=== PATIENT | male | born 1975 | race Caucasian/White ===

== ENCOUNTER 2017-06-26 11:18 | Emergency (ER) | payer OTHER, SELFPAY ==
[2017-06-26 11:19] VITALS: BP 153/108; PULSE 84; RESP 18; TEMP 37; O2SAT 95; BMI 41.5
--- NOTE | 2017-06-26 11:52 | RAD_ITS ---
STUDY: X-RAY CHEST REASON FOR EXAM: Male, 41 years old. Shortness of breath. Chest tightness. TECHNIQUE: Single AP portable view of the chest. COMPARISON: Comparison is made with prior study dated October 10, 2015. FINDINGS: EKG electrodes are seen. Stable elevation of the right hemidiaphragm. No acute abnormality is seen. There is no demonstrated pleural abnormality. There is borderline cardiomegaly. Normal mediastinum and justin. Normal visualized pulmonary arteries. Normal visualized aortic arch and descending thoracic aorta. Normal visualized thoracic spine. Normal visualized ribs, clavicles, and shoulders. There is no demonstrated abnormality of the visualized soft tissue structures of the upper abdomen. RAD/Chest 1 View (Portable) IMPRESSION: No acute abnormality is seen. Electronically Signed: Ambrose Pena MD at 12:52 EDT Tel [phone], Service support ,
--- NOTE | 2017-06-26 11:52 | EKG12_ITS ---
Test Reason : CHEST HEAVINESS Blood Pressure : / mmHG Vent. Rate : 072 BPM Atrial Rate : 072 BPM P-R Int : 154 ms QRS Dur : 160 ms QT Int : 424 ms P-R-T Axes : 021 013 -11 degrees QTc Int : 464 ms Normal sinus rhythm Right bundle branch block T wave abnormality, consider inferior ischemia Abnormal ECG Confirmed by MYRA COTTO, AILEEN ([id number]), editor publications HAYLEE BAKER ([id number]) on 07/02/2017 2:50:04 PM Referred By: ATIF Confirmed By:AILEEN RENTERIA MD
[2017-06-26 11:59] VITALS: BP 144/99; PULSE 76; RESP 16; O2SAT 95
[2017-06-26 12:06] VITALS: BP 144/99; BP 145/109; BP 150/107; PULSE 76; PULSE 78; PULSE 82
[2017-06-26] MEDS: 0.9% Normal Saline 1,000 ML 1000 ML IV (12:15)
[2017-06-26 12:21] LABS: Absolute Lymphocyte Count 0.72 X10^3/ul (0.83-4.51); Absolute Neutrophil Count 6.1 X10^3/uL (2.0-7.7); Basophil# 0.01 X10^3/uL; Basophil% 0.1 % (0-1); Hematocrit 42.1 % (40-54); Hemoglobin 14.7 g/dl (13.0-16.5); Lymphocyte # 0.72 X10^3/ul (4.0); Lymphocyte % 10.3 % (19-41); Mean Corp Hgb Conc 34.9 g/gl (32-36); Mean Corpuscular Hgb 31.1 pg (27.0-32.0); Mean Corpuscular Volume 89.2 fL (80-94); Mean Platelet Vol. 9.9 fl (6.2-12.0); Monocyte# 0.18 X10^3/uL; Monocyte% 2.6 % (0-10); Neutrophil # 6.06 X10^3/uL (2.7-7.7); Neutrophil % 86.6 % (47-70); Platelet Count 242 K/mm3 (150-450); RBC Distribution Width CV 13.4 % (11.6-14.6); RBC Distribution Width SD 43.2 fl (35.1-43.9); Red Blood Count 4.72 M/mm3 (4.6-6.2)
[2017-06-26 12:23] LABS: POSITIVE COUNT NO; POSITIVE DIFFERENTIAL NO; POSITIVE MORPHOLOGY NO
[2017-06-26 12:33] LABS: Prothrombin Time (Protime)PT. 12.7 SECONDS (11.7-14.9)
[2017-06-26 12:34] LABS: Partial Thromboplast Time 24.1 Seconds (24.1-36.2)
--- NOTE | 2017-06-26 12:43 | ED.DCSUM_ITS ---
- ER Visit Summary Date of Service: 06/26/17 Chief Complaint: Blood in stool History of Present Illness: The patient is a [address] Lindsay. He reports that he has had 2 episodes of bright red blood from the rectum today. He denies having had a hard stool prior to this. No diarrhea. Reports that he is a dull, aching left lower quadrant abdominal pain that began today as well. Is 4 out of 10 at worst and 2 out of 10 currently. Is worsened by nothing and relieved by nothing. He has had nausea without vomiting. Patient also reports that he has had a chest heaviness intermittently for the past 3 days since having an allergic reaction. He reports that it lasts 10-15 minutes at a time. Is not related to exertion periods happening multiple times per day. He does report that he is more short of breath with exertion and usual. He denies any diaphoresis with this pain. Physical Examination: Vitals: Stable. Afebrile. General: Well-nourished and well-developed. Head: Normocephalic atraumatic. Neck: Supple, no lymphadenopathy. No JVD. Nontender. Cardiovascular: Regular rate and rhythm. No murmurs. Respiratory: No respiratory distress. Clear to auscultation bilaterally. Abdominal: Soft, nontender, nondistended, normal bowel sounds. No guarding, rebound, or peritoneal signs. Rectal: No external source of bleeding. No fissures or external hemorrhoids. Stool is brown, with bright red blood. Back: Nontender. Extremities: Nontender, no edema. Skin: Normal color, no rash. Neurologic: Alert and oriented ?3. Cranial nerves II through XII are intact. Normal strength and sensation. Psych: Normal affect. Test Results: EKG is sinus at 72 with right bundle branch block. This is unchanged from March 2015. CBC is remarkable for segment neutrophils of 87 lymphocytes of 10. Of note his hemoglobin is 14.7. INR is 1.0. PTT is 24.1. Chest x-ray shows cardiomegaly and no acute disease. Emergency Department Course and Treatment: Orthostatic vital signs were negative. Patient is resting comfortably. He has had no further bleeding while here. I had a prolonged discussion with the patient and his about treatment options. He was admitted and had a stress test 2 years ago. He does not want to stay for a cardiac workup. Did discuss with him regarding the blood in his stool that likely he would be admitted the hospital overnight and have a repeat hemoglobin. If this is remained stable he will be discharged home. The patient does not want to be admitted to the hospital. I feel that is a reasonable course of action. Treatment Plan: Patient will be discharged instructions to follow-up with Dr. Lindsay as soon as possible. He is also instructed to follow-up with Dr. Roy for further evaluation of the bleeding. Return to the emergency department for worsening bleeding, chest pain, shortness of breath, or for any other concerns. Disposition: To home in improved and stable condition. Impression: 1. Stable lower GI bleed. 2. Atypical chest pain. This note was generated with [employer] dictation software. It may contain incorrect words, spelling, and punctuation that were not noted in review of the chart prior to signing ED Disposition - Plan for ED Patient: Chief Complaint: GI Bleed Instructions: ED Hematochezia Stable, ED Chest Pain Atypical Unkn Cause Referrals: Ellen Lindsay DO [Primary Care Provider] - As soon as possible Rik Roy MD [STAFF PHYSICIAN] - As soon as possible
[2017-06-26 12:46] LABS: Anion Gap 9 (5-15); BUN 18 mg/dL (7-18); Calcium,Total 8.3 mg/dL (8.5-10.1); Chloride 106 mmol/L (98-107); Creatinine, Serum 1.06 mg/dL (0.70-1.30); EST Glomerular Filtration Rate 81 mL/min (>60); Est Glom Filt Rate - Afr Amer 98 mL/min (>60); Estimated Creatinine Clearance 93.74 ml/min; Glucose 117 mg/dL (74-106); Potassium 3.8 mmol/L (3.5-5.1); Sodium Level 140 mmol/L (136-145)
[2017-06-26 13:19] VITALS: BP 136/95; PULSE 57; RESP 19; O2SAT 93
[2017-06-26 13:44] VITALS: PULSE 67; RESP 21; O2SAT 96
== END 2017-06-26 14:06 | disposition home or self-care (01) ==
PROVIDERS: Emergency Provider Emergency Medicine; Family Provider Family Medicine; PCP Family Medicine
DX: K92.1 Melena (principal); R07.89 Other chest pain; I10 Essential (primary) hypertension; I45.10 Unspecified right bundle-branch block; R10.32 Left lower quadrant pain; Z79.899 Other long term (current) drug therapy
CPT/HCPCS: 71045; 80048; 82274; 84484; 85025; 85610; 85730; 93005; 96360; 99285; J7030; A4216

== ENCOUNTER → 2017-09-22 10:05 | Outpatient (CLI) | payer OTHER, SELFPAY ==
[2017-09-22 11:25] LABS: ALB/GLOB Ratio 1.2 RATIO (0.9-2.4); AST(SGOT) 23 U/L (15-37); Alanine Aminotransfer ALT/SGPT 43 U/L (16-61); Albumin, Serum 3.8 g/dL (3.2-5.0); Alkaline Phosphatase 54 U/L (45-117); Anion Gap 9 (5-15); BUN 18 mg/dL (7-18); Calcium,Total 8.2 mg/dL (8.5-10.1); Chloride 107 mmol/L (98-107); Cholesterol 245 mg/dL (200); EST Glomerular Filtration Rate 87 mL/min (>60); Est Glom Filt Rate - Afr Amer 105 mL/min (>60); Globulin 3.2 g/dL (2.2-4.2); Glucose 95 mg/dL (74-106); High Density Lipoprotein 60 mg/dL; Potassium 4.1 mmol/L (3.5-5.1); Sodium Level 142 mmol/L (136-145); Thyroid Stim Hormone (TSH) 1.76 uIU/mL (0.358-3.74); Triglycerides 150 mg/dL; Very Low Density Lipoprotein 30 mg/dL (5-40)
[2017-09-24 10:43] LABS: Vitamin D,25 Hydroxy 34.9 ng/mL (29.95-100.01)
[2017-09-26 12:06] LABS: Testosterone, Free 12.21 ng/dL (5.00-21.00)
[2017-09-27 16:40] LABS: Testosterone, % Free 4.36 % (1.50-4.20); Testosterone, Total 280 ng/dL (264-916)
== END ==
PROVIDERS: Family Provider Family Medicine; PCP Family Medicine; Visit Provider Family Medicine
DX: E03.9 Hypothyroidism, unspecified (principal); E78.5 Hyperlipidemia, unspecified; E83.51 Hypocalcemia; I10 Essential (primary) hypertension; E29.1 Testicular hypofunction; R53.83 Other fatigue
CPT/HCPCS: 36415; 80053; 80061; 82306; 84402; 84403; 84443

== ENCOUNTER 2017-11-07 05:10 | Emergency (ER) | payer OTHER, SELFPAY ==
[2017-11-07 05:12] VITALS: BP 163/91; PULSE 86; RESP 16; TEMP 36.6; O2SAT 96; BMI 40.1
--- NOTE | 2017-11-07 05:26 | ED.VISSUMM ---
- ER Visit Summary Date of Service: 11/07/17 Chief Complaint: Facial and body rash, swelling and itching History of Present Illness: The patient is a 42 M history of prior allergic reaction in May. States he got up this morning and sputum and jelly and shortly thereafter developed mild facial swelling and rash with itching. He had a EpiPen at home and use that Benadryl is almost completely resolved. He denies any trouble swallowing or breathing currently said he had a hoarse voice at home that resolved with the treatment. Physical Examination: Well-appearing middle-age male. Vital signs are stable afebrile. Pulse ox 96% room air no signs of hypoxia. No distress. H EENT exam he is very minimal swelling of his cheeks. Tongue and posterior pharynx are unremarkable. No trouble swallowing or breathing. No drooling. No stridor. Neck nontender. Lungs clear to auscultation bilaterally. Heart regular rhythm no murmur. Abdomen soft nontender. He is moving all 4 extremities. The neurovascular intact. Back nontender. Skin red rash consistent with allergic reaction on her extremities chest and abdomen. It does edson. Currently he has no highs. Neurologic exam normal. Test Results: None Emergency Department Course and Treatment: P.o. prednisone 40 mg. Treatment Plan: Discharged to home. Prescription for prednisone 40 mg per day for 5 days only if needed. Disposition: Discharge Impression: Acute rash secondary to acute allergic reaction of uncertain etiology This note was generated with [employer] dictation software. It may contain incorrect words, spelling, and punctuation that were not noted in review of the chart prior to signing ED Disposition - Plan for ED Patient: Chief Complaint: Allergic Reaction Referrals: Ellen Lindsay DO [Primary Care Provider] -
--- NOTE | 2017-11-07 05:28 | ED.DEP ---
ED Disposition - Plan for ED Patient: Disposition: Home or Assisted Living Chief Complaint: Allergic Reaction Instructions: ED Allergic Reaction General Other Prescriptions: Prednisone [Deltasone] 40 mg PO DAILY #5 tab Referrals: Ellen Lindsay DO [Primary Care Provider] - As Needed Additional Instructions: Used prednisone if the rash and itching does not resolve. You may keep at home as needed in case she develop another allergic reaction. Return to ER if you are feeling a lot worse or develop severe swelling to your face or tongue.
[2017-11-07] MEDS: predniSONE 20 MG Tablet 40 MG PO (05:34)
[2017-11-07 05:45] VITALS: BP 150/88; PULSE 80; O2SAT 95
== END 2017-11-07 06:26 | disposition home or self-care (01) ==
PROVIDERS: Emergency Provider Emergency Medicine; Family Provider Family Medicine; PCP Family Medicine
DX: T78.40XA Allergy, unspecified, initial encounter (principal); X58.XXXA Exposure to other specified factors, initial encounter; R19.7 Diarrhea, unspecified; I10 Essential (primary) hypertension; F32.9 Major depressive disorder, single episode, unspecified; Z79.899 Other long term (current) drug therapy
CPT/HCPCS: 99282; A4216

== ENCOUNTER → 2018-02-06 14:55 | Outpatient (CLI) | payer OTHER, SELFPAY ==
--- NOTE | 2018-02-06 14:59 | RAD_ITS ---
STUDY: X-RAY - RIGHT KNEE REASON FOR EXAM: Male, 42 years old. Right knee pain and lump. Anterior below the patella. History of reconstructive surgery 16 years ago. TECHNIQUE: 5 view(s) of the knee. COMPARISON: None. FINDINGS: Surgical fixation screw of the medial femoral condyle. Surgical fixation screw proximal tibial diaphysis. Evidence of ACL reconstruction. There are moderately prominent degenerative features of the medial and lateral compartments with joint margin osteophytic lipping most prominent laterally and joint space narrowing most prominent laterally. There are moderate degenerative features of the patellofemoral articulation with joint margin osteophytic lipping. There is no definitive evidence of knee joint effusion. Periarticular soft tissues are unremarkable. The technologist has marked the area of lump. No underlying abnormality is evident radiographically. RAD/Knee 4 or More Views IMPRESSION: Tricompartmental DJD of the knee. Post surgical changes as described. No acute soft tissue process is evident. Electronically Signed: Javier Serrano, at 17:53 EST Tel , Service support ,
== END ==
PROVIDERS: Family Provider Family Medicine; PCP Family Medicine; Referring Provider Family Medicine; Visit Provider Family Medicine
DX: M25.561 Pain in right knee (principal)
CPT/HCPCS: 73564

== ENCOUNTER → 2018-09-10 | Outpatient (CLI) | payer OTHER, SELFPAY ==
[2018-09-10 15:20] LABS: BUN 22 mg/dL (7-18); Creatinine, Serum 1.22 mg/dL (0.70-1.30); EST Glomerular Filtration Rate 69 mL/min (>60); Est Glom Filt Rate - Afr Amer 83 mL/min (>60)
== END | disposition home or self-care (01) ==
LOC: MTLAB 13:24
PROVIDERS: Family Provider Family Medicine; PCP Family Medicine; Referring Provider Nurse Practitioner Family; Visit Provider Nurse Practitioner Family
DX: Z01.818 Encounter for other preprocedural examination (principal)
CPT/HCPCS: 36415; 82565; 84520

== ENCOUNTER → 2019-04-30 13:34 | Outpatient (CLI) | payer OTHER, SELFPAY ==
[2019-04-30 15:49] LABS: Absolute Lymphocyte Count 1.56 X10^3/uL (0.83-4.51); Absolute Neutrophil Count 4.9 X10^3/uL (2.0-7.7); Basophil# 0.02 X10^3/uL; Basophil% 0.3 % (0-1); Eosinophil# 0.14 X10^3/uL; Hematocrit 40.1 % (40-54); Hemoglobin 13.3 g/dL (13.0-16.5); Lymphocyte # 1.56 X10^3/ul (4.0); Lymphocyte % 22.3 % (19-41); Mean Corp Hgb Conc 33.2 g/dL (32-36); Mean Corpuscular Hgb 29.6 pg (27.0-32.0); Mean Corpuscular Volume 89.3 fL (80-94); Mean Platelet Vol. 9.7 fl (6.2-12.0); Monocyte# 0.36 X10^3/uL; Monocyte% 5.2 % (0-10); NRBC Flagged by Analyzer 0 % (0-5); Neutrophil # 4.87 X10^3/uL (2.7-7.7); Neutrophil % 69.8 % (47-70); Platelet Count 255 K/mm3 (150-450); RBC Distribution Width CV 12.9 % (11.6-14.6); RBC Distribution Width SD 41.7 fl (35.1-43.9); Red Blood Count 4.49 M/mm3 (4.6-6.2)
[2019-04-30 16:01] LABS: ALB/GLOB Ratio 1.4 RATIO (0.9-2.4); AST(SGOT) 12 U/L (15-37); Alanine Aminotransfer ALT/SGPT 35 U/L (16-61); Alkaline Phosphatase 72 U/L (45-117); Anion Gap 4 (5-15); BUN 30 mg/dL (7-18); BUN/Creat Ratio 27.3 RATIO (10-20); Calcium,Total 8.5 mg/dL (8.5-10.1); Chloride 110 mmol/L (98-107); EST Glomerular Filtration Rate 77 mL/min (>60); Est Glom Filt Rate - Afr Amer 93 mL/min (>60); Globulin 2.9 g/dL (2.2-4.2); Glucose 102 mg/dL (74-106); Potassium 3.9 mmol/L (3.5-5.1); Protein, Total 6.9 g/dL (6.4-8.2); Sodium Level 140 mmol/L (136-145)
== END ==
PROVIDERS: PCP Family Medicine; Visit Provider Family Medicine
DX: K92.1 Melena (principal); Z51.81 Encounter for therapeutic drug level monitoring
CPT/HCPCS: 36415; 80053; 85025

== ENCOUNTER 2019-05-23 09:54 | Day surgery (SDC) | payer OTHER, SELFPAY ==
--- NOTE | 2019-05-07 03:12 | HP_ITS ---
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: No Is patient in pain?: No Allergies acetaminophen [From Darvocet-N 100] Allergy (Verified 05/07/19 14:44) Other propoxyphene napsylate [From Darvocet-N 100] Allergy (Verified 05/07/19 14:44) Other PEANUT BUTTER Allergy (Uncoded 11/07/17 05:12) Swelling Medications Diclofenac [Voltaren] 100 mg PO DAILY 04/11/15 [History Confirmed 05/07/19] Levothyroxine [Synthroid] 75 mcg PO DAILY 04/11/15 [History Confirmed 05/07/19] Testosterone 200 mg IM QMONTH 06/26/17 [History Confirmed 05/07/19] Ergocalciferol [Vitamin D] 50,000 unit PO Q7D 11/07/17 [History Confirmed 05/07/19] Hydroxyzine HCl 1 tab PO DAILY 11/07/17 [History Confirmed 05/07/19] Lorazepam [Ativan] 1 tab PO QHS 11/07/17 [History Confirmed 05/07/19] amlodipine 5 mg tablet 20 mg PO DAILY tab 05/07/19 [History Confirmed 05/07/19] hydrocodone 5 mg-acetaminophen 325 mg tablet 1 tab PO Q6H PRN 05/07/19 [History Confirmed 05/07/19] omeprazole 10 mg capsule,delayed release 10 mg PO DAILY 05/07/19 [History Confirmed 05/07/19] sucralfate 1 gram tablet 1 g PO .qid tab 05/07/19 [History Confirmed 05/07/19] PFSH Medical History Atypical chest pain (Acute) Obesity (Chronic) Bipolar disorder (Chronic) HLD (hyperlipidemia) (Chronic) Benign essential HTN (Chronic) Black stools (Acute) Surgical History (Updated 05/07/19 @ 14:41 by Chasity Marquez) History of back surgery (Acute) History of knee surgery (Acute) Family History (Updated 05/07/19 @ 14:42 by Chasity Marquez) Father Heart disease Hypertension Hyperlipidemia Seizures Mother Heart disease Hyperlipidemia Hypertension Social History (Updated 05/07/19 @ 15:12 by Albina Dobbins MD) Smoking Status: Never smoker alcohol intake: current substance use type: does not use HPI HPI HPI: FABIÁN MOFFETT, is a 43 M who presents to the office today for HPI HPI Surgical H&P: Yes HPI: FABIÁN MOFFETT, is a 43 M who presents to the office today for melena. Patient states that April 26- he was having dark black stools daily denies any abdominal pain with this except for some occasional lower abdominal dull pain which only last for couple of days. Patient has had a colonoscopy in 2018 which was normal by Dr. Roy patient states that since the patient's had normal bowel movements normal in color no signs of any blood. Patient denies taking any iron or Pepto-Bismol during the time of the darker stools. Patient did see his PCP fecal occult test was done in the office which came back as negative. Patient is on diclofenac due to arthritis but he is also on omeprazole 20 mg p.o. daily as he was having some intermittent regurgitation and intermittent lower chest discomfort and has been on it for about a year. Patient also is now taking Carafate per PCP. ROS General General: Yes fatigue; no weight change, colon cancer, breast cancer or weakness HEENT HEENT: No difficulty swallowing, eye injury, eye surgery, swollen glands or hoarseness Endo Endocrine: No thyroid disease, diabetes mellitus, thyroid cancer, Hair loss, heat intolerance or cold intolerance Skin Skin: No rash or changing moles Breast Breast: No left breast lump, right breast lump, nipple discharge, breast pain, abnormal mammogram, abnormal US or breast enlargement Musc Musculoskeletal: Yes back problems and arthritis; no rheumatoid arthritis, gout or joint pain Cardio Cardiovascular: Yes high blood pressure; no murmur, pacemaker, heart disease, atrial fibrillation, heart attack, heart stent, palpitations, shortness of breat with exertion or chest pain Psych Psychiatric: Yes depression and anxiety; no hearing voices Resp Respiratory: No shortness of breath, Yes sleep apnea, No cough, No COPD, No asthma, No emphysema, No wheezing Gastro Gastrointestinal: Yes abdominal pain, No nausea or vomiting, Yes diarrhea, No constipation, Yes blood in stool, No acid reflux, No hemorrhoids, No ulcers, No gallbladder problem, Yes black,tarry stools Ken Hematologic: No blood thinners, No blood disorders, No bleeding, No anemia, No blood clots Neuro Neurologic: No system reviewed and no additional complaints, except as docu, No as per HPI, No abnormal walking, No abnormal hearing, No abnormal movements, No abnormal speech, No behavioral changes, No burning sensations, No confusion, No seizure-like activity, No unsteadiness, No dizziness, No localized weakness, No frequent falls, No headache(s), No lack of coordination, No loss of vision, No memory loss, Yes numbness, No other visual disturbances, No radiating pain, No restless legs, No sensory deficit, No fainting, Yes tingling, No tremor(s), No weakness, No other Exam Const General: cooperative, comfortable, no acute distress Nutritional Appearance: obese Chest Breast Palpation: No nipple discharge Resp Effort & Inspection: normal respiratory effort Cardio Rate: regular rate Heart Sounds: no murmurs GI Inspection: non-distended Palpation: soft, no guarding, no hernias, nontender Assessment & Plan Problems 1. Melena K92.1 Plan I have discussed the above with the patient. I have offered the patient EGD for evaluation. Patient did have a normal colonoscopy in [address] Roy-- only had the dark stools for 1 week patient also had a fecal occult test done by his PCP during that time which was negative. Discussed with patient we could do a colonoscopy as well however is not guaranteed that we would find anything with the EGD and/or the colonoscopy. Patient decided to just do the EGD for now. However he did state that his may make him do both scopes discussed that he can call and just let us know we can schedule both. I have explained the risks/benefits of the procedure and described the procedure. I have discussed the risks with the patient, including but not limited to: infection, bleeding, perforation of the GI tract requiring emergency surgery, inability to complete the procedure, injury to any internal organs, complications of anesthesia, etc. - the patient understands and agrees to proceed. I have answered all the patient's questions to the patient's satisfaction and the patient has no further questions. The patient has been given instructions for the colon cleansing preparation-1 day of clears, MiraLAX Dulcolax split prep will be given to the patient in case he does end up doing the colonoscopy as well as the EGD. Albina Dobbins M.D. Pager: [phone] [facility] [address] [place] [address], [address] [place] [address] Office: [phone] Plan Detail Follow Up We will schedule EGD Coding Level of Care Code Off vis,new,level 3 Diagnoses Melena K92.1 05/07/19 1512 <Electronically signed by Albina Ruelas am, MD> Date _ Albina Dobbins MD I have examined the patient the following changes are noted: Patient has still been taking his omeprazole unsure between milligrams or 40 mg daily has been able to take Carafate about twice daily at these forgot the other times. Patient denies any reflux or any blood in his stool bright red or black since the initial episode.
[2019-05-07 14:52] VITALS: BMI 40.1
[2019-05-23 10:15] VITALS: BP 140/98; PULSE 75; RESP 16; TEMP 36.8; O2SAT 98; BMI 40.8
[2019-05-23] MEDS: Lactated Ringers 1,000 ML 100 ML IV (10:24)
--- NOTE | 2019-05-23 11:00 | EGD_PTH ---
PATIENT: FABIÁN MOFFETT LOC: EN U#:[id number] AGE/SX: 43/M ROOM: RE05/23/[address]: Dr. Albina Dobbins MD : 1975 BED: DIS: 05/23/2019 SPEC #: [id number] RECD: 05/23/19 11:50 STATUS: LI HUI #: [id number] YARITZA: 05/23/19 11:[address]: Albina Dobbins DEPT: SURGICAL PATHOLOGY RECD BY: Aime Marvin ENTERED: 05/23/19 12:17 SP TYPE: EGD BIOPSY OT DR: DO Ellen Hirsch Tissues: A - Gastric mucous membrane B - Gastric mucous membrane Procedures: Special Stain Group II Surgery Specimen Level IV Alcian Blue/PAS (control) HEADER OPERATION: EGD ([facility] [place]) PRE-OP DIAGNOSIS: Melena TISSUE SUBMITTED: A - Antrum biopsy for histo and H. pylori, B - GE junction biopsy at 43 cm MICROSCOPIC DIAGNOSIS A. Antrum, biopsy: Mild gastritis. See microscopic description and comment. B. GE junction at 43 cm, biopsy: A fragment of gastric mucosa with mild chronic inflammation. Intestinal metaplasia (goblet cell metaplasia) is not identified. See comment. SJ:rg 05/26/19 COMMENT A. The results of immunohistochemistry for Helicobacter pylori will be reported separately ([id number]). B. Alcian blue/PAS stain with matched control is used in the evaluation of the specimen. MICROSCOPIC DESCRIPTION Slides are reviewed. A. The specimen shows fragments of gastric mucosa with chronic inflammatory cell infiltrates in the lamina propria consisting of lymphocytes and plasma cells, consistent with mild chronic gastritis. GROSS DESCRIPTION A - Received in fixative is one container labeled with the patient's name and designated antrum biopsy. The specimen consists of two irregular fragments of light kimble soft tissue that in aggregate measure 0.4 x 0.3 x 0.1 cm. The specimen is totally submitted in one cassette. B - Received in fixative is one container labeled with the patient's name and designated GE junction 43 cm. The specimen consists of one irregular fragment of light kimble soft tissue that measures 0.4 x 0.2 x 0.1 cm. The specimen is totally submitted in one cassette. / BRII:nikki 05/23/19 TC:3 CPT: 32367 x2, 03290
--- NOTE | 2019-05-23 11:00 | IMM_PTH ---
PATIENT: FABIÁN MOFFETT LOC: EN U#:[id number] AGE/SX: 43/M ROOM: RE05/23/[address]: Dr. Albina Dobbins MD : 1975 BED: DIS: 05/23/2019 SPEC #: [id number] RECD: 05/23/19 12:52 STATUS: LI REQ #: [id number] YARITZA: 05/23/19 11:[address]: Albina Dobbins DEPT: IMMUNOHISTOCHEMISTRY RECD BY: Linda Marroquin ENTERED: 05/23/19 12:53 SP TYPE: IMMUNO OTHR DR: DO Ellen Hirsch Tissues: A - Stomach, NOS Procedures: H Pylori (initial) PHYSICIAN & INSTITUTION [place] [id number] SPECIMEN INFORMATION: Tissue Source: A - Antrum biopsy Clinical Info: Shirleyena Specimen Number: [id number] CPT code: 02208 METHODOLOGY: Deparaffinized sections of prefer/formalin-fixed tissue or PAP/DQ stained slides are incubated with monoclonal/polyclonal antibodies/oligonucleotide probes. Localization is made via biotin free immunoperoxidase method. Appropriate controls are performed and reacted as expected. Results on target cell population are indicated in the following table: RESULTS: ANTIBODY / CLONE RESULT Block A H Pylori (polyclonal) negative These tests were developed and their performance characteristics determined by [facility]. They may not have been cleared or approved by the U.S. Food and Drug Administration. The FDA has determined that such clearance or approval is not necessary. INTERPRETATION: A. Antrum biopsy: Negative for Helicobacter pylori organisms. SJ:nikki 05/26/19
[2019-05-23 11:35] VITALS: BP 140/98; BP 141/118; PULSE 87; RESP 16; TEMP 36.8; O2SAT 96
--- NOTE | 2019-05-23 11:36 | OP.CCLET_ITS ---
05/23/2019 Ellen Lindsay [address] [place] [address] Re : Upper GI endoscopy procedure for Khalif Isis Dear Dr. Lindsay This procedure was performed on Thursday, May 23, 2019. My impressions and recommendations are as follows: Impressions : - Z-line irregular, 43 cm from the incisors. Biopsied. - Erythematous mucosa in the antrum. Biopsied. - Normal examined duodenum. - Bilious gastric fluid. Recommendations : - Await pathology results. - Discharge patient to home. - Resume previous diet. - Use Protonix (pantoprazole) 40 mg PO daily. - Continue present medications. My findings are described in the full procedure note, which is enclosed. If I can be of further assistance, please feel free to contact me at Doctor phone number(s): , Work: . Sincerely, MD Albina Parrish MD 05/23/2019 11:35:33 AM This report has been signed electronically.
--- NOTE | 2019-05-23 11:36 | OP.EGD_ITS ---
Patient Name: Khalif Marinelli Procedure Date: 05/23/2019 11:16 AM Date of : 1975 Age: 43 Procedure: Upper GI endoscopy Indications: Melena Providers: Albina Dobbins MD Referring MD: Ellen Lindsay Medicines: Monitored Anesthesia Care Patient Profile: This is a 43 year old male. Complications: No immediate complications. Procedure: Pre-Anesthesia Assessment: - Prior to the procedure, a History and Physical was performed, and patient medications and allergies were reviewed. The patient's tolerance of previous anesthesia was also reviewed. The risks and benefits of the procedure and the sedation options and risks were discussed with the patient. All questions were answered, and informed consent was obtained. Prior Anticoagulants: The patient has taken no previous anticoagulant or antiplatelet agents. ASA Grade Assessment: III - A patient with severe systemic disease. After reviewing the risks and benefits, the patient was deemed in satisfactory condition to undergo the procedure. After obtaining informed consent, the endoscope was passed under direct vision. Throughout the procedure, the patient's blood pressure, pulse, and oxygen saturations were monitored continuously. The gastroscope was introduced through the mouth, and advanced to the second part of duodenum. The upper GI endoscopy was accomplished without difficulty. The patient tolerated the procedure well. Scope In: 11:22:41 AM Scope Out: 11:29:10 AM Total Procedure Duration Time 0 hours 6 minutes 29 seconds Findings: The Z-line was irregular and was found 43 cm from the incisors. Biopsies were taken with a cold forceps for histology. Striped moderately erythematous mucosa with bleeding was found in the gastric antrum. Biopsies were taken with a cold forceps for histology. Biopsies were taken with a cold forceps for Helicobacter pylori cultures. The examined duodenum was normal. The cardia and gastric fundus were normal on retroflexion. Bilious fluid was found in the gastric antrum. Impression: - Z-line irregular, 43 cm from the incisors. Biopsied. - Erythematous mucosa in the antrum. Biopsied. - Normal examined duodenum. - Bilious gastric fluid. Recommendation: - Await pathology results. - Discharge patient to home. - Resume previous diet. - Use Protonix (pantoprazole) 40 mg PO daily. - Continue present medications. Procedure Code(s): --- Professional --- 71016, Esophagogastroduodenoscopy, flexible, transoral; with biopsy, single or multiple Diagnosis Code(s): --- Professional --- K22.8, Other specified diseases of esophagus K31.89, Other diseases of stomach and duodenum K92.1, Melena (includes Hematochezia) CPT copyright 2017 [employer]. All rights reserved. The codes documented in this report are preliminary and upon supervisor wire rope fabrication review may be revised to meet current compliance requirements. MD Albina Parrish MD 05/23/2019 11:35:33 AM This report has been signed electronically. Number of Addenda: 0 Note Initiated On: 05/23/2019 11:16 AM
[2019-05-23 11:40] VITALS: BP 134/86; BP 140/98; PULSE 76; RESP 16; O2SAT 94
[2019-05-23 11:45] VITALS: BP 138/101; BP 140/98; PULSE 73; RESP 16; O2SAT 94
[2019-05-23 11:50] VITALS: BP 137/102; BP 140/98; PULSE 69; RESP 16; TEMP 36.4; O2SAT 94
[2019-05-23 12:24] VITALS: BP 140/98
== END 2019-05-23 12:25 | disposition home or self-care (01) ==
LOC: EN 09:54 → AC 09:57
PROVIDERS: PCP Family Medicine; Referring Provider Family Medicine; Visit Provider Surgery
PROC: 0DJ08ZZ Inspection of Upper Intestinal Tract, Via Natural or Artificial Opening Endoscopic (ICD-10-PCS; CPT 43235; principal; 2019-05-23 10:55)
DX: K29.50 Unspecified chronic gastritis without bleeding (principal); K22.8 Other specified diseases of esophagus; K31.89 Other diseases of stomach and duodenum; K92.1 Melena; R07.89 Other chest pain; K21.9 Gastro-esophageal reflux disease without esophagitis; I10 Essential (primary) hypertension; E78.5 Hyperlipidemia, unspecified; M19.90 Unspecified osteoarthritis, unspecified site; F31.9 Bipolar disorder, unspecified; F41.9 Anxiety disorder, unspecified; E66.9 Obesity, unspecified; Z68.41 Body mass index [BMI] 40.0-44.9, adult; Z79.1 Long term (current) use of non-steroidal anti-inflammatories (NSAID); Z79.899 Other long term (current) drug therapy; Z86.718 Personal history of other venous thrombosis and embolism
CPT/HCPCS: 43239; 88305; 88313; 88342; J7120; J2405

== ENCOUNTER → 2020-05-03 16:53 | Outpatient (CLI) | payer BC, SELFPAY ==
[2019-11-03 14:23] VITALS: BMI 40.8
[2020-05-03 17:43] LABS: Absolute Lymphocyte Count 1.91 X10^3/uL (0.83-4.51); Absolute Neutrophil Count 3.7 X10^3/uL (2.0-7.7); Basophil# 0.04 X10^3/uL; Basophil% 0.6 % (0-1); Eosinophil# 0.19 X10^3/uL; Hematocrit 44.2 % (40-54); Hemoglobin 14.4 g/dL (13.0-16.5); Lymphocyte # 1.91 X10^3/ul (4.0); Lymphocyte % 30.5 % (19-41); Mean Corp Hgb Conc 32.6 g/dL (32-36); Mean Corpuscular Hgb 28.7 pg (27.0-32.0); Mean Platelet Vol. 9.8 fl (6.2-12.0); Monocyte# 0.38 X10^3/uL; Monocyte% 6.1 % (0-10); NRBC Flagged by Analyzer 0 % (0-5); Neutrophil # 3.73 X10^3/uL (2.7-7.7); Neutrophil % 59.6 % (47-70); Platelet Count 265 K/mm3 (150-450); RBC Distribution Width CV 13.2 % (11.6-14.6); RBC Distribution Width SD 42.6 fl (35.1-43.9); Red Blood Count 5.02 M/mm3 (4.6-6.2); White Blood Count 6.3 K/mm3 (4.4-11.0)
[2020-05-03 19:18] LABS: ALB/GLOB Ratio 1.2 RATIO (0.9-2.4); AST(SGOT) 20 U/L (15-37); Alanine Aminotransfer ALT/SGPT 37 U/L (16-61); Albumin, Serum 3.9 g/dL (3.2-5.0); Alkaline Phosphatase 80 U/L (45-117); Anion Gap 7 (5-15); BUN 17 mg/dL (7-18); BUN/Creat Ratio 17.7 RATIO (10-20); Calcium,Total 8.5 mg/dL (8.5-10.1); Chloride 106 mmol/L (98-107); Creatinine, Serum 0.96 mg/dL (0.70-1.30); EST Glomerular Filtration Rate 90 mL/min (>60); Est Glom Filt Rate - Afr Amer 109 mL/min (>60); Globulin 3.2 g/dL (2.2-4.2); Glucose 80 mg/dL (74-106); Potassium 3.5 mmol/L (3.5-5.1); Protein, Total 7.1 g/dL (6.4-8.2); Sodium Level 140 mmol/L (136-145); Thyroid Stim Hormone (TSH) 5.27 uIU/mL (0.358-3.74)
== END ==
PROVIDERS: PCP Family Medicine; Visit Provider Family Medicine
DX: R10.9 Unspecified abdominal pain (principal); E03.9 Hypothyroidism, unspecified
CPT/HCPCS: 36415; 80053; 84439; 84443; 84481; 85025

== ENCOUNTER → 2020-07-07 | Outpatient (CLI) | payer BC, SELFPAY ==
[2019-11-03 14:23] VITALS: BMI 40.8
== END | disposition home or self-care (01) ==
LOC: LABSPEC 15:14
PROVIDERS: PCP Family Medicine; Referring Provider Family Medicine; Visit Provider Family Medicine
DX: R35.0 Frequency of micturition (principal)
CPT/HCPCS: 87077; 87086; 87088; 87186

== ENCOUNTER → 2020-09-13 15:50 | Outpatient (CLI) | payer BC, SELFPAY ==
[2019-11-03 14:23] VITALS: BMI 40.8
--- NOTE | 2020-09-13 15:52 | RAD_ITS ---
STUDY: X-RAY - LEFT KNEE REASON FOR EXAM: Male, 45 years old. Knee pain. TECHNIQUE: 4 view(s) of the knee. COMPARISON: None. FINDINGS: Normal visualized distal femur. Normal visualized proximal tibia and fibula. Normal proximal tibiofibular articulation. Mild medial compartmental arthrosis. Normal lateral femorotibial compartment slight lateral tilt of the patella on the sunrise view. The soft tissue structures are unremarkable. RAD/Knee 4 or More Views IMPRESSION: Mild medial compartmental arthrosis. Slight lateral tilt of the patella on the sunrise view. No other abnormality present. Electronically Signed: Juan Manuel Nielson MD at 12:21 EDT , Service support ,
== END ==
PROVIDERS: PCP Family Medicine; Referring Provider Family Medicine; Visit Provider Family Medicine
DX: M25.562 Pain in left knee (principal)
CPT/HCPCS: 73564

== ENCOUNTER 2021-02-26 15:41 | Inpatient (IN) | payer BC, SELFPAY ==
[2021-02-26] VITALS (11 sets, daily range): BP systolic 154–216; BP diastolic 104–134; PULSE 72–87; RESP 16–17; TEMP 36.1–36.9; O2SAT 90–98; BMI 42.5; BMI 41.6
[2021-02-26 16:28] LABS: Absolute Lymphocyte Count 1.59 X10^3/uL (0.83-4.51); Absolute Neutrophil Count 5.6 X10^3/uL (2.0-7.7); Basophil# 0.02 X10^3/uL; Basophil% 0.3 % (0-1); Eosinophil# 0.19 X10^3/uL; Eosinophils% 2.4 % (0-5); Hematocrit 45.1 % (40-54); Hemoglobin 14.9 g/dL (13.0-16.5); Lymphocyte # 1.59 X10^3/ul (0.83-4.51); Lymphocyte % 20.1 % (19-41); Mean Corpuscular Hgb 28.4 pg (27.0-32.0); Mean Corpuscular Volume 86.1 fL (80-94); Mean Platelet Vol. 9.1 fl (6.2-12.0); Monocyte# 0.49 X10^3/uL; Monocyte% 6.2 % (0-10); NRBC Flagged by Analyzer 0 % (0-5); Neutrophil % 70.6 % (47-70); Platelet Count 287 K/mm3 (150-450); RBC Distribution Width CV 13.5 % (11.6-14.6); Red Blood Count 5.24 M/mm3 (4.6-6.2); White Blood Count 7.9 K/mm3 (4.4-11.0)
[2021-02-26 16:41] LABS: Anion Gap 4 (5-15); BUN 15 mg/dL (7-18); BUN/Creat Ratio 14.9 RATIO (10-20); Calcium,Total 8.9 mg/dL (8.5-10.1); Chloride 107 mmol/L (98-107); Creatinine, Serum 1.01 mg/dL (0.70-1.30); EST Glomerular Filtration Rate 84 mL/min (>60); Est Glom Filt Rate - Afr Amer 102 mL/min (>60); Estimated Creatinine Clearance 94.36 ml/min; Glucose 100 mg/dL (74-106); Potassium 3.8 mmol/L (3.5-5.1); Sodium Level 141 mmol/L (136-145)
--- NOTE | 2021-02-26 17:38 | CT_ITS ---
STUDY: CT ABDOMEN AND PELVIS WITH CONTRAST REASON FOR EXAM: Male, 45 years old. Right-sided abdominal pain RADIATION DOSAGE (If Supplied By Facility): CTDIvol = ( 17.07 ) mGy, DLP = ( 1386.15 ) mGycm TECHNIQUE: CT images were obtained from the dome of the diaphragm to the symphysis pubis without oral contrast. IV 100mL Isovue-370 was administered. Sagittal and coronal images were reconstructed. Individualized dose optimization techniques were used for this CT. COMPARISON: None. FINDINGS: The visualized lung bases are unremarkable. The visualized portions of the heart are within normal limits. Normal liver. Normal gallbladder and extrahepatic biliary system. Normal spleen. Normal pancreas. Normal bilateral adrenal glands. Normal right kidney. Normal left kidney. There is a dilated fluid-filled loop of mid ileum with rapid transition point distally and more smooth transition proximally. Colon is partially decompressed. Appendix is normal. Normal abdominal aorta. Normal inferior vena cava. Normal retroperitoneum. Normal urinary bladder. Normal abdominal wall. Normal osseous structures. CT/Abdomen/Pelvis W IV Cont ONLY IMPRESSION: 1. Early small bowel obstruction. Surgical referral advised. Electronically Signed: Anton Moser MD at 18:46 EST Tel , Service support ,
--- NOTE | 2021-02-26 17:40 | ED.VIS.GI ---
HPI HPI - GI History of Present Illness Chief Complaint: Abd Pain Informant: patient and spouse/S.O. Abdominal Pain/Flank Pain Onset: Days Context: Gradual Onset Timing: Intermittent Quality: Aching and Dull Current Severity: Mild Maximum Severity: Mild Worsened by: Nothing Relieved by: Nothing Nausea/Vomiting/Emesis GI Symptom: Positive for Nausea; Negative for Vomiting Severity: Mild Diarrhea/Melena/Hematochezia GI Symptom: Negative for Diarrhea, Melena and Hematochezia Associated Symptoms Associated Symptoms: Negative for Dysuria, Frequency and Hematuria Narrative Narrative: 45-year-old male history of hypertension. No prior abdominal surgeries. Denies any trauma. This is her third episode has had of right-sided abdominal pain. He has been coming since December. This episode started on Sunday. He kind of waxes and wanes. It is primarily the right side of his abdomen. Associated nausea. No diarrhea. No fever. No dysuria. Prior similar symptoms: Yes Recent Illness/Hospitalization: No PFSH PFSH Medical History (Updated 02/26/21 @ 20:[address] Uvaldo Plummer MD) Atypical chest pain Back problem Benign essential HTN Bipolar disorder Black stools H/O blood clots HLD (hyperlipidemia) Obesity Home Medications diclofenac sodium 100 mg PO DAILY 04/11/15 [History Last Taken 04/10/15 08:00] levothyroxine 75 mcg PO DAILY 04/11/15 [History Last Taken 04/11/15 06:00] ergocalciferol (vitamin D2) 50,000 unit PO MOTH 11/07/17 [History Last Taken Unknown] lorazepam 1 tab PO PRN PRN 11/07/17 [History Last Taken Unknown] amlodipine 5 mg tablet 20 mg PO DAILY tab 05/07/19 [History Last Taken Unknown] omeprazole 10 mg capsule,delayed release 20 mg PO DAILY cap 06/26/19 [History Last Taken Unknown] Allergy/AdvReac Type Severity Reaction Status Date / Time acetaminophen Allergy Other Verified 02/26/21 15:42 [From Darvocet-N 100] propoxyphene napsylate Allergy Other Verified 02/26/21 15:42 [From Darvocet-N 100] Family History Father Heart disease Hypertension Hyperlipidemia Seizures Depression Mother Heart disease Hyperlipidemia Hypertension Anxiety Arthritis defect Depression Myocardial infarction Grandfather Heart disease Myocardial infarction Unknown Alcoholism Surgical History History of back surgery History of knee surgery Social History Smoking Status: Never smoker alcohol intake: current substance use type: does not use what type of physical activity do you participate in: other frequency: 5-6 times per week ROS ROS ED ROS Narrative Abdominal pain with nausea. Review of Systems ROS Unobtainable: Denies due to encephalopathy Constitutional Constitutional ED: Denies chills or fever(s) ENT ENT ED: Denies ear pain or sore throat Cardiovascular Cardiovascular: Denies chest pain Respiratory/Chest Respiratory/Chest: Denies cough or dyspnea Gastrointestinal Gastrointestinal: Reports abdominal pain and nausea; Denies diarrhea Genitourinary Genitourinary ED: Denies dysuria Musculoskeletal Musculoskeletal: Denies myalgias Integumentary Denies rash Neurologic Neurologic: Denies headache(s) Psychiatric Psychiatric: Denies depression Endocrine Endocrinology: Denies polyuria Hematologic/Lymphatic Hematologic/Lymphatic: Denies easy bruising Allergic/Immunologic Allergic/Immunologic ED: Denies urticaria EXAM Physical Exam Narrative Exam Narrative: Residual male vital signs are stable initial blood pressure is elevated 216 and 134. HEENT exam unremarkable. Neck nontender. Lungs clear to auscultation bilaterally. Heart regular rhythm rate about 70 no murmur. Abdomen obese but soft nondistended normal bowel sounds no peritoneal signs mild right sided tenderness no Blood sign or McBurney's point tenderness. Extremities moves all 4. Calves are nontender. Neurologically awake alert with no focal motor deficits. Back nontender. Const Vital Signs: 02/26/21 15:44 02/26/21 18:04 02/26/21 20:00 Temperature 97 F L 97.3 F L Temperature Source Temporal Temporal Pulse Rate 72 75 Respiratory Rate 16 16 Blood Pressure 216/134 H 175/116 H Blood Pressure Mean 161 135 Pulse Ox 97 97 Oxygen Delivery Method Room Air Room Air 02/26/21 20:08 Temperature 97.3 F L Temperature Source Temporal Pulse Rate 87 Respiratory Rate 16 Blood Pressure 190/122 H Blood Pressure Mean 144 Pulse Ox 97 Oxygen Delivery Method Room Air Positive well nourished, well developed and obese; Negative for cachectic, contractures or unkempt General Appearance ED: well developed and NAD; Negative for unkempt, cachectic, contractures or pallor Nutritional Appearance: obese; Negative for cachectic HEENT Reports moist mucous membranes normocephalic and atraumatic; Negative for trauma or tenderness Eyes PERRL and EOMs intact bilaterally Neck no lymphadenopathy, supple and no JVD General: Negative for tenderness Resp normal respiratory effort and clear to auscultation bilaterally Auscultation: Negative for rales, rhonchi, wheezes or diminished lung sounds Cardio regular rate, regular rhythm, S1 normal heart sound, S2 normal heart sound and no murmurs GI non-distended and no masses; Negative for non-tender Inspection: abdominal distention Auscultation: normoactive bowel sounds Palpation: soft, tender and rebound tenderness present; Negative for guarding or rigid Back/Spine no CVA tenderness General Back: Negative for CVA tenderness Extremity full ROM General Extremety ED: Negative for edema or tenderness General Extremity: Negative for edema Neuro moves all extremities Sensorium / Orientation: alert, oriented to person, oriented to place and oriented to time; Negative for orientation impaired, confused, lethargic or stuporous Motor Exam: strength 5/5 throughout Psych mental status grossly normal and thought process normal Appearance: Negative for unkempt Skin no wounds General Skin Exam: Negative for jaundice or pallor Lesions: no lesions Rashes: no rashes MDM MDM MDM Narrative Medical decision making narrative: 45-year-old male with mild abdominal pain. His third episode since December. He has never had any abdominal surgeries. No fever or weight change. No dysuria. Screening labs and CAT scan are being obtained. Repeat exam unchanged. Is being treated with morphine and Zofran for pain. Also be given Lopressor if his blood pressure does not improve with the pain medication. I spoken to Dr. Fatmata Goldberg of general surgery and she will meet the patient on her service and consult the hospitalist to deal with any blood pressure issues. Lab Data Attestation: I reviewed the patient's lab results. Lab results narrative: CBC shows a normal white count 7.9. Hemoglobin 14.9. Electrolytes unremarkable gap of 4 normal BUN and creatinine. Liver enzymes are unremarkable. Lipase is normal. Labs: Laboratory Results - last 24 hr 02/26/21 02/26/21 02/26/21 14:23 14:23 14:23 WBC 7.9 RBC 5.24 Hgb 14.9 Hct 45.1 MCV 86.1 MCH 28.4 MCHC 33.0 RDW Std Deviation 42.0 RDW Coeff of Bianka 13.5 Plt Count 287 MPV 9.1 Immature Gran % (Auto) 0.400 Neut % (Auto) 70.6 H Lymph % (Auto) 20.1 [place] % (Auto) 6.2 Eos % (Auto) 2.4 Baso % (Auto) 0.3 Absolute Neuts (auto) 5.6 Absolute Lymphs (auto) 1.59 Nucleated RBC % 0 Sodium 141 Potassium 3.8 Chloride 107 Carbon Dioxide 30.0 Anion Gap 4 L BUN 15 Creatinine 1.01 Estim Creat Clear Calc 94.36 Est GFR (MDRD) Af Amer 102 Est GFR (MDRD) Non-Af 84 BUN/Creatinine Ratio 14.9 Glucose 100 Calcium 8.9 Total Bilirubin 0.60 Direct Bilirubin 0.14 AST 21 ALT 43 Alkaline Phosphatase 68 Total Protein 7.1 Albumin 3.6 Globulin 3.5 Lipase 101 Radiography Diagnostic Testing: Clinical Impression(s) from Imaging Studies Abdomen/Pelvis CT 02/26/21 17:38 IMPRESSION: 1. Early small bowel obstruction. Surgical referral advised. Electronically Signed: Anton Moser MD at 18:46 EST Tel , Service support , Discharge Plan Triage Chief Complaint: Abd Pain ED Provider: Uvaldo Plummer Dx/Rx/DC Orders Clinical Impression: Acute pseudo-obstruction of small intestine, Hypertension Prescriptions: No Action omeprazole 10 mg capsule,delayed release(DR/EC) 20 mg PO DAILY RF: 0 levothyroxine 75 MCG tablet 75 mcg PO DAILY RF: 0 diclofenac sodium 50 MG tablet 100 mg PO DAILY RF: 0 ergocalciferol (vitamin D2) 50,000 UNIT capsule 50,000 unit PO MOTH RF: 0 lorazepam 1 MG tablet 1 tab PO PRN PRN (Reason: Anxiety) RF: 0 amlodipine 5 mg tablet 20 mg PO DAILY RF: 0 Primary Care Provider: Ellen Lindsay Referrals: Ellen Lindsay DO [Primary Care Provider] - Disposition Disposition: Acute Care Hospital [facility]
[2021-02-26] MEDS: 0.9% Normal Saline 1,000 ML 1000 ML IV (17:51)
[2021-02-26] MEDS: DiphenhydrAMINE 50 MG/ML Syringe 25 MG IV (18:10)
[2021-02-26] MEDS: MethylPREDNISolone 125 MG/2 ML Vial IV (18:10)
--- NOTE | 2021-02-26 18:11 | ED.RN ---
1805 - called to room. Pt with hives on head and neck. Denies difficulty breathing/swallowing. Dr. Plummer notified and orders recieved.
[2021-02-26 18:38] LABS: AST(SGOT) 21 U/L (15-37); Alanine Aminotransfer ALT/SGPT 43 U/L (16-61); Albumin, Serum 3.6 g/dL (3.2-5.0); Alkaline Phosphatase 68 U/L (45-117); Bilirubin, Direct 0.14 mg/dL (0.00-0.30); Globulin 3.5 g/dL (2.2-4.2); Lipase 101 U/L (73-393); Protein, Total 7.1 g/dL (6.4-8.2)
[2021-02-26] MEDS: morphine 8 MG/ML Syringe IV (20:19)
[2021-02-26] MEDS: Ondansetron 4 MG/2 ML Vial IV (20:19)
[2021-02-26] MEDS: Oxymetazoline 0.05% 1 SPRAY SPRAY.BTL 2 SPRAY NASAL (20:52)
[2021-02-26] MEDS: Lidocaine 4% 5 ML Ampul 2 ML INHALATION (20:52)
[2021-02-26] MEDS: Metoprolol Tartrate 5 MG/5 ML Vial IV ×3 (21:10→21:21)
--- NOTE | 2021-02-26 21:35 | RAD_ITS ---
EXAM: XR Abdomen, 1 View CLINICAL INDICATION: 45 years old, Male; ng placed -- KUB with both diaphragms for NG/OG Verification TECHNIQUE: Frontal supine view of the abdomen/pelvis. This report was created using [employer] technology. COMPARISON: None. FINDINGS: Lower thorax: Blunting of the left costophrenic angle may be due to a small amount of fluid or pleural thickening. Gastrointestinal tract: Unremarkable. Normal bowel gas pattern. Organs: Unremarkable as visualized. No organomegaly. No abnormal calcifications. Bones/joints: No acute pathology. Soft tissues: No acute pathology. Tubes, lines and devices: Enteric tube tip in the stomach. RAD/Abdomen Single View (Portable) IMPRESSION: Enteric tube tip in the stomach. Electronically Signed: Jean-Paul Petersen MD at 22:56 EST Tel , Service support ,
--- NOTE | 2021-02-26 21:36 | PCM.CONS.GEN ---
Assessment & Plan Assessment/Plan (1) Acute pseudo-obstruction of small intestine: PLAN: 1. Early small bowel obstruction: Patient is being admitted in surgical service, Dr. Goldberg. N.p.o. status, NG tube, IV fluid Ringer lactate, rest as per recommendation of surgeon. 2. Hypertension: Blood pressure is elevated. While patient is n.p.o., IV hydralazine 10 mg q. 4 hourly. For systolic blood pressure more than 180 mmHg. 3. Hypothyroidism: Hold Synthroid while patient is n.p.o. At home patient on levothyroxine 75 mcg daily 4. Dyslipidemia: During previous hospitalization in March 2015 for atypical chest pain he is fasting lipid profile showed LDL 150, HDL 45. Stress test was negative. Not on statin or hyperlipidemic agent. Consider as an outpatient when acute issue is resolved 5. Bipolar disorder, chronic back pain and morbid obesity: Weight loss advised. 6.VTE prophylaxis: High risk due to morbid obesity. Recommended Lovenox 40 mg subcu twice daily or heparin 5000 subcutaneous 3 times daily but will leave on surgeon because of possible anticipation of surgery although seems less likely. Bilateral SCDs HPI Consult Data Date of Consult: 02/26/21 HPI Narrative Reason for Consultation: Management of medical problems; hypertension and dyslipidemia HPI Narrative: FABIÁN MOFFETT, is a 45 M gentleman with history of hypertension, morbid obesity came to ER with third episode of abdominal symptom mainly abdominal pain since December 2020. First time, he had abdominal pain which got spontaneously resolved, second time he had mainly nausea and vomiting but not severe abdominal pain and this time mainly abdominal pain which started about 5 days ago, severe, episodic, intermittent right upper quadrant colicky in nature associated with nausea. Abdominal pain is predominantly in the RLQ but during colicky pain it becomes generalized. Patient has loss of appetite but denies vomiting, hematemesis or melena. He had a small bowel movement today but not good flatus. Patient has history of IBS diarrhea predominant but this time bowel movement frequency was decreased and is mildly hard in nature. CT abdomen done in the ER shows early small bowel obstruction. Basic labs are negative for lipase. Liver chemistry within normal limit. No leukocytosis. Patient blood pressure is elevated. Patient had EGD for melena in April [address] Dobbins is found to have erythematous antrum. Hospitalist has been consulted for management of medical problems. Patient denies smoking history. Occasionally drinks alcohol. No substance use [facility] Medical History (Updated 02/26/21 @ 21:[address] Timothy Davis MD) Atypical chest pain Back problem Benign essential HTN Bipolar disorder Black stools H/O blood clots HLD (hyperlipidemia) Obesity Home Medications diclofenac sodium 100 mg PO DAILY 04/11/15 [History Last Taken 04/10/15 08:00] levothyroxine 75 mcg PO DAILY 04/11/15 [History Last Taken 04/11/15 06:00] ergocalciferol (vitamin D2) 50,000 unit PO MOTH 11/07/17 [History Last Taken Unknown] lorazepam 1 tab PO PRN PRN 11/07/17 [History Last Taken Unknown] amlodipine 5 mg tablet 20 mg PO DAILY tab 05/07/19 [History Last Taken Unknown] omeprazole 10 mg capsule,delayed release 20 mg PO DAILY cap 06/26/19 [History Last Taken Unknown] Allergy/AdvReac Type Severity Reaction Status Date / Time acetaminophen Allergy Other Verified 02/26/21 15:42 [From Darvocet-N 100] propoxyphene napsylate Allergy Other Verified 02/26/21 15:42 [From Darvocet-N 100] Family History Father Heart disease Hypertension Hyperlipidemia Seizures Depression Mother Heart disease Hyperlipidemia Hypertension Anxiety Arthritis defect Depression Myocardial infarction Grandfather Heart disease Myocardial infarction Unknown Alcoholism Surgical History History of back surgery History of knee surgery Social History Smoking Status: Never smoker alcohol intake: current substance use type: does not use what type of physical activity do you participate in: other frequency: 5-6 times per week ROS ROS Narrative Constitutional: Weakness, loss of appetite. Morbid obesity HEENT: Reports systems reviewed and no addt'l complaints, except as documented Respiratory/Chest: Denies chest pain, shortness of breath at rest or with exertion Gastrointestinal: Denies coffee ground emesis, hematemesis or vomiting. Rest admission HPI Genitourinary: Denies burning urination or new urinary tract symptoms Musculoskeletal: Denies joint pain and limited range of motion Neurologic: Denies seizure-like activity skin: No ulcer. No rash Endocrinology: Hypothyroidism. Reports systems reviewed and no addt'l complaints, except as documented Hematologic/Lymphatic: Reports systems reviewed and no addt'l complaints, except as documented Rest 12 ROS are negative except as mentioned in HPI Physical Exam Narrative General: Alert, Oriented x3, Cooperative, morbid obesity BMI 42.5 kg/m? HEENT: Mild hearing loss atraumatic, PERRLA, EOMI, Normocephalic Oral: Oral mucosa dry. No Gingival or Mucosal Lesions/ Ulcerations Neck: Supple, No JVD, Negative Carotid Bruits Lungs: Air entry diminished in bilateral lung bases. No crepitation/rhonchi Cardiovascular: Regular rate, Regular Rhythm, Normal S1, Normal S2, No murmurs Abdomen: Tenderness predominantly in the right lower quadrant. Bowel sounds sluggish. No palpable lump. : No renal angle tenderness. No suprapubic tenderness. Extremities: No edema, Capillary Refill Less than 3 Seconds Skin: No rashes, No breakdown Musculoskeletal: No Tenderness to Palpation of Joints or Extremities Neurological: Cranial nerves II-XII grossly intact, DTR 2+/4 and Symmetrical, Neuro grossly intact Psych/Mental Status: Flat affect, in mild pain Lab / Micro Data Result Diagrams: 02/26/21 14:23 02/26/21 14:23 Labs: Laboratory Results - last 24 hr 02/26/21 14:23: WBC 7.9, RBC 5.24, Hgb 14.9, Hct 45.1, MCV 86.1, MCH 28.4, MCHC 33.0, RDW Std Deviation 42.0, RDW Coeff of Bianka 13.5, Plt Count 287, MPV 9.1, Immature Gran % (Auto) 0.400, Neut % (Auto) 70.6 H, Lymph % (Auto) 20.1, [place] % (Auto) 6.2, Eos % (Auto) 2.4, Baso % (Auto) 0.3, Absolute Neuts (auto) 5.6, Absolute Lymphs (auto) 1.59, Nucleated RBC % 0 02/26/21 14:23: Sodium 141, Potassium 3.8, Chloride 107, Carbon Dioxide 30.0, Anion Gap 4 L, BUN 15, Creatinine 1.01, Estim Creat Clear Calc 94.36, Est GFR (MDRD) Af Amer 102, Est GFR (MDRD) Non-Af 84, BUN/Creatinine Ratio 14.9, Glucose 100, Calcium 8.9 02/26/21 14:23: Total Bilirubin 0.60, Direct Bilirubin 0.14, AST 21, ALT 43, Alkaline Phosphatase 68, Total Protein 7.1, Albumin 3.6, Globulin 3.5, Lipase 101 Radiology Impression Abdomen/Pelvis CT 02/26/21 17:38 IMPRESSION: 1. Early small bowel obstruction. Surgical referral advised. Electronically Signed: Anton Moser MD at 18:46 EST Tel , Service support , Charges/Coding Visit Charges Office Visits / Consults: 20002 OV L4 New
--- NOTE | 2021-02-26 22:02 | PCM.HP.STD ---
HPI - General General Date of Admission: 02/26/21 HPI Narrative FABIÁN MOFFETT, is a 45 M who presents with right sided abdominal pain. He is also hypertensive. He states that since December of this year (when he contracted Covid), he has had episodes of abdominal pain. He would have abdominal pain for about 3-5 days. It would wax and wane but never harry. He describes the pain as ranging from a severe dull ache to a sharp pain. This would also be accompanied by nausea, and sometimes emesis. He would note decreased bowel movements at this time, Usually he would have frequent loose stools, he states that he has IBS and this has been going on for years. He had an episode in mid January. He presents to the ED with this third episode, because to his , he seems to be in more pain. He states that his pain is about 8 -9 out of 10, though presently after pain medications and placement of the NG tube, it is a level 5 out of 10. He doesn't recall when he last passed flatus. [facility] Medical History Atypical chest pain Back problem Benign essential HTN Bipolar disorder Black stools H/O blood clots HLD (hyperlipidemia) Obesity Home Medications diclofenac sodium 100 mg PO DAILY 04/11/15 [History Last Taken 04/10/15 08:00] levothyroxine 75 mcg PO DAILY 04/11/15 [History Last Taken 04/11/15 06:00] ergocalciferol (vitamin D2) 50,000 unit PO MOTH 11/07/17 [History Last Taken Unknown] lorazepam 1 tab PO PRN PRN 11/07/17 [History Last Taken Unknown] amlodipine 5 mg tablet 20 mg PO DAILY tab 05/07/19 [History Last Taken Unknown] omeprazole 10 mg capsule,delayed release 20 mg PO DAILY cap 06/26/19 [History Last Taken Unknown] Allergy/AdvReac Type Severity Reaction Status Date / Time acetaminophen Allergy Other Verified 02/26/21 15:42 [From Darvocet-N 100] propoxyphene napsylate Allergy Other Verified 02/26/21 15:42 [From Darvocet-N 100] Family History Father Heart disease Hypertension Hyperlipidemia Seizures Depression Mother Heart disease Hyperlipidemia Hypertension Anxiety Arthritis defect Depression Myocardial infarction Grandfather Heart disease Myocardial infarction Unknown Alcoholism Surgical History History of back surgery History of knee surgery Social History Smoking Status: Never smoker alcohol intake: current substance use type: does not use what type of physical activity do you participate in: other frequency: 5-6 times per week ROS Constitutional Constitutional: Denies fever(s) Cardiovascular Cardiovascular: Denies chest pain Respiratory/Chest Respiratory/Chest: Denies productive cough Gastrointestinal Gastrointestinal: Reports abdominal pain and nausea Genitourinary Genitourinary: Denies hematuria Musculoskeletal Musculoskeletal: Denies joint swelling Integumentary Integumentary: Denies jaundice Vital Signs Vital Signs Vital Signs: 02/26/21 15:44 02/26/21 18:04 02/26/21 20:00 Temperature 97 F L 97.3 F L Temperature Source Temporal Temporal Pulse Rate 72 75 Respiratory Rate 16 16 Blood Pressure 216/134 H 175/116 H Blood Pressure Mean 161 135 Pulse Ox 97 97 Oxygen Delivery Method Room Air Room Air Oxygen Flow Rate (L/min) 02/26/21 20:08 02/26/21 20:38 02/26/21 21:11 Temperature 97.3 F L 97.5 F L Temperature Source Temporal Temporal Pulse Rate 87 74 76 Respiratory Rate 16 17 Blood Pressure 190/122 H 180/120 H 175/107 H Blood Pressure Mean 144 140 129 Pulse Ox 97 98 Oxygen Delivery Method Room Air Room Air Oxygen Flow Rate (L/min) 02/26/21 21:17 02/26/21 21:22 02/26/21 21:23 Temperature 97.8 F Temperature Source Temporal Pulse Rate 75 72 Respiratory Rate 17 Blood Pressure 169/115 H 174/116 H Blood Pressure Mean 133 135 Pulse Ox 90 94 Oxygen Delivery Method Room Air Nasal Cannula Oxygen Flow Rate (L/min) 2 02/26/21 21:53 Temperature Temperature Source Pulse Rate 76 Respiratory Rate Blood Pressure 162/120 H Blood Pressure Mean 134 Pulse Ox 96 Oxygen Delivery Method Nasal Cannula Oxygen Flow Rate (L/min) 2 Weight Weight: 134.263 kg Body Mass Index (BMI) 42.5 Physical Exam Const oriented x3 Resp normal respiratory effort Cardio regular rate GI GI Narrative: abdomen is obese, tender generalized, no bowel sounds Extremity no clubbing, cyanosis or edema Results Lab / Micro Data Result Diagrams: 02/26/21 14:23 02/26/21 14:23 Labs: Laboratory Results - last 24 hr 02/26/21 14:23: WBC 7.9, RBC 5.24, Hgb 14.9, Hct 45.1, MCV 86.1, MCH 28.4, MCHC 33.0, RDW Std Deviation 42.0, RDW Coeff of Bianka 13.5, Plt Count 287, MPV 9.1, Immature Gran % (Auto) 0.400, Neut % (Auto) 70.6 H, Lymph % (Auto) 20.1, [place] % (Auto) 6.2, Eos % (Auto) 2.4, Baso % (Auto) 0.3, Absolute Neuts (auto) 5.6, Absolute Lymphs (auto) 1.59, Nucleated RBC % 0 02/26/21 14:23: Sodium 141, Potassium 3.8, Chloride 107, Carbon Dioxide 30.0, Anion Gap 4 L, BUN 15, Creatinine 1.01, Estim Creat Clear Calc 94.36, Est GFR (MDRD) Af Amer 102, Est GFR (MDRD) Non-Af 84, BUN/Creatinine Ratio 14.9, Glucose 100, Calcium 8.9 02/26/21 14:23: Total Bilirubin 0.60, Direct Bilirubin 0.14, AST 21, ALT 43, Alkaline Phosphatase 68, Total Protein 7.1, Albumin 3.6, Globulin 3.5, Lipase 101 Radiology Impression Abdomen/Pelvis CT 02/26/21 17:38 IMPRESSION: 1. Early small bowel obstruction. Surgical referral advised. Electronically Signed: Anton Moser MD at 18:46 EST Tel , Service support , Assessment & Plan Assessment/Plan (1) Acute pseudo-obstruction of small intestine: PLAN: admit to hospital place NG tube IV hydration Pain medications antacid med via IV observation, consider repeat CT scan tomorrow with oral contrast
--- NOTE | 2021-02-26 22:21 | PCS.PANDOC ---
PANDEMIC DOCUMENTATION INITIATED: Date: 02/26/2021 Time: 2204
[2021-02-26] MEDS: Famotidine 200 MG/20 ML MDV 20 MG in 0.9% Normal Saline (Pres. free 8 ML 300 MG IV (22:41)
[2021-02-26] MEDS: Lactated Ringers 1,000 ML 125 ML IV (22:48)
[2021-02-26] MEDS: Morphine 4 MG/ML Syringe IV (23:00)
[2021-02-27] VITALS (8 sets, daily range): BP systolic 150–176; BP diastolic 80–115; PULSE 69–80; RESP 16–20; TEMP 36.6–36.8; O2SAT 96–98
[2021-02-27] MEDS: Morphine 4 MG/ML Syringe IV ×4 (05:48→18:38)
[2021-02-27] MEDS: 0.9% Saline Lock 10 ML Syringe IV (05:49)
[2021-02-27] MEDS: Lactated Ringers 1,000 ML 125 ML IV ×3 (06:38→22:03)
--- NOTE | 2021-02-27 09:56 | PCM.PN.SRG ---
Subjective Subjective Patient feels slightly improved, pain rating is 4 out of 10 feels minimally hungry feels some rumbling of the abdomen - no flatus Objective Data Objective Data Vital Signs: Vital Signs Temp Pulse Resp BP Pulse Ox 98.0 F 69 16 153/99 H 96 02/27/21 05:37 02/27/21 05:37 02/27/21 05:37 02/27/21 06:29 02/27/21 05:37 Oxygen Flow Rate (L/min) 1 Oxygen Delivery Method Nasal Cannula Weight: 131.8 kg Body Mass Index (BMI) 41.6 Intake & Output: Intake and Output for Last 24 Hours 02/25/21 02/26/21 02/27/21 23:59 23:59 23:59 Intake Total 1010 / 1010 989.17 / 989.17 Output Total 400 / 400 Balance 1010 / 1010 589.17 / 589.17 Lab / Micro Data Result Diagrams: 02/26/21 14:23 02/26/21 14:23 Labs: Laboratory Results - last 24 hr 02/26/21 14:23: WBC 7.9, RBC 5.24, Hgb 14.9, Hct 45.1, MCV 86.1, MCH 28.4, MCHC 33.0, RDW Std Deviation 42.0, RDW Coeff of Bianka 13.5, Plt Count 287, MPV 9.1, Immature Gran % (Auto) 0.400, Neut % (Auto) 70.6 H, Lymph % (Auto) 20.1, [place] % (Auto) 6.2, Eos % (Auto) 2.4, Baso % (Auto) 0.3, Absolute Neuts (auto) 5.6, Absolute Lymphs (auto) 1.59, Nucleated RBC % 0 02/26/21 14:23: Sodium 141, Potassium 3.8, Chloride 107, Carbon Dioxide 30.0, Anion Gap 4 L, BUN 15, Creatinine 1.01, Estim Creat Clear Calc 94.36, Est GFR (MDRD) Af Amer 102, Est GFR (MDRD) Non-Af 84, BUN/Creatinine Ratio 14.9, Glucose 100, Calcium 8.9 02/26/21 14:23: Total Bilirubin 0.60, Direct Bilirubin 0.14, AST 21, ALT 43, Alkaline Phosphatase 68, Total Protein 7.1, Albumin 3.6, Globulin 3.5, Lipase 101 Radiography Diagnostic Testing: Radiology Impression Abdomen/Pelvis CT 02/26/21 17:38 IMPRESSION: 1. Early small bowel obstruction. Surgical referral advised. Electronically Signed: Anton Moser MD at 18:46 EST Tel , Service support , KUB X-Ray 02/26/21 21:35 IMPRESSION: Enteric tube tip in the stomach. Electronically Signed: Jean-Paul Petersen MD at 22:56 EST Tel , Service support , Physical Exam Const alert and oriented x3 General Appearance: cooperative Neck full ROM and supple Resp normal respiratory effort Cardio regular rate GI GI Narrative: abdomen is soft and with generalized tenderness to deep palpation only - no peritoneal signs Extremity Negative for no clubbing, cyanosis or edema Assessment & Plan Assessment/Plan (1) Acute pseudo-obstruction of small intestine: PLAN: Continue NG tube decompression, IV hydration patient complaint of heartburn - will change from famotidine to protonix check labs later today may consider repeat CT scan -this time with oral contrast - may be therapeutic with gastrografin as well as diagnostic discussed all of above with patient
--- NOTE | 2021-02-27 11:12 | PCM.PN.HOSP ---
Subjective Subjective Patient is complaining of heartburn but has no other acute complaints. He continues to have some abdominal pain that seems to be more diffuse and he describes it more of an aching that appear pain. No flatus or bowel movement. Last bowel movement that was normal was the day prior to yesterday. He states he did have a small bowel movement yesterday but it was not typical for him. He states he has IBS at baseline and typically has diarrhea associated with this. Objective Data Objective Data Vital Signs: Vital Signs Temp Pulse Resp BP Pulse Ox 98 F 80 20 H 158/90 H 98 02/27/21 09:50 02/27/21 09:50 02/27/21 09:50 02/27/21 09:50 02/27/21 09:50 Oxygen Flow Rate (L/min) 1 Oxygen Delivery Method Room Air Weight: 131.8 kg Body Mass Index (BMI) 41.6 Intake & Output: Intake and Output for Last 24 Hours 02/25/21 02/26/21 02/27/21 23:59 23:59 23:59 Intake Total 1010 / 1010 989.17 / 989.17 Output Total 550 / 550 Balance 1010 / 1010 439.17 / 439.17 Lab / Micro Data Result Diagrams: 02/26/21 14:23 02/26/21 14:23 Labs: Laboratory Results - last 24 hr 02/26/21 14:23: WBC 7.9, RBC 5.24, Hgb 14.9, Hct 45.1, MCV 86.1, MCH 28.4, MCHC 33.0, RDW Std Deviation 42.0, RDW Coeff of Bianka 13.5, Plt Count 287, MPV 9.1, Immature Gran % (Auto) 0.400, Neut % (Auto) 70.6 H, Lymph % (Auto) 20.1, [place] % (Auto) 6.2, Eos % (Auto) 2.4, Baso % (Auto) 0.3, Absolute Neuts (auto) 5.6, Absolute Lymphs (auto) 1.59, Nucleated RBC % 0 02/26/21 14:23: Sodium 141, Potassium 3.8, Chloride 107, Carbon Dioxide 30.0, Anion Gap 4 L, BUN 15, Creatinine 1.01, Estim Creat Clear Calc 94.36, Est GFR (MDRD) Af Amer 102, Est GFR (MDRD) Non-Af 84, BUN/Creatinine Ratio 14.9, Glucose 100, Calcium 8.9 02/26/21 14:23: Total Bilirubin 0.60, Direct Bilirubin 0.14, AST 21, ALT 43, Alkaline Phosphatase 68, Total Protein 7.1, Albumin 3.6, Globulin 3.5, Lipase 101 Radiography Diagnostic Testing: Radiology Impression Abdomen/Pelvis CT 02/26/21 17:38 IMPRESSION: 1. Early small bowel obstruction. Surgical referral advised. Electronically Signed: Anton Moser MD at 18:46 EST Tel , Service support , KUB X-Ray 02/26/21 21:35 IMPRESSION: Enteric tube tip in the stomach. Electronically Signed: Jean-Paul Petersen MD at 22:56 EST Tel , Service support , Physical Exam Const alert, oriented x3 and no apparent distress Constitutional Narrative: Morbidly obese legs white male sitting up in bed, appears comfortable, nontoxic, NG tube in place Exam Limitations: no limitations Nutritional Appearance: morbidly obese HEENT head/scalp atraumatic and moist oral mucous membranes HEENT Narrative: No thrush, Mallampati 3 Head and Scalp: normocephalic Resp normal respiratory effort, no retractions, no use of accessory muscles and clear to auscultation bilaterally Auscultation: Negative for crackles, rales, rhonchi or wheezes Cardio regular rate, regular rhythm, S1 normal heart sound, S2 normal heart sound, no murmurs, no rub, no gallops, no clicks and no JVD GI soft to palpation and non-distended GI Narrative: Hypoactive bowel sounds, mild use tenderness Palpation: tender Extremity no clubbing, cyanosis or edema Peripheral Pulses: Yes pulses 2+ throughout Neuro oriented x3, moves all extremities and no focal motor deficits Sensorium / Orientation: awake and alert Speech: speech normal Assessment & Plan Assessment/Plan (1) Acute pseudo-obstruction of small intestine: (2) Hypertension: (3) HLD (hyperlipidemia): QUALIFIERS: Hyperlipidemia type: unspecified Qualified Code(s): E78.5 - Hyperlipidemia, unspecified PLAN: Acute pseudoobstruction of the small intestine -Continue IV fluids but would recommend decrease rate -IV Protonix -Continue NG tube for decompression -General surgery is following and documents that they may consider repeat CT scan this afternoon Hypothyroidism -Hold Synthroid until patient is able to take p.o. -If n.p.o. for greater than 1 week we will give IV dose weekly Hyperlipidemia -Patient is currently on not on a statin Hypertension -Continue IV hydralazine as ordered but change parameters to systolic blood pressure greater than 160 as threshold for dosing -Restart amlodipine once p.o. intake has been reinitiated GERD -IV PPI started per general surgery -Patient is on oral omeprazole at home Bipolar disorder -Patient is not on any chronic medication for this Vitamin D deficiency -Restart ergocalciferol once p.o. intake is allowed Chronic back pain -Restart home medications once able Morbid obesity -Recommend weight loss -Complicates overall treatment, prognosis, outcomes DVT prophylaxis -Start heparin 5000 units 3 times daily -SCDs CODE STATUS -Full code Charges/Coding Visit Charges Inpatient E&M: 72065 Subs Hosp L2
[2021-02-27 12:10] LABS: Anion Gap 5 (5-15); BUN 15 mg/dL (7-18); BUN/Creat Ratio 15.5 RATIO (10-20); Calcium,Total 8.4 mg/dL (8.5-10.1); Chloride 108 mmol/L (98-107); Creatinine, Serum 0.96 mg/dL (0.70-1.30); EST Glomerular Filtration Rate 89 mL/min (>60); Est Glom Filt Rate - Afr Amer 108 mL/min (>60); Estimated Creatinine Clearance 99.28 ml/min; Glucose 102 mg/dL (74-106); Potassium 3.8 mmol/L (3.5-5.1); Sodium Level 141 mmol/L (136-145)
[2021-02-27] MEDS: Heparin Injection (Vial) 5,000 UNIT/ML VIAL 5000 UNIT SC ×2 (14:44→22:03)
[2021-02-27] MEDS: hydrALAZINE 20 MG/ML Vial 10 MG IV (22:17)
[2021-02-27] MEDS: Ondansetron 4 MG/2 ML Vial IV (23:00)
[2021-02-28 04:00] VITALS: BP 156/94; PULSE 86; RESP 16; TEMP 36.9; O2SAT 98
[2021-02-28 05:59] LABS: Absolute Lymphocyte Count 0.93 X10^3/uL (0.83-4.51); Absolute Neutrophil Count 8.5 X10^3/uL (2.0-7.7); Basophil# 0.03 X10^3/uL; Basophil% 0.3 % (0-1); Eosinophil# 0.01 X10^3/uL; Eosinophils% 0.1 % (0-5); Hematocrit 44.6 % (40-54); Hemoglobin 14.5 g/dL (13.0-16.5); Lymphocyte # 0.93 X10^3/ul (0.83-4.51); Lymphocyte % 9.2 % (19-41); Mean Corp Hgb Conc 32.5 g/dL (32-36); Mean Corpuscular Hgb 28.2 pg (27.0-32.0); Mean Corpuscular Volume 86.8 fL (80-94); Mean Platelet Vol. 9.6 fl (6.2-12.0); Monocyte# 0.54 X10^3/uL; Monocyte% 5.4 % (0-10); NRBC Flagged by Analyzer 0 % (0-5); Neutrophil # 8.53 X10^3/uL (2.7-7.7); Neutrophil % 84.5 % (47-70); Platelet Count 290 K/mm3 (150-450); RBC Distribution Width CV 13.4 % (11.6-14.6); RBC Distribution Width SD 42.2 fl (35.1-43.9); Red Blood Count 5.14 M/mm3 (4.6-6.2); White Blood Count 10.1 K/mm3 (4.4-11.0)
[2021-02-28 06:39] LABS: AST(SGOT) 14 U/L (15-37); Alanine Aminotransfer ALT/SGPT 37 U/L (16-61); Albumin, Serum 3.4 g/dL (3.2-5.0); Alkaline Phosphatase 64 U/L (45-117); Anion Gap 7 (5-15); BUN 14 mg/dL (7-18); BUN/Creat Ratio 15.4 RATIO (10-20); Calcium,Total 8.5 mg/dL (8.5-10.1); Chloride 105 mmol/L (98-107); Creatinine, Serum 0.91 mg/dL (0.70-1.30); EST Glomerular Filtration Rate 95 mL/min (>60); Est Glom Filt Rate - Afr Amer 115 mL/min (>60); Estimated Creatinine Clearance 104.73 ml/min; Globulin 3.3 g/dL (2.2-4.2); Glucose 116 mg/dL (74-106); Potassium 3.6 mmol/L (3.5-5.1); Protein, Total 6.7 g/dL (6.4-8.2); Sodium Level 140 mmol/L (136-145)
[2021-02-28] MEDS: Lactated Ringers 1,000 ML 125 ML IV (06:44)
[2021-02-28] MEDS: Heparin Injection (Vial) 5,000 UNIT/ML VIAL 5000 UNIT SC (06:45)
--- NOTE | 2021-02-28 08:15 | PN.SURG_ITS ---
Subjective Subjective patient states that he has passed gas also states has no abdominal pain - feels sore Objective Data Objective Data Vital Signs: Vital Signs Temp Pulse Resp BP Pulse Ox 98.5 F 86 16 156/94 H 98 02/28/21 04:00 02/28/21 04:00 02/28/21 04:00 02/28/21 04:00 02/28/21 04:00 Oxygen Flow Rate (L/min) 2 Oxygen Delivery Method Nasal Cannula Weight: 131.8 kg Body Mass Index (BMI) 41.6 Intake & Output: Intake and Output for Last 24 Hours 02/26/21 02/27/21 02/28/21 23:59 23:59 23:59 Intake Total 1010 / 1010 3873.75 / 3883.75 1130 / 1130 Output Total 1350 / 2000 1625 / 1625 Balance 1010 / 1010 2523.75 / 1883.75 -495 / -495 Lab / Micro Data Result Diagrams: 02/28/21 05:10 02/28/21 05:10 Labs: Laboratory Results - last 24 hr 02/27/21 11:30: Sodium 141, Potassium 3.8, Chloride 108 H, Carbon Dioxide 28.0, Anion Gap 5, BUN 15, Creatinine 0.96, Estim Creat Clear Calc 99.28, Est GFR (MDRD) Af Amer 108, Est GFR (MDRD) Non-Af 89, BUN/Creatinine Ratio 15.5, Glucose 102, Calcium 8.4 L 02/28/21 05:10: WBC 10.1, RBC 5.14, Hgb 14.5, Hct 44.6, MCV 86.8, MCH 28.2, MCHC 32.5, RDW Std Deviation 42.2, RDW Coeff of Bianka 13.4, Plt Count 290, MPV 9.6, Immature Gran % (Auto) 0.500, Neut % (Auto) 84.5 H, Lymph % (Auto) 9.2 L, [place] % (Auto) 5.4, Eos % (Auto) 0.1, Baso % (Auto) 0.3, Absolute Neuts (auto) 8.5 H, Absolute Lymphs (auto) 0.93, Nucleated RBC % 0 02/28/21 05:10: Sodium 140, Potassium 3.6, Chloride 105, Carbon Dioxide 28.0, Anion Gap 7, BUN 14, Creatinine 0.91, Estim Creat Clear Calc 104.73, Est GFR (MDRD) Af Amer 115, Est GFR (MDRD) Non-Af 95, BUN/Creatinine Ratio 15.4, Glucose 116 H, Calcium 8.5, Total Bilirubin 1.10 H, AST 14 L, ALT 37, Alkaline Phosphatase 64, Total Protein 6.7, Albumin 3.4, Globulin 3.3, Albumin/Globulin Ratio 1.0 Physical Exam Const alert and oriented x3 General Appearance: cooperative HEENT normocephalic Neck supple Resp normal respiratory effort Effort and Inspection: able to speak in complete sentences GI GI Narrative: abdomen - soft obese and benign Assessment & Plan Assessment/Plan (1) Acute pseudo-obstruction of small intestine: PLAN: will plan to d/c NG tube and start on clear liquid diet will re-examine patient this afternoon - if tolerates above - will d/c to home later today
[2021-02-28 08:29] VITALS: BP 159/109; PULSE 84; RESP 18; TEMP 36.9; O2SAT 98
--- NOTE | 2021-02-28 10:45 | CASEMGMT ---
MARICARMEN LOUISE Assessment: Face to Face with pt for initial transition planning/care coordination assessment. RN DANI introduced self and role at [facility], pt voices understanding and consents to assessment. Pt is A/O x4 and answers all questions appropriately at this time. Pt sitting up in bed in no distress with at bedside. Care providers, pharmacy, and demographics verified/updated. Admitting Dx: Partial SBO PCP:Angélica Specialists: Yusuf, surgeon Lexi Pharmacy: [facility] Insurance: [place] Prescription Benefit: yes LW/HPOA: Pt denies having a LW/DPOA and denies need for info regarding AD. LNOK: Keanu Marinelli, Living Arrangements: Pt lives with and dtr in a two story house with two steps to enter. Pt reports he is I in ADL's and denies concerns at home. Transportation: Pt drives self and denies concerns with transportation. DME/HHC/SNF: Pt denies having DME in the home, hx of HHC or SNF stays. Pt states no concerns with going home at time of dc. Pt states no further concerns/needs. CM to follow. Advised pt to ask CM if any further question/concerns/needs arise, voices understanding. Pt Goal: Home Plan: Home
--- NOTE | 2021-02-28 10:58 | PCM.PN.HOSP ---
Subjective Subjective Patient did pass flatus overnight. No bowel movement yet. Did tolerate some clear liquids at breakfast. NG tube has been removed and patient is not having any abdominal pain nausea or vomiting. Possible discharge later today depending on oral tolerance. Objective Data Objective Data Vital Signs: Vital Signs Temp Pulse Resp BP Pulse Ox 98.4 F 84 18 159/109 H 98 02/28/21 08:29 02/28/21 08:29 02/28/21 08:29 02/28/21 08:29 02/28/21 08:29 Oxygen Flow Rate (L/min) 2 Oxygen Delivery Method Room Air Weight: 131.8 kg Body Mass Index (BMI) 41.6 Intake & Output: Intake and Output for Last 24 Hours 02/26/21 02/27/21 02/28/21 23:59 23:59 23:59 Intake Total 1010 / 1010 3873.75 / 3883.75 1321.67 / 1321.67 Output Total 1350 / 2000 1625 / 1625 Balance 1010 / 1010 2523.75 / 1883.75 -303.33 / -303.33 Lab / Micro Data Result Diagrams: 02/28/21 05:10 02/28/21 05:10 Labs: Laboratory Results - last 24 hr 02/27/21 11:30: Sodium 141, Potassium 3.8, Chloride 108 H, Carbon Dioxide 28.0, Anion Gap 5, BUN 15, Creatinine 0.96, Estim Creat Clear Calc 99.28, Est GFR (MDRD) Af Amer 108, Est GFR (MDRD) Non-Af 89, BUN/Creatinine Ratio 15.5, Glucose 102, Calcium 8.4 L 02/28/21 05:10: WBC 10.1, RBC 5.14, Hgb 14.5, Hct 44.6, MCV 86.8, MCH 28.2, MCHC 32.5, RDW Std Deviation 42.2, RDW Coeff of Bianka 13.4, Plt Count 290, MPV 9.6, Immature Gran % (Auto) 0.500, Neut % (Auto) 84.5 H, Lymph % (Auto) 9.2 L, [place] % (Auto) 5.4, Eos % (Auto) 0.1, Baso % (Auto) 0.3, Absolute Neuts (auto) 8.5 H, Absolute Lymphs (auto) 0.93, Nucleated RBC % 0 02/28/21 05:10: Sodium 140, Potassium 3.6, Chloride 105, Carbon Dioxide 28.0, Anion Gap 7, BUN 14, Creatinine 0.91, Estim Creat Clear Calc 104.73, Est GFR (MDRD) Af Amer 115, Est GFR (MDRD) Non-Af 95, BUN/Creatinine Ratio 15.4, Glucose 116 H, Calcium 8.5, Total Bilirubin 1.10 H, AST 14 L, ALT 37, Alkaline Phosphatase 64, Total Protein 6.7, Albumin 3.4, Globulin 3.3, Albumin/Globulin Ratio 1.0 Physical Exam Const alert, oriented x3 and no apparent distress Constitutional Narrative: Morbidly obese legs white male sitting up in bed, appears comfortable, nontoxic, NG tube removed Exam Limitations: no limitations Nutritional Appearance: morbidly obese HEENT head/scalp atraumatic and moist oral mucous membranes Head and Scalp: normocephalic Resp normal respiratory effort, no retractions, no use of accessory muscles and clear to auscultation bilaterally Auscultation: Negative for crackles, rales, rhonchi or wheezes Cardio regular rate, regular rhythm, S1 normal heart sound, S2 normal heart sound, no murmurs, no rub, no gallops, no clicks and no JVD GI normal to inspection, nondistended, normoactive bowel sounds, soft to palpation, non-tender and non-distended Extremity no clubbing, cyanosis or edema Peripheral Pulses: Yes pulses 2+ throughout Neuro oriented x3, moves all extremities and no focal motor deficits Sensorium / Orientation: awake and alert Speech: speech normal Assessment & Plan Assessment/Plan (1) Acute pseudo-obstruction of small intestine: (2) Hypertension: (3) HLD (hyperlipidemia): QUALIFIERS: Hyperlipidemia type: unspecified Qualified Code(s): E78.5 - Hyperlipidemia, unspecified PLAN: Acute pseudoobstruction of the small intestine -Decrease IV fluids to 50 cc/h with initiation of p.o. intake -IV Protonix per surgery -NGT removed this morning -Patient initiated on a clear liquid diet -General surgery is following and documents that they may consider repeat CT scan this afternoon Hypothyroidism -Restart Synthroid Hyperlipidemia -Patient is currently on not on a statin Hypertension -Restart home amlodipine -Continue as needed hydralazine GERD -IV PPI started per general surgery -Patient is on oral omeprazole at home Bipolar disorder -Patient is not on any chronic medication for this Vitamin D deficiency -Restart ergocalciferol at discharge Chronic back pain -Restart home medicines at discharge Morbid obesity -Recommend weight loss -Complicates overall treatment, prognosis, outcomes DVT prophylaxis -Start heparin 5000 units 3 times daily -SCDs CODE STATUS -Full code Okay for discharge from a medical standpoint await surgical input with regards to p.o. diet tolerance and discharge. Charges/Coding Visit Charges Inpatient E&M: 56520 Subs Hosp L2
[2021-02-28] MEDS: amLODIPine 10 MG Tablet 20 MG PO (12:51)
--- NOTE | 2021-02-28 13:56 | PCM.DC.BLA ---
Discharge Summary Date of Admission: 02/26/21 Date of Discharge: 02/28/21 Summary: admitted for partial small bowel obstruction resolved with NG tube decompression and IV fluids Meaningful Use Info Meaningful Use Diagnoses (Choose all that apply): None applicable Discharge Plan Admission Admit Date/Time: 02/26/21 20:40 Primary Reason for Your Visit: partial SBO of unknown etiology Attending Provider: Carmen Avila Primary Care Provider: Ellen Lindsay Consulting Providers: Carmen Avila Instructions Additional Instructions / Restrictions: drink plenty of fluids and stay on a liquid type diet - chicken noodle soups and like foods are OK avoid carbonated beverages, advance diet over a few days to a regular diet May return to work on Sunday03/02/2021 Patient to follow up with me in about 2 weeks - call to schedule for an appointment at patient's convenience Discharge Orders/Prescriptions Prescriptions: No Action omeprazole 10 mg capsule,delayed release(DR/EC) 20 mg PO DAILY RF: 0 levothyroxine 75 MCG tablet 75 mcg PO DAILY RF: 0 diclofenac sodium 50 MG tablet 100 mg PO DAILY RF: 0 ergocalciferol (vitamin D2) 50,000 UNIT capsule 50,000 unit PO MOTH RF: 0 lorazepam 1 MG tablet 1 tab PO PRN PRN (Reason: Anxiety) RF: 0 amlodipine 5 mg tablet 20 mg PO DAILY RF: 0 Referrals / Follow Up: Ellen Lindsay DO [Primary Care Provider] - Disposition Discharge Orders: Discharge Patient (Routine); Ordered 02/28/21 Ordered By: Dr. Fatmata Goldberg
[2021-02-28 14:51] VITALS: BP 166/96; PULSE 84; RESP 18; TEMP 37.2; O2SAT 98
== END 2021-02-28 14:58 | disposition home or self-care (01) | DRG 389 ==
LOC: ED 20:41 → MS3 02-27 06:45
PROVIDERS: Admitting Provider Surgery; Emergency Provider Emergency Medicine; PCP Family Medicine; Visit Provider Internal Medicine
DX: K56.600 Partial intestinal obstruction, unspecified as to cause (principal); Z68.41 Body mass index [BMI] 40.0-44.9, adult; K58.0 Irritable bowel syndrome with diarrhea; I10 Essential (primary) hypertension; E78.5 Hyperlipidemia, unspecified; E03.9 Hypothyroidism, unspecified; K21.9 Gastro-esophageal reflux disease without esophagitis; F31.9 Bipolar disorder, unspecified; M54.9 Dorsalgia, unspecified; G89.29 Other chronic pain; E55.9 Vitamin D deficiency, unspecified; E66.01 Morbid (severe) obesity due to excess calories; Z79.890 Hormone replacement therapy; Z79.899 Other long term (current) drug therapy; Z86.718 Personal history of other venous thrombosis and embolism; Z86.16 Personal history of COVID-19
CPT/HCPCS: 36415; 74018; 74177; 80048; 80053; 80076; 83690; 85025; 97802; 99285; J7030; J7120; Q9967; A4216; J2405; J3490

== ENCOUNTER → 2021-03-23 07:47 | Outpatient (CLI) | payer BC, SELFPAY ==
--- NOTE | 2021-03-23 08:00 | RAD_ITS ---
CLINICAL INDICATION: Weight loss, loss of appetite and upper abdominal pain EXAM: Biphasic upper gastrointestinal series. TECHNIQUE: Standard double phase upper GI with small bowel follow-through performed with effervescent capsules and barium. Total fluoroscopy time: 4:28 minutes/seconds. Number of images: 104. FINDINGS: Normal esophageal motility was observed. The esophagus, stomach, and proximal small bowel have a normal appearance. A double contrast upper gastrointestinal series was also performed. Examination of the esophagus, stomach and duodenum reveals normal mucosal features in each segment. Small bowel follow-through evaluation demonstrates unremarkable facial small bowel loops, unremarkable mucosal pattern is no evidence of obstruction is seen, no evidence of endoluminal masses is visualized. No evidence of bowel wall thickening was seen. The terminal ileum is visualized and is unremarkable. The visualized ascending and transverse colons are unremarkable. RAD/Upper GI/w Small Bowel IMPRESSION: Unremarkable upper GI and small bowel follow-through. No evidence of gastroesophageal reflux. Electronically Signed: Jovan Horowitz MD at 11:01 EST Tel , Service support ,
== END ==
PROVIDERS: PCP Family Medicine; Visit Provider Surgery
DX: Z87.19 Personal history of other diseases of the digestive system (principal)
CPT/HCPCS: 74246; 74248

== ENCOUNTER 2021-05-31 12:49 | Day surgery (SDC) | payer BC, SELFPAY ==
[2021-05-31 13:15] VITALS: BP 153/102; PULSE 65; RESP 18; TEMP 36.1; O2SAT 99; BMI 41.3
[2021-05-31] MEDS: Lactated Ringers 1,000 ML 15 ML IV (13:20)
--- NOTE | 2021-05-31 13:41 | PCM.HP.BLA ---
History and Physical Date of Admission: 05/31/21 45 M who presents to the office today for Referred by PCP for evaluation of abdominal pain, suspect recurrent partial small bowel obstruction. No history of bowel surgery, however concerns regarding IBD. Presented to [facility] ED 12.07.14 with pseudoblockage found. Looking back he recalls similar symptoms that have happening multiple times since . He was prescribed a motility medication following hospitalization that has been somewhat helpful. Feels that Monster energy drinks cause GI upset. Abdomen pain with this is located in the lower abdomen with dull pains that become sharp at times and last about a week with a history of emesis that includes undigested foods. Stool is normally soft or runny and normally has 3-4 BM a day with some urgency but also triggered by PO intake. Cramping pain noted in the lower part of his abdomen that is not the same as with pseudoblockage. Some foods have been found to be triggers. Reports history of black stool over a year prior and he underwent EGD and colonoscopy. Prior to this he discussed belching that was like stool with his PCP who told him that his bowels were working in reverse, this resolved spontaneously. Started probiotic recently and reports this has helped with cramping pain. COVID diagnosis Last EGD with Dr. Dobbins and colonoscopy [address] Samano. Additional medical history includes hypothyroidism, hyperlipidemia, hypocalcemia, anxiety, insomnia, hypersomnia, HTN, IBS, sleep apnea, snoring, hypogonadism. Surgical history includes ACL repair, knee arthroscopy, back surgery, bowel obstruction. ROS Const Constitutional: No anorexia, fatigue, fever(s), weight change or sleep problems Eyes Eyes: No change in vision ENT ENT: No abnormal hearing, difficulty swallowing, mouth lesions, tongue swelling or throat swelling Resp Respiratory: No cough or shortness of breath Cardio Cardiology: No chest pain at rest, chest pain with exertion, shortness of breath or dyspnea on exertion Gastro GI: No difficulty swallowing Genitourinary Male: No difficulty urinating or burning urination Musc Musculoskeletal: No joint pain, joint swelling, muscle weakness or decreased muscle mass Skin Skin: No hair loss in leg, yellowing of the eye, itchy eyes, rash, skin ulcer or skin swelling Neuro Neurology: No abnormal hearing, abnormal movements, confusion, unsteady gait/balance or memory loss Psych Psychiatric: No anxiety, No confusion and No memory loss Endo Endocrine: No fatigue or weight change Aller/Imm Allergy/Immunologic: No itchy eyes, throat swelling or tongue swelling Ken/Lymp Hematologic/Lymphatic: No easy bleeding, easy bruising or enlarged lymph nodes Exam Const General: cooperative and comfortable Nutritional Appearance: average body habitus and well nourished HENDC Head: normal to inspection Ears: hearing grossly normal bilaterally Nose: external nose normal Face and sinus: normal facial exam Mouth: oral mucosae normal Throat: posterior oropharynx normal Eyes General: appearance normal, both eyes and all related structures Neck Neck: normal visual inspection Chest Chest palpation & inspection: normal inspection of the chest and normal palpation of entire chest wall Resp Effort & Inspection: normal respiratory effort Auscultation: Bilateral: Clear to Auscultation Cardio Palpation: normal PMI Rate: regular rate Rhythm: regular rhythm GI Inspection: normal to inspection Auscultation: normal bowel sounds Percussion: normal to percussion Palpation: no hepatosplenomegaly Skin General: no rashes or lesions noted Neuro General: patient alert Extrem General: normal to inspection Psych Affect: normal affect Quality Reporting Tobacco Screening ([facility] 138) Smoking Status: Never smoker Assessment and Plan Assessment and Plan (1) Acute pseudo-obstruction of small intestine: Status: Acute Plan - Dr. Velez Friend, DO: Presentation of diarrhea with crampy abdominal pain and CT findings of an acute small bowel obstruction that resolved with decompression is highly suspicious for inflammatory bowel disease. We talked about doing a capsule endoscopy to review the small bowel however I am very reluctant to do a capsule endoscopy in this patient secondary to the fact that it can get stuck in the small bowel up and he would have to get a surgical procedure to get the cath removed. Therefore we will perform colonoscopy with evaluation of the small bowel. He will also get biochemical analysis and inflammatory markers for inflammatory bowel disease. I have re-examined the patient. There are no clinical changes since date of exam.
--- NOTE | 2021-05-31 14:00 | COLBX_PTH ---
PATIENT: FABIÁN MOFFETT LOC: EN U#:[id number] AGE/SX: 45/M ROOM: RE05/31/[address]: Dr. Agustni Ruvalcaba DO : 1975 BED: DIS: 05/31/2021 SPEC #: [id number] RECD: 05/31/21 16:42 STATUS: LI HUI #: [id number] YARITZA: 05/31/21 14:[address]: Agustin Ruvalcaba DEPT: SURGICAL PATHOLOGY RECD BY: Linda Marroquin ENTERED: 06/01/21 15:11 SP TYPE: COLON BX OTHR DR: Dr. Ellen Lindsay DO Tissues: A - Ileum, NOS B - COLON BIOPSY Procedures: Surgery Specimen Level IV HEADER OPERATION: Colonoscopy with biopsies (MAC) PRE-OP DIAGNOSIS: Acute pseudo-obstruction of small intestine TISSUE SUBMITTED: A ? Terminal ileum biopsy, B ? Random colonic biopsy MICROSCOPIC DIAGNOSIS A. Terminal ileum, biopsy: Fragments of small intestinal mucosa with focal mild nonspecific acute and chronic inflammation. B. Colon, random biopsy: Fragments of colonic mucosa, no pathologic diagnosis. BRII:nikki 06/02/2021 MICROSCOPIC DESCRIPTION Slides are reviewed. GROSS DESCRIPTION A - Received in fixative is one container labeled with the patient's name and designated biopsy terminal ileum. The specimen consists of multiple irregular fragments of light kimble soft tissue that in aggregate measure 1.5 x 0.5 x 0.1 cm. The specimen is totally submitted in one cassette. B - Received in fixative is one container labeled with the patient's name and designated random colonic biopsy. The specimen consists of multiple irregular fragments of light kimble soft tissue that in aggregate measure 2 x 1 x 0.1 cm. The specimen is totally submitted in one cassette. / BRII:nikki 06/01/2021 TC:3 CPT: 92913 x2
[2021-05-31 14:45] VITALS: BP 123/68; BP 153/102; PULSE 70; RESP 16; TEMP 36.2; O2SAT 95
[2021-05-31 14:50] VITALS: BP 117/78; BP 153/102; PULSE 63; RESP 16; O2SAT 96
--- NOTE | 2021-05-31 14:52 | OP.COLON_ITS ---
Patient Name: Khalif Marinelli Procedure Date: 05/31/2021 2:07 PM Date of : 1975 Age: 45 Procedure: Colonoscopy Indications: Chronic diarrhea Providers: Agustin Ruvalcaba DO Referring MD: Ellen Lindsay Medicines: See the Anesthesia note for documentation of the administered medications Patient Profile: This is a 45 year old male. Refer to note in patient chart for documentation of history and physical. Last Colonoscopy: none. The patient's first colonoscopy is today. Last Colonoscopy: none. The patient's first colonoscopy is today. Complications: No immediate complications. Procedure: Pre-Anesthesia Assessment: - Prior to the procedure, a History and Physical was performed, and patient medications and allergies were reviewed. The patient is competent. The risks and benefits of the procedure and the sedation options and risks were discussed with the patient. All questions were answered and informed consent was obtained. Patient identification and proposed procedure were verified by the physician. Mental Status Examination: normal. Respiratory Examination: clear to auscultation. Prophylactic Antibiotics: The patient does not require prophylactic antibiotics. Prior Anticoagulants: The patient has taken no previous anticoagulant or antiplatelet agents. ASA Grade Assessment: II - A patient with mild systemic disease. After reviewing the risks and benefits, the patient was deemed in satisfactory condition to undergo the procedure. The anesthesia plan was to use moderate sedation / analgesia (conscious sedation). Immediately prior to administration of medications, the patient was re-assessed for adequacy to receive sedatives. The heart rate, respiratory rate, oxygen saturations, blood pressure, adequacy of pulmonary ventilation, and response to care were monitored throughout the procedure. The physical status of the patient was re-assessed after the procedure. After I obtained informed consent, the scope was passed under direct vision. Throughout the procedure, the patient's blood pressure, pulse, and oxygen saturations were monitored continuously. The pediatric colonoscope was introduced through the anus and advanced to the terminal ileum. The colonoscopy was performed without difficulty. The patient tolerated the procedure well. The quality of the bowel preparation was good. Moderate Sedation: Moderate (conscious) sedation was administered by the endoscopy nurse and supervised by the endoscopist. The following parameters were monitored: oxygen saturation, heart rate, blood pressure, and response to care. Total physician intraservice time was 15 minutes. Scope In: 2:21:37 PM Scope Withdrawal Time 0 hours 12 minutes 22 seconds Scope Out: 2:38:31 PM Total Procedure Duration Time 0 hours 16 minutes 54 seconds Findings: The perianal and digital rectal examinations were normal. The perianal and digital rectal examinations were normal. An area of mildly congested mucosa was found in the sigmoid colon, in the descending colon, at the splenic flexure, in the transverse colon and at the hepatic flexure. Biopsies were taken with a cold forceps for histology. Verification of patient identification for the specimen was done. Estimated blood loss was minimal. A scattered area of the terminal ileum was congested. Biopsies were taken with a cold forceps for histology. Verification of patient identification for the specimen was done. Estimated blood loss was minimal. Impression: - Congested mucosa in the sigmoid colon. Biopsied. - Congested mucosa in the terminal ileum. Biopsied. Recommendation: - Discharge patient to home. - Resume previous diet. - Continue present medications. - Await pathology results. - Await pathology results. - Repeat colonoscopy is recommended for surveillance. The colonoscopy date will be determined after pathology results from today's exam become available for review. Procedure Code(s): --- Professional --- 55030, Colonoscopy, flexible; with biopsy, single or multiple 30790, 59, Moderate sedation services provided by the same physician or other qualified health critical care technician performing the diagnostic or therapeutic service that the sedation supports, requiring the presence of an independent trained observer to assist in the monitoring of the patient's level of consciousness and physiological status; initial 15 minutes of intraservice time, patient age 5 years or older CPT copyright 2017 [employer]. All rights reserved. The codes documented in this report are preliminary and upon invoice clerk review may be revised to meet current compliance requirements. Agustin Ruvalcaba DO 05/31/2021 2:51:35 PM This report has been signed electronically. Number of Addenda: 1 Note Initiated On: 05/31/2021 2:07 PM Addendum Number: 1 Addendum Date: 12/21/2021 6:35:02 AM MAC was used as sedation for this procedure. Agustin Ruvalcaba DO 12/21/2021 6:35:06 AM This report has been signed electronically.
--- NOTE | 2021-05-31 14:53 | OP.CCLET_ITS ---
12/21/2021 Ellen Lindsay [address] [place] [address] Re : Colonoscopy procedure for Khalif Marinelli Dear Dr. Lindsay This procedure was performed on Monday, May 31, 2021. My impressions and recommendations are as follows: Impressions : - Congested mucosa in the sigmoid colon. Biopsied. - Congested mucosa in the terminal ileum. Biopsied. Recommendations : - Discharge patient to home. - Resume previous diet. - Continue present medications. - Await pathology results. - Await pathology results. - Repeat colonoscopy is recommended for surveillance. The colonoscopy date will be determined after pathology results from today's exam become available for review. My findings are described in the full procedure note, which is enclosed. If I can be of further assistance, please feel free to contact me at . Sincerely, Agustin Ruvalcaba, 05/31/2021 2:51:35 PM This report has been signed electronically.
[2021-05-31 14:55] VITALS: BP 125/79; BP 153/102; PULSE 61; RESP 16; O2SAT 96
[2021-05-31 15:04] VITALS: BP 131/86; BP 153/102; PULSE 72; RESP 16; TEMP 36.4; O2SAT 97
[2021-05-31 15:20] VITALS: BP 153/102
== END 2021-05-31 23:59 | disposition home or self-care (01) ==
LOC: EN 12:52 → AC 12:53
PROVIDERS: PCP Family Medicine; Referring Provider Family Medicine; Visit Provider Internal Medicine Gastroenterology
PROC: 0DJD8ZZ Inspection of Lower Intestinal Tract, Via Natural or Artificial Opening Endoscopic (ICD-10-PCS; CPT 45378; principal; 2021-05-31 13:55)
DX: K52.9 Noninfective gastroenteritis and colitis, unspecified (principal); F31.9 Bipolar disorder, unspecified; Z68.41 Body mass index [BMI] 40.0-44.9, adult; Z20.822 Contact with and (suspected) exposure to COVID-19; K63.89 Other specified diseases of intestine; E66.9 Obesity, unspecified; I10 Essential (primary) hypertension; E78.5 Hyperlipidemia, unspecified; E03.9 Hypothyroidism, unspecified; M19.90 Unspecified osteoarthritis, unspecified site; G47.30 Sleep apnea, unspecified; Z79.899 Other long term (current) drug therapy; Z86.718 Personal history of other venous thrombosis and embolism
CPT/HCPCS: 45380; 87426; 88305; C9803; J7120; J2405

== ENCOUNTER 2021-07-06 14:56 | Outpatient (CLI) | payer BC, SELFPAY ==
[2021-07-06 18:02] LABS: Erythrocyte Sedimentation Rate 3 mm/hr (0-20)
[2021-07-06 18:12] LABS: CRP, High Sensitivity Cardiac 2.67 mg/L
[2021-07-06 18:16] LABS: Homocysteine 4.9 umol/L (3.2-10.7)
== END 2021-07-06 23:59 | disposition home or self-care (01) ==
PROVIDERS: PCP Family Medicine; Referring Provider Internal Medicine Gastroenterology; Visit Provider Internal Medicine Gastroenterology
DX: K59.89 Other specified functional intestinal disorders (principal)
CPT/HCPCS: 36415; 83090; 85652; 86141

== ENCOUNTER 2021-07-08 15:51 | Outpatient (CLI) | payer BC, SELFPAY ==
[2021-07-12 17:39] LABS: Calprotectin, Stool 61 ug/g (0-120)
== END 2021-07-08 23:59 | disposition home or self-care (01) ==
PROVIDERS: PCP Family Medicine; Referring Provider Internal Medicine Gastroenterology; Visit Provider Internal Medicine Gastroenterology
DX: K59.89 Other specified functional intestinal disorders (principal)
CPT/HCPCS: 83993

== ENCOUNTER → 2021-08-24 | Outpatient (CLI) | payer BC, SELFPAY ==
--- NOTE | 2021-08-24 15:10 | RAD_ITS ---
EXAM: XR ABDOMEN, 1 VIEW CLINICAL INDICATION: patency capsule TECHNIQUE: Frontal supine view of the abdomen/pelvis. This report was created using oboxo report generation technology. COMPARISON: None. FINDINGS: LOWER THORAX: No acute pathology. GASTROINTESTINAL TRACT: Unremarkable. Non-obstructive. No bowel or stomach distention. ORGANS: Unremarkable as visualized. No organomegaly. No abnormal calcifications. BONES/JOINTS: Unremarkable. SOFT TISSUES: No acute pathology. OTHER: There is a small dense structure measuring about 1.5 cm overlying the L5 vertebra on the abdominal images. I do not identify with certainty on the image centered over the pelvis. RAD/Abdomen Single View IMPRESSION: There is a small dense structure measuring about 1.5 cm overlying the L5 vertebra on the abdominal images. I do not identify with certainty on the image centered over the pelvis. Electronically Signed: Akhil Case MD at 7:54 EDT ,
== END | disposition home or self-care (01) ==
PROVIDERS: PCP Family Medicine; Referring Provider Internal Medicine Gastroenterology; Visit Provider Internal Medicine Gastroenterology
DX: K59.89 Other specified functional intestinal disorders (principal)
CPT/HCPCS: 74018

== ENCOUNTER → 2021-12-10 | Outpatient (CLI) | payer BC, SELFPAY ==
[2021-12-10 08:33] LABS: BUN 17 mg/dL (7-18); Creatinine, Serum 1.04 mg/dL (0.70-1.30); EST Glomerular Filtration Rate 81 mL/min (>60); Est Glom Filt Rate - Afr Amer 98 mL/min (>60)
== END | disposition home or self-care (01) ==
LOC: LAB 07:27
PROVIDERS: PCP Family Medicine; Referring Provider Nurse Practitioner Family; Visit Provider Nurse Practitioner Family
DX: G89.29 Other chronic pain (principal); Z79.1 Long term (current) use of non-steroidal anti-inflammatories (NSAID)
CPT/HCPCS: 36415; 82565; 84520

== ENCOUNTER → 2021-12-14 | Outpatient (CLI) | payer BC, SELFPAY ==
[2021-12-14 18:17] LABS: Color, Urine Yellow (Yellow); Glucose, Dipstick Normal (Normal); Ketone-Dipstick Negative (Negative); Leukocyte Esterase-Dipstick Negative /ul (Negative); Nitrite-Dipstick Negative (Negative); Occult Blood-Urine Negative /ul (Negative); Protein-Dipstick Negative (Negative); Urine Bilirubin Dipstick Negative (Negative); Urine Clarity Cloudy (Clear); Urine Urobilinogen Normal (Normal)
== END | disposition home or self-care (01) ==
PROVIDERS: PCP Family Medicine; Visit Provider Family Medicine
DX: R35.89 Other polyuria (principal)
CPT/HCPCS: 81002; 87086

== ENCOUNTER → 2022-03-31 | Outpatient (CLI) | payer BC, SELFPAY ==
[2022-03-31 18:01] LABS: Cholesterol 278 mg/dL (200); High Density Lipoprotein 61 mg/dL; Triglycerides 57 mg/dL; Very Low Density Lipoprotein 11 mg/dL (5-40)
== END | disposition home or self-care (01) ==
LOC: MTLAB 15:22 → BFHLAB 15:24
PROVIDERS: PCP Family Medicine; Referring Provider Family Medicine; Visit Provider Family Medicine
DX: E78.5 Hyperlipidemia, unspecified (principal)
CPT/HCPCS: 36415; 80061

== ENCOUNTER 2022-05-13 21:49 | Inpatient (IN) | payer BC, SELFPAY ==
[2022-05-13 21:50] VITALS: BP 160/118; PULSE 83; RESP 16; TEMP 36.6; O2SAT 97; BMI 39.2
[2022-05-13 22:11] VITALS: BP 177/114; PULSE 95; RESP 18; O2SAT 96
--- NOTE | 2022-05-13 23:08 | EX.ED.DYSGE1 ---
HPI History of Present Illness Chief Complaint: Abd Pain Detail of Chief Complaint: Bowel obstruction Informant: patient Narrative Narrative: Patient presents secondary to what he believes is another bowel obstruction. He has been admitted in the past for small bowel obstructions. In review of GI notes it appears he has pseudo bowel obstructions. He was seen by Dr. Ruvalcaba last October and because he been doing well was to follow-up with on a as needed basis. Patient states today he started feeling distended and crampy. He noted he was not passing gas or stool. He drank mag citrate around lunchtime today but has not had any results. He had 2 episodes of vomiting today. [facility] Medical History Anxiety Arthritis Atypical chest pain Back problem Bipolar disorder Black stools Bowel obstruction Chronic pain H/O blood clots Heartburn HLD (hyperlipidemia) Hypertension Hypothyroidism Non-smoker Obesity Sleep apnea Wears glasses Home Medications diclofenac sodium 50 mg tablet,delayed release 75 mg PO DAILY 04/11/15 [History Last Taken 04/10/15 08:00] lorazepam 1 mg tablet 1 tab PO PRN PRN Anxiety 11/07/17 [History Last Taken Unknown] amlodipine 5 mg tablet 20 mg PO DAILY 05/07/19 [History Last Taken Unknown] quetiapine 25 mg tablet (Seroquel) 50 mg PO QHS 05/26/21 [History Last Taken Unknown] losartan 50 mg tablet 50 mg PO DAILY 05/14/22 [History Last Taken Unknown] quetiapine 25 mg tablet (Seroquel) 25 mg PO DAILY 05/14/22 [History Last Taken Unknown] Allergy/AdvReac Type Severity Reaction Status Date / Time Iodinated Contrast Media Allergy Itching Verified 05/13/22 22:10 propoxyphene napsylate Allergy Other Verified 05/13/22 22:10 [From Darvocet-N 100] Family History Father Heart disease Hypertension Hyperlipidemia Seizures Depression Mother Heart disease Hyperlipidemia Hypertension Anxiety Arthritis defect Depression Myocardial infarction Grandfather Heart disease Myocardial infarction Unknown Alcoholism Surgical History History of back surgery History of knee surgery Social History Smoking Status: Never smoker alcohol intake: current substance use type: does not use what type of physical activity do you participate in: other frequency: 5-6 times per week ROS ROS ED Constitutional Constitutional ED: Reports chills; Denies fever(s) Eyes Eyes: Denies change in vision or discharge from eye(s) ENT ENT ED: Denies discharge from eye(s), rhinorrhea or sore throat Cardiovascular Cardiovascular: Denies chest pain or palpitations Respiratory/Chest Respiratory/Chest: Denies cough or dyspnea Gastrointestinal Gastrointestinal: Reports abdominal pain, constipation, nausea and vomiting; Denies diarrhea Genitourinary Genitourinary ED: Denies dysuria Musculoskeletal Musculoskeletal: Denies back pain or extremity pain Integumentary Denies Abrasions or rash Neurologic Neurologic: Denies headache(s) or weakness Psychiatric Psychiatric: Denies anxiety or depression Allergic/Immunologic Allergic/Immunologic ED: Denies lip swelling or urticaria EXAM Physical Exam Const Vital Signs: 05/13/22 21:50 05/13/22 22:11 05/13/22 23:27 Temperature 98 F Temperature Source Temporal Pulse Rate 83 95 69 Respiratory Rate 16 18 17 Blood Pressure 160/118 H 177/114 H 171/97 H Blood Pressure Mean 132 135 121 Pulse Ox 97 96 97 Oxygen Delivery Method Room Air Room Air Room Air 05/14/22 00:20 Temperature Temperature Source Pulse Rate 75 Respiratory Rate 18 Blood Pressure 153/92 H Blood Pressure Mean 112 Pulse Ox 96 Oxygen Delivery Method Room Air Positive well nourished and well developed General Appearance ED: well developed HEENT Reports normocephalic and head/scalp atraumatic Eyes PERRL and EOMs intact bilaterally Neck supple Chest Wall inspection of chest normal and palpation of chest normal Resp normal respiratory effort and clear to auscultation bilaterally Cardio regular rate and regular rhythm GI GI Narrative: No bowel sounds noted on auscultation. Minimal tenderness to the mid right abdomen. No palpable masses. No guarding or rebound. Palpation: soft Extremity normal to inspection Neuro oriented x3 and no sensory deficits noted Sensorium / Orientation: alert Motor Exam: strength 5/5 throughout Psych mental status grossly normal Skin no rashes or lesions noted MDM MDM MDM Narrative Medical decision making narrative: Patient was given morphine and Zofran along with IV fluids. Lab work obtained to evaluate for leukocytosis, anemia, electrolyte derangement. CT flank obtained given concern for bowel obstruction. Lab Data Attestation: I reviewed the patient's lab results. Labs: Laboratory Results - last 24 hr 05/13/22 05/13/22 23:05 23:05 WBC 9.9 RBC 5.64 Hgb 17.3 H Hct 49.3 MCV 87.4 MCH 30.7 MCHC 35.1 RDW Std Deviation 41.1 RDW Coeff of Bianka 13.0 Plt Count 272 MPV 10.1 Immature Gran % (Auto) 0.300 Neut % (Auto) 85.4 H Lymph % (Auto) 9.5 L [place] % (Auto) 4.3 Eos % (Auto) 0.3 Baso % (Auto) 0.2 Absolute Neuts (auto) 8.5 H Absolute Lymphs (auto) 0.94 Nucleated RBC % 0 Sodium 142 Potassium 3.8 Chloride 108 H Carbon Dioxide 26.0 Anion Gap 8 BUN 17 Creatinine 1.00 Estim Creat Clear Calc 94.29 Est GFR (MDRD) Af Amer 103 Est GFR (MDRD) Non-Af 85 BUN/Creatinine Ratio 17.0 Glucose 129 H Calcium 9.4 Total Bilirubin 1.30 H Direct Bilirubin 0.19 AST 12 L ALT 30 Alkaline Phosphatase 77 Total Protein 7.6 Albumin 4.0 Globulin 3.6 Lipase 130 Radiography Diagnostic Testing: Clinical Impression(s) from Imaging Studies Abdomen/Pelvis CT 05/13/22 23:39 IMPRESSION: Findings are suspicious for recurrent small bowel obstruction. Recommend correlation with history and any history of inflammatory bowel disease. Could consider possible Crohn''s disease. Potentially Crohn''s disease could have this appearance. Degenerative change of the lumbar spine. No appendicitis. Electronically Signed: Marcy Emmanuel MD at 1:06 EST , ADDENDUM: 05/14/22 0111 IMPRESSION: Findings are suspicious for recurrent small bowel obstruction. Recommend correlation with history and any history of inflammatory bowel disease. Could consider possible Crohn''s disease. Potentially Crohn''s disease could have this appearance. Degenerative change of the lumbar spine. No appendicitis. N.B. : The above Results were Read Back by Marcy Emmanuel MD to Char Mei , AA, and understanding confirmed on 05/14/2022 01:08:23 (ET). Electronically Signed: Marcy Emmanuel MD at 1:06 EST , Treatment and Re-Evaluation Narrative: CBC reveals normal white count. Hemoglobin is concentrated at 17.3. Chemistry studies are largely unremarkable. Glucose is 129. LFTs and lipase are normal. CT scan of the abdomen pelvis reveals recurrent small bowel obstruction. When I spoke with the radiologist she states the CT image looks almost identical to to the one from February 2021. Test results are discussed with patient and at bedside. NG tube will be placed. I will speak with surgery and medicine. Discharge Plan Triage Chief Complaint: Abd Pain ED Provider: Clau Hernandez Dx/Rx/DC Orders Clinical Impression: Small bowel obstruction Prescriptions: No Action diclofenac sodium 50 MG tablet 75 mg PO DAILY Label Comments: pain lorazepam 1 MG tablet 1 tab PO PRN PRN (Reason: Anxiety) Label Comments: amlodipine 5 mg tablet 20 mg PO DAILY Label Comments: quetiapine [Seroquel] 25 mg tablet 50 mg PO QHS Label Comments: TAKE 1 TABLET BY MOUTH ONCE DAILY AT BEDTIME losartan 50 mg tablet 50 mg PO DAILY Label Comments: TAKE 1 TABLET BY MOUTH ONCE DAILY quetiapine [Seroquel] 25 mg Tablet 25 mg PO DAILY Primary Care Provider: Ellen Lindsay Referrals: Ellen Lindsay DO [Primary Care Provider] - Disposition Disposition: Acute Care Hospital [facility]
[2022-05-13] MEDS: Ondansetron 4 MG/2 ML Vial IV (23:18)
[2022-05-13] MEDS: Morphine 4 MG/ML Syringe IV (23:23)
[2022-05-13 23:24] LABS: Absolute Lymphocyte Count 0.94 X10^3/uL (0.83-4.51); Absolute Neutrophil Count 8.5 X10^3/uL (2.0-7.7); Basophil# 0.02 X10^3/uL; Basophil% 0.2 % (0-1); Eosinophil# 0.03 X10^3/uL; Eosinophils% 0.3 % (0-5); Hematocrit 49.3 % (40-54); Hemoglobin 17.3 g/dL (13.0-16.5); Lymphocyte # 0.94 X10^3/ul (0.83-4.51); Lymphocyte % 9.5 % (19-41); Mean Corp Hgb Conc 35.1 g/dL (32-36); Mean Corpuscular Hgb 30.7 pg (27.0-32.0); Mean Corpuscular Volume 87.4 fL (80-94); Mean Platelet Vol. 10.1 fl (6.2-12.0); Monocyte# 0.43 X10^3/uL; Monocyte% 4.3 % (0-10); NRBC Flagged by Analyzer 0 % (0-5); Neutrophil # 8.47 X10^3/uL (2.7-7.7); Neutrophil % 85.4 % (47-70); Platelet Count 272 K/mm3 (150-450); RBC Distribution Width SD 41.1 fl (35.1-43.9); Red Blood Count 5.64 M/mm3 (4.6-6.2); White Blood Count 9.9 K/mm3 (4.4-11.0)
[2022-05-13 23:27] VITALS: BP 171/97; PULSE 69; RESP 17; O2SAT 97
--- NOTE | 2022-05-13 23:39 | CT_ITS ---
We are attempting to reach an attending provider to discuss findings. An addendum with communication details will be sent when the communication is complete. STUDY: CT ABDOMEN AND PELVIS WITHOUT CONTRAST REASON FOR EXAM: Male, 46 years old. Abd pain RADIATION DOSAGE (If Supplied By Facility): CTDIvol = ( 20.44 ) mGy, DLP = ( 1118.53 ) mGycm TECHNIQUE: Transaxial images were obtained from the dome of the diaphragm to the symphysis pubis without oral contrast, and without intravenous contrast. Sagittal and coronal images were reconstructed. Individualized dose optimization techniques were used for this CT. COMPARISON: February 26, 2021 CT scan abdomen and pelvis FINDINGS: The visualized lung bases are unremarkable. The visualized portions of the heart are within normal limits. Normal liver. Normal gallbladder and extrahepatic biliary system. Normal spleen. Normal pancreas. Normal bilateral adrenal glands. Normal right kidney. Normal left kidney. There is a fluid distended appearance of the stomach. There are distended loops of small bowel within the midabdomen measuring up to 3.5 to 4 cm. There is a decompressed appearance of the distal small bowel. There is visualized adjacent mesenteric edema. This appears recurrent when compared to the prior study there is slightly greater edema and wall thickening when compared to prior study. There is a mild amount of stool within the colon. There is a greater caliber of the small bowel than the large bowel. The appendix is visualized and appears normal. There is trace calcification of the infrarenal aorta. Normal inferior vena cava. There are a few subcentimeter mesenteric lymph nodes. There is mesenteric edema. Normal urinary bladder. There are prostatic calcifications. There are bilateral surgical clips in the scrotal region compatible with history of vasectomy. Normal abdominal wall. There are diffuse degenerative changes of the visualized lumbar spine. There is multilevel degenerative change. The level of L2-L3 there is a broad disc bulge facet arthropathy mild neural foramina narrowing minimal central stenosis. At the level of L3-L4 there is a broad disc bulge facet arthropathy moderate neural foramina narrowing mild central stenosis. At L4-L5 there is disc space narrowing vacuum phenomenon and broad disc osteophyte severe left neural foraminal narrowing mild central stenosis. There is a broad disc protrusion at the level of L5-S1 with moderate neural foramina narrowing minimal central stenosis. These findings are relatively similar to the prior study. CT/Abdomen/Pelvis without Cont IMPRESSION: Findings are suspicious for recurrent small bowel obstruction. Recommend correlation with history and any history of inflammatory bowel disease. Could consider possible Crohn''s disease. Potentially Crohn''s disease could have this appearance. Degenerative change of the lumbar spine. No appendicitis. Electronically Signed: Marcy Emmanuel MD at 1:06 EST ,
[2022-05-13 23:40] LABS: AST(SGOT) 12 U/L (15-37); Alanine Aminotransfer ALT/SGPT 30 U/L (16-61); Alkaline Phosphatase 77 U/L (45-117); Anion Gap 8 (5-15); BUN 17 mg/dL (7-18); Bilirubin, Direct 0.19 mg/dL (0.00-0.30); Calcium,Total 9.4 mg/dL (8.5-10.1); Chloride 108 mmol/L (98-107); EST Glomerular Filtration Rate 85 mL/min (>60); Est Glom Filt Rate - Afr Amer 103 mL/min (>60); Estimated Creatinine Clearance 94.29 ml/min; Globulin 3.6 g/dL (2.2-4.2); Glucose 129 mg/dL (74-106); Lipase 130 U/L (73-393); Potassium 3.8 mmol/L (3.5-5.1); Protein, Total 7.6 g/dL (6.4-8.2); Sodium Level 142 mmol/L (136-145)
[2022-05-14] VITALS (14 sets, daily range): BP systolic 138–201; BP diastolic 85–116; PULSE 60–95; RESP 16–18; TEMP 36.6–36.8; O2SAT 95–99; BMI 38.8
[2022-05-14] MEDS: 0.9% Normal Saline 1,000 ML 150 ML IV ×4 (00:19→21:13)
[2022-05-14] MEDS: Oxymetazoline 0.05% 1 SPRAY SPRAY.BTL 2 SPRAY NASAL (01:22)
[2022-05-14] MEDS: Lidocaine Jelly 2% 20 ML Syringe (URO-JET) 1 APPLIC TOPICAL (01:23)
--- NOTE | 2022-05-14 01:30 | RAD_ITS ---
STUDY: X-RAY - ABDOMEN/PELVIS REASON FOR EXAM: Male, 46 years old. NG Insertion TECHNIQUE: Single AP view of the abdomen / pelvis. This is image of the lower chest upper abdomen. COMPARISON: CT abdomen and pelvis May 13, 2022 FINDINGS: Normal visualized lung bases. NG tube is placed the tip is in the stomach in satisfactory position. RAD/Abdomen Single View (Portable) IMPRESSION: NG tube in satisfactory position. Electronically Signed: Marcy Emmanuel MD at 3:34 EST ,
--- NOTE | 2022-05-14 03:51 | HP.PCM.HOS_ITS ---
HPI - General General Date of Admission: 05/14/22 Date of Service: 05/14/22 Chief Complaint: Nausea and vomiting HPI Narrative FABIÁN MOFFETT, is a 46 M w/ tension, obesity, bipolar disorder, partial small bowel obstruction who presented to [facility] 05/14/2022 with several hours of worsening abdominal pain and vomiting and nausea. He had been here in February 2021 with a bowel obstruction and was managed with NG tube and did not need surgical management at that time. He intermittently will have some constipation and pain every 3 months and will take mag citrate and will resolve. He is followed with Dr. Ruvalcaba and last saw him in October but is done well. Around noon today he began having crampy diffuse abdominal pain and vomiting and eventually came to the emergency department. In the ED he had CT scan of abd omen pelvis that was concerning for recurrent small bowel obstruction. NG tube placed and ED physician spoke with surgery who did not feel this would be surgical and recommended medicine service admit. Spoke with ED and spoke with surgeon who advised NG and conservative management and was agreeable to see in consult. In ED NG tube was placed and patient reports since bothering the back of his throat but abdomen is slightly less painful and he is not nauseous at this time. Leading up to this he denies any other problems and had had a bowel movement the day before he began having the symptoms. Has not been able to eat or drink today and has not had a bowel movement or passed gas but he said he no longer passes gas now that he adjusted his diet. [facility] Medical History Anxiety Arthritis Atypical chest pain Back problem Bipolar disorder Black stools Bowel obstruction Chronic pain H/O blood clots Heartburn HLD (hyperlipidemia) Hypertension Hypothyroidism Non-smoker Obesity Sleep apnea Wears glasses Home Medications diclofenac sodium 50 mg tablet,delayed release 75 mg PO DAILY 04/11/15 [History Last Taken 04/10/15 08:00] lorazepam 1 mg tablet 1 tab PO PRN PRN Anxiety 11/07/17 [History Last Taken Unknown] amlodipine 5 mg tablet 20 mg PO DAILY 05/07/19 [History Last Taken Unknown] quetiapine 25 mg tablet (Seroquel) 50 mg PO QHS 05/26/21 [History Last Taken Unknown] losartan 50 mg tablet 50 mg PO DAILY 05/14/22 [History Last Taken Unknown] quetiapine 25 mg tablet (Seroquel) 25 mg PO DAILY 05/14/22 [History Last Taken Unknown] Allergy/AdvReac Type Severity Reaction Status Date / Time Iodinated Contrast Media Allergy Itching Verified 05/13/22 22:10 propoxyphene napsylate Allergy Other Verified 05/13/22 22:10 [From Darvocet-N 100] Family History Father Heart disease Hypertension Hyperlipidemia Seizures Depression Mother Heart disease Hyperlipidemia Hypertension Anxiety Arthritis defect Depression Myocardial infarction Grandfather Heart disease Myocardial infarction Unknown Alcoholism Surgical History History of back surgery History of knee surgery Social History Smoking Status: Never smoker alcohol intake: current substance use type: does not use what type of physical activity do you participate in: other frequency: 5-6 times per week ROS ROS Narrative General: Denies fever or chills, denies weight change HENT: Denies headache, denies stuffy nose, now has a sore throat after NG passing EYES: Denies changes in vision Resp: Denies cough, denies shortness of breath Cardiac: Denies chest pain GI: Did have diffuse abdominal pain with nausea and vomiting but this is somewhat improved, no bowel movement : Denies changes in urination Extremity: Denies swelling MSK: Denies weakness Neuro: Denies any numbness, denies tingling Heme: Denies any bleeding or bruising Skin: Denies rashes Psychiatric: No complaints voiced Vital Signs Vital Signs Vital Signs: 05/13/22 21:50 05/13/22 22:11 05/13/22 23:27 Temperature 98 F Temperature Source Temporal Pulse Rate 83 95 69 Respiratory Rate 16 18 17 Blood Pressure 160/118 H 177/114 H 171/97 H Blood Pressure Mean 132 135 121 Pulse Ox 97 96 97 Oxygen Delivery Method Room Air Room Air Room Air 05/14/22 00:20 05/14/22 03:30 Temperature 98 F Temperature Source Temporal Pulse Rate 75 81 Respiratory Rate 18 16 Blood Pressure 153/92 H 154/85 H Blood Pressure Mean 112 108 Pulse Ox 96 98 Oxygen Delivery Method Room Air Room Air Weight Weight: 123.944 kg Body Mass Index (BMI) 39.2 Physical Exam Narrative General: Alert, oriented, appears uncomfortable HEENT: Atraumatic, normocephalic Eyes: Anicteric, normal conjunctiva, extraocular movements grossly intact Neck: Supple Respiratory: Clear to auscultation bilaterally, normal respiratory effort Cardiovascular: Regular rate and rhythm GI: Soft, mildly tender diffusely without rebound, guarding, rigidity, hypoactive bowel sounds Extremities: No edema Musculoskeletal: Moving all extremities Neuro: No overt focal neurological deficits Skin: No rashes appreciated Psych: Cooperative Results Lab / Micro Data Result Diagrams: 05/13/22 23:05 05/13/22 23:05 Labs: Laboratory Results - last 24 hr 05/13/22 23:05: WBC 9.9, RBC 5.64, Hgb 17.3 H, Hct 49.3, MCV 87.4, MCH 30.7, MCHC 35.1, RDW Std Deviation 41.1, RDW Coeff of Bianka 13.0, Plt Count 272, MPV 10.1, Immature Gran % (Auto) 0.300, Neut % (Auto) 85.4 H, Lymph % (Auto) 9.5 L, Cross % (Auto) 4.3, Eos % (Auto) 0.3, Baso % (Auto) 0.2, Absolute Neuts (auto) 8.5 H, Absolute Lymphs (auto) 0.94, Nucleated RBC % 0 05/13/22 23:05: Sodium 142, Potassium 3.8, Chloride 108 H, Carbon Dioxide 26.0, Anion Gap 8, BUN 17, Creatinine 1.00, Estim Creat Clear Calc 94.29, Est GFR (MDRD) Af Amer 103, Est GFR (MDRD) Non-Af 85, BUN/Creatinine Ratio 17.0, Glucose 129 H, Calcium 9.4, Total Bilirubin 1.30 H, Direct Bilirubin 0.19, AST 12 L, ALT 30, Alkaline Phosphatase 77, Total Protein 7.6, Albumin 4.0, Globulin 3.6, Lipase 130 Radiology Impression Abdomen/Pelvis CT 05/13/22 23:39 IMPRESSION: Findings are suspicious for recurrent small bowel obstruction. Recommend correlation with history and any history of inflammatory bowel disease. Could consider possible Crohn''s disease. Potentially Crohn''s disease could have this appearance. Degenerative change of the lumbar spine. No appendicitis. Electronically Signed: Marcy Emmanuel MD at 1:06 EST , ADDENDUM: 05/14/22 0115 IMPRESSION: Findings are suspicious for recurrent small bowel obstruction. Recommend correlation with history and any history of inflammatory bowel disease. Could consider possible Crohn''s disease. Potentially Crohn''s disease could have this appearance. Degenerative change of the lumbar spine. No appendicitis. N.B. : The above Results were Read Back by Marcy Emmanuel MD to Char Mei , AA, and understanding confirmed on 05/14/2022 01:08:23 (ET). Electronically Signed: Marcy Emmanuel MD at 1:06 EST , KUB X-Ray 05/14/22 01:30 IMPRESSION: NG tube in satisfactory position. Electronically Signed: Marcy Emmanuel MD at 3:34 EST , Assessment & Plan Assessment/Plan (1) Small bowel obstruction: PLAN: Plan #Nausea and abdominal pain, suspicion for recurrent small bowel obstruction -CT suspicious for recurrent small bowel obstruction -NG tube placed in ED with near resolution of symptoms -N.p.o., NG tube on suction, surgery consulted -Zofran, pain control -Continue fluids #Bipolar disorder -Resume Seroquel when tolerating p.o. #DVT ppx: SCDs Sunita Arenas MD Time spent in the patient's overall evaluation,decision-making process, review of diagnostic data, adjustment of management, discussion with other providers, nursing nursing and ancillary staff involved in patient's care documentation, 60 minutes Charges/Coding Visit Charges Inpatient E&M: 67466 Init Hosp L2
[2022-05-14 06:26] LABS: Absolute Lymphocyte Count 1.08 X10^3/uL (0.83-4.51); Basophil# 0.02 X10^3/uL; Basophil% 0.2 % (0-1); Eosinophil# 0.03 X10^3/uL; Eosinophils% 0.4 % (0-5); Hematocrit 47.6 % (40-54); Hemoglobin 16.1 g/dL (13.0-16.5); Lymphocyte # 1.08 X10^3/ul (0.83-4.51); Lymphocyte % 12.7 % (19-41); Mean Corp Hgb Conc 33.8 g/dL (32-36); Mean Corpuscular Hgb 29.9 pg (27.0-32.0); Mean Corpuscular Volume 88.3 fL (80-94); Mean Platelet Vol. 9.6 fl (6.2-12.0); Monocyte# 0.38 X10^3/uL; Monocyte% 4.5 % (0-10); NRBC Flagged by Analyzer 0 % (0-5); Neutrophil # 6.97 X10^3/uL (2.7-7.7); Neutrophil % 81.8 % (47-70); Platelet Count 245 K/mm3 (150-450); RBC Distribution Width CV 13.1 % (11.6-14.6); RBC Distribution Width SD 41.9 fl (35.1-43.9); Red Blood Count 5.39 M/mm3 (4.6-6.2); White Blood Count 8.5 K/mm3 (4.4-11.0)
[2022-05-14 06:39] LABS: Prothrombin Time (Protime)PT. 12.8 SECONDS (11.7-14.9)
[2022-05-14 06:50] LABS: AST(SGOT) 13 U/L (15-37); Alanine Aminotransfer ALT/SGPT 32 U/L (16-61); Albumin, Serum 3.5 g/dL (3.2-5.0); Alkaline Phosphatase 72 U/L (45-117); Anion Gap 5 (5-15); BUN 17 mg/dL (7-18); BUN/Creat Ratio 17.6 RATIO (10-20); Calcium,Total 8.4 mg/dL (8.5-10.1); Chloride 108 mmol/L (98-107); Creatinine, Serum 0.97 mg/dL (0.70-1.30); EST Glomerular Filtration Rate 88 mL/min (>60); Est Glom Filt Rate - Afr Amer 107 mL/min (>60); Estimated Creatinine Clearance 97.21 ml/min; Globulin 3.4 g/dL (2.2-4.2); Glucose 125 mg/dL (74-106); Potassium 3.9 mmol/L (3.5-5.1); Protein, Total 6.9 g/dL (6.4-8.2); Sodium Level 140 mmol/L (136-145)
--- NOTE | 2022-05-14 07:28 | CON.PCM.SX_ITS ---
Assessment & Plan Assessment/Plan (1) Small bowel obstruction: PLAN: Plan We will do conservative management NG/n.p.o./IV fluids. Patient's had minimal out of the NG will plan for modified small bowel follow-th rough today. Albina Dobbins M.D. Pager: [phone] [facility] [address] [place] [address], [facility], [address] [place] [address] Office: [phone] HPI Consult Data Date of Consult: 05/15/22 HPI Narrative HPI Narrative: FABIÁN MOFFETT, is a 46 M who presents to the ER due to epigastric abdominal pain which started yesterday. Patient states it feels similar to previously when he had bowel obstruction. In February 2021 patient was treated conservatively and resolved with NG tube placement. Patient also has had extensive work-up with Dr. Ruvalcaba with an EGD and colonoscopy and capsule study in 2021 did not show any evidence of Crohn's disease. Patient states he has tried to take the magnesium citrate when he feels that he is starting to get obstruction however at this time it did not work. Patient states he only takes a small amount of it when he does attempt. Patient did have nausea and vomit ing. [facility] Medical History (Updated 05/14/22 @ 05:03 by Susan Salgado) Anxiety Arthritis Atypical chest pain Back problem Bipolar disorder Black stools Bowel obstruction Chronic pain DVT (deep venous thrombosis) GERD (gastroesophageal reflux disease) H/O blood clots Heartburn HLD (hyperlipidemia) Hypertension Hypertension Hypothyroidism Hypothyroidism Non-smoker Obesity Sleep apnea Sleep apnea Wears glasses Home Medications diclofenac sodium 50 mg tablet,delayed release 75 mg PO DAILY 04/11/15 [History Last Taken 04/10/15 08:00] lorazepam 1 mg tablet 1 tab PO PRN PRN Anxiety 11/07/17 [History Last Taken Unknown] amlodipine 5 mg tablet 20 mg PO DAILY 05/07/19 [History Last Taken Unknown] quetiapine 25 mg tablet (Seroquel) 50 mg PO QHS 05/26/21 [History Last Taken Unknown] losartan 50 mg tablet 50 mg PO DAILY 05/14/22 [History Last Taken Unknown] quetiapine 25 mg tablet (Seroquel) 25 mg PO DAILY 05/14/22 [History Last Taken Unknown] Allergy/AdvReac Type Severity Reaction Status Date / Time Iodinated Contrast Media Allergy Itching Verified 05/13/22 22:10 propoxyphene napsylate Allergy Other Verified 05/13/22 22:10 [From [facility]-N 100] Family History Father Heart disease Hypertension Hyperlipidemia Seizures Depression Mother Heart disease Hyperlipidemia Hypertension Anxiety Arthritis defect Depression Myocardial infarction Grandfather Heart disease Myocardial infarction Unknown Alcoholism Surgical History History of back surgery History of knee surgery Social History Smoking Status: Never smoker alcohol intake: current substance use type: does not use what type of physical activity do you participate in: other frequency: 5-6 times per week ROS Constitutional Constitutional: Reports anorexia Eyes Eyes: Denies change in vision ENT HEENT: Denies dysphagia Cardiovascular Cardiovascular: Denies chest pain Respiratory/Chest Respiratory/Chest: Denies cough Gastrointestinal Gastrointestinal: Reports abdominal pain, constipation, nausea and vomiting Genitourinary Genitourinary: Denies dysuria Musculoskeletal Musculoskeletal: Denies joint swelling Integumentary Integumentary: Denies rash Neurologic Neurologic: Denies focal weakness Psychiatric Psychiatric: Denies depression Hematologic/Lymphatic Hematologic/Lymphatic: Denies easy bleeding Physical Exam Const alert, oriented x3 and no apparent distress HEENT normocephalic and head/scalp atraumatic HEENT Narrative: NG in place Resp normal respiratory effort Cardio regular rate GI soft to palpation; Negative for non-distended Palpation: tender other (Epigastric/mid abdomen tender, no peritoneal signs); Negative for guarding Extremity no clubbing, cyanosis or edema Neuro CN's II-XII intact bilaterally Psych mental status grossly normal Lab / Micro Data Result Diagrams: 05/14/22 06:10 05/14/22 06:10 Labs: Laboratory Results - last 24 hr 05/13/22 23:05: WBC 9.9, RBC 5.64, Hgb 17.3 H, Hct 49.3, MCV 87.4, MCH 30.7, MCHC 35.1, RDW Std Deviation 41.1, RDW Coeff of Bianka 13.0, Plt Count 272, MPV 10.1, Immature Gran % (Auto) 0.300, Neut % (Auto) 85.4 H, Lymph % (Auto) 9.5 L, [place] % (Auto) 4.3, Eos % (Auto) 0.3, Baso % (Auto) 0.2, Absolute Neuts (auto) 8.5 H, Absolute Lymphs (auto) 0.94, Nucleated RBC % 0 05/13/22 23:05: Sodium 142, Potassium 3.8, Chloride 108 H, Carbon Dioxide 26.0, Anion Gap 8, BUN 17, Creatinine 1.00, Estim Creat Clear Calc 94.29, Est GFR (MDRD) Af Amer 103, Est GFR (MDRD) Non-Af 85, BUN/Creatinine Ratio 17.0, Glucose 129 H, Calcium 9.4, Total Bilirubin 1.30 H, Direct Bilirubin 0.19, AST 12 L, ALT 30, Alkaline Phosphatase 77, Total Protein 7.6, Albumin 4.0, Globulin 3.6, Lipase 130 05/14/22 06:10: WBC 8.5, RBC 5.39, Hgb 16.1, Hct 47.6, MCV 88.3, MCH 29.9, MCHC 33.8, RDW Std Deviation 41.9, RDW Coeff of Bianka 13.1, Plt Count 245, MPV 9.6, Immature Gran % (Auto) 0.400, Neut % (Auto) 81.8 H, Lymph % (Auto) 12.7 L, [place] % (Auto) 4.5, Eos % (Auto) 0.4, Baso % (Auto) 0.2, Absolute Neuts (auto) 7.0, Absolute Lymphs (auto) 1.08, Nucleated RBC % 0 05/14/22 06:10: PT 12.8, INR 1.0 05/14/22 06:10: Sodium 140, Potassium 3.9, Chloride 108 H, Carbon Dioxide 27.0, Anion Gap 5, BUN 17, Creatinine 0.97, Estim Creat Clear Calc 97.21, Est GFR (MDRD) Af Amer 107, Est GFR (MDRD) Non-Af 88, BUN/Creatinine Ratio 17.6, Glucose 125 H, Calcium 8.4 L, Total Bilirubin 1.10 H, AST 13 L, ALT 32, Alkaline Phosphatase 72, Total Protein 6.9, Albumin 3.5, Globulin 3.4, Albumin/Globulin Ratio 1.0 Radiology Impression Abdomen/Pelvis CT 05/13/22 23:39 IMPRESSION: Findings are suspicious for recurrent small bowel obstruction. Recommend correlation with history and any history of inflammatory bowel disease. Could consider possible Crohn''s disease. Potentially Crohn''s disease could have this appearance. Degenerative change of the lumbar spine. No appendicitis. Electronically Signed: Marcy Emmanuel MD at 1:06 EST , ADDENDUM: 05/14/22 0115 IMPRESSION: Findings are suspicious for recurrent small bowel obstruction. Recommend correlation with history and any history of inflammatory bowel disease. Could consider possible Crohn''s disease. Potentially Crohn''s disease could have this appearance. Degenerative change of the lumbar spine. No appendicitis. N.B. : The above Results were Read Back by Marcy Emmanuel MD to Char Mei , AA, and understanding confirmed on 05/14/2022 01:08:23 (ET). Electronically Signed: Marcy Emmanuel MD at 1:06 EST , KUB X-Ray 05/14/22 01:30 IMPRESSION: NG tube in satisfactory position. Electronically Signed: Marcy Emmanuel MD at 3:34 EST , Charges/Coding Visit Charges Inpatient E&M: 14892 Init Hosp L3
--- NOTE | 2022-05-14 08:15 | RAD_ITS ---
EXAM: XR ABDOMEN, 1 VIEW CLINICAL INDICATION: Small bowel obstruction-- portable TECHNIQUE: Frontal supine view of the abdomen/pelvis. This report was created using [employer] report generation technology. COMPARISON: XR Abdomen dated 05/14/2022 FINDINGS: GASTROINTESTINAL TRACT: Gaseous distention of the proximal jejunum which may represent ileus or small bowel obstruction. ORGANS: No organomegaly. BONES/JOINTS: No acute abnormality. SOFT TISSUES: No pathological calcification. TUBES, LINES AND DEVICES: Enteric tube extends into the stomach. RAD/Abdomen Single View (Portable) IMPRESSION: Small bowel ileus versus obstruction Electronically Signed: Pa Andrade MD at 14:54 EST ,
[2022-05-14] MEDS: Enoxaparin 40 MG/0.4 ML Syringe SC (09:40)
[2022-05-14] MEDS: QUEtiapine 25 MG Tablet PO (09:40)
--- NOTE | 2022-05-14 10:30 | RAD_ITS ---
EXAM: FL SMALL BOWEL FOLLOW THROUGH CLINICAL INDICATION: Small bowel obstruction-- gastrografin-modified; KUB in 1 hr 3 hrs TECHNIQUE: Fluoroscopy of the small bowel including multiple serial delayed images following oral contrast administration. Fluoroscopic guidance was provided by a physician. This report was created using [employer] report generation technology. COMPARISON: None. FINDINGS: Multiple dilated loops of small bowel again noted. Dilute contrast extends to the right colon at 3.5 hours. The visualized distal small bowel is nondistended. The appearance is consistent with partial small bowel obstruction. RAD/Small Bowel Series Only IMPRESSION: Partial small bowel obstruction. Electronically Signed: Pa Andrade MD at 17:00 EST ,
[2022-05-14] MEDS: Ondansetron 4 MG/2 ML Vial IV (12:08)
[2022-05-14] MEDS: Lisinopril 20 MG Tablet PO ×2 (15:21→23:00)
[2022-05-14] MEDS: cloNIDine HCl 0.1 MG Tablet PO ×2 (15:22→23:00)
[2022-05-14] MEDS: cloNIDine HCl 0.1 MG Tablet 0.2 MG PO ×2 (16:37→18:38)
--- NOTE | 2022-05-14 17:56 | PCM.HOSP.N ---
Hospitalist Note Patient was seen and examined today, he has a history of essential hypertension and nursing called me today to discuss his elevated blood pressure. I have decided to place the patient on lisinopril down his G-tube and also clonidine, I am reluctant to give him amlodipine due to his bowel obstruction. Patient may need other medications such as labetalol to control his blood pressure. I have asked nursing at this time to give me a call in approximately an hour, I added another dose of clonidine to the medications I just ordered for the patient.
[2022-05-14] MEDS: QUEtiapine 25 MG Tablet 50 MG PO (23:00)
[2022-05-14] MEDS: Labetalol 200 MG Tablet PO (23:02)
--- NOTE | 2022-05-14 23:26 | NURSING ---
Patient ambulated two laps around the unit in hallway.
[2022-05-15] MEDS: 0.9% Normal Saline 1,000 ML 150 ML IV ×2 (03:49→10:18)
[2022-05-15 03:50] VITALS: BP 136/75; PULSE 60; RESP 18; TEMP 36.6; O2SAT 95
--- NOTE | 2022-05-15 05:55 | RAD_ITS ---
STUDY: X-RAY - ABDOMEN/PELVIS REASON FOR EXAM: Male, 46 years old. sbo TECHNIQUE: Single AP view of the abdomen / pelvis. COMPARISON: Comparison is made with prior study there is 05/14/2022. FINDINGS: A nasogastric tube is seen in the region of the gastroesophageal junction. The oral contrast is now visualized within the colon down to the region of the rectum. Residual small bowel dilatation in the left mid abdomen. Findings suggestive of a partial small bowel obstruction. RAD/Abdomen Single View (Portable) IMPRESSION: Oral contrast is seen throughout the colon. Mildly dilated residual small bowel loops in the left midabdomen suggestive of a partial small bowel obstruction. Electronically Signed: Ambrose Pena MD at 11:24 EST ,
--- NOTE | 2022-05-15 07:32 | PN.SURG_ITS ---
Subjective Subjective Patient denies any abdominal pain. Patient did vomiting between the small bowel follow-through but the contrast did get to the colon by the 3 hours. This morning it is contrast throughout the colon patient did have a bowel movement this morning. Objective Data Objective Data Vital Signs: Vital Signs Temp Pulse Resp BP Pulse Ox O2 Del Method 97.9 F 60 18 136/75 H 95 Room Air 05/15/22 03:50 05/15/22 03:50 05/15/22 03:50 05/15/22 03:50 05/15/22 03:50 05/15/22 06:58 Oxygen Delivery Method Room Air Weight: 270 lb 14.4 oz Body Mass Index (BMI) 38.8 Intake & Output: Intake and Output for Last 24 Hours 05/13/22 05/14/22 05/15/22 23:59 23:59 23:59 Intake Total 2827.5 / 2827.5 1050 / 1050 Output Total 1000 / 1000 200 / 200 Balance 1827.5 / 1827.5 850 / 850 Lab / Micro Data Result Diagrams: 05/14/22 06:10 05/14/22 06:10 Radiography Diagnostic Testing: Radiology Impression KUB X-Ray 05/14/22 08:15 IMPRESSION: Small bowel ileus versus obstruction Electronically Signed: Pa Andrade MD at 14:54 EST , Small Bowel X-Ray 05/14/22 10:30 IMPRESSION: Partial small bowel obstruction. Electronically Signed: Pa Andrade MD at 17:00 EST , Physical Exam Const Constitutional Narrative: NG in place Resp normal respiratory effort Cardio regular rate GI soft to palpation and non-tender Inspection: Negative for abdominal distention Assessment & Plan Assessment/Plan (1) Small bowel obstruction: PLAN: Plan Patient small bowel follow-through did go to the colon 3 hours. Patient did vomit in between the 2 x-rays. This morning patient's KUB shows contrast throughout the colon only 1 area of mildly dilated small bowel loops. Patient denies any abdominal pain. Will DC NG and try clears. Discussed with patient that if he has increased pain the clears patient may need surgery. Patient was agreeable with plan. Addendum: Patient tolerated clear liquids had additional bowel movements will advance to a low residue/soft diet if tolerates okay to DC home. Albina Dobbins M.D. Pager: [phone] [facility] [address] [place] [address], [facility], [address] [place] [address] Office: [phone] Charges/Coding Visit Charges Inpatient E&M: 50334 Subs Hosp L2
[2022-05-15 09:10] VITALS: BP 100/73; PULSE 68; RESP 18; TEMP 37.1; O2SAT 100
--- NOTE | 2022-05-15 09:58 | CASEMGMT ---
MARICARMEN LOUISE Assessment: Face to Face with pt for initial transition planning/care coordination assessment. RN DANI introduced self and role at [facility], pt voices understanding and consents to assessment. Pt is A/O x4 and answers all questions appropriately at this time. Pt sitting up in chair in no distress. Pt seen ambulating the halls indep earlier. Care providers, pharmacy, and demographics verified/updated. Admitting Dx: bowel obstruction poss PCP:Angélica Specialists: zaida Noble Preferred Pharmacy: [facility] while hospitalized Insurance: [employer] Prescription Benefit: yes LNOK: Keanu Marinelli, Living Arrangements: Pt lives with and adult dtr in a single story home with 2 steps to enter. Pt reports he is I in ADL's and denies concerns at home. Transportation: Pt drives self and denies concerns with transportation. DME/HHC/SNF: Pt denies having any DME, previous HHC or SNF stays. Pt states no concerns with going home at time of dc. Pt states no further concerns/needs. CM to follow. Advised pt to ask CM if any further question/concerns/needs arise, voices understanding. Pt Goal: Home Plan: Home
[2022-05-15] MEDS: Lisinopril 20 MG Tablet PO (10:17)
[2022-05-15] MEDS: cloNIDine HCl 0.1 MG Tablet PO (10:17)
[2022-05-15] MEDS: Enoxaparin 40 MG/0.4 ML Syringe SC (10:17)
[2022-05-15] MEDS: Labetalol 200 MG Tablet PO (10:17)
[2022-05-15] MEDS: QUEtiapine 25 MG Tablet PO (10:17)
--- NOTE | 2022-05-15 14:53 | DS.PCM_ITS ---
Providers Date of Admission: 05/14/22 Date of Discharge: 05/15/22 Primary Care Physician: Dr. Ellen Lindsay, Consultations 05/14/22 04:34 Consult: General Surgery Routine Consulting Provider: Albina Dobbins Reason for Consult: concern for bowel obstruction EMERGENT Consult: No MD Notified: Yes Date Notified: 05/14/22 Time Notified: 03:53 Method of Notification: Verbal Reason For Visit: BOWEL OBSTRUCTION POSS Diagnosis Discharge Diagnosis (1) Small bowel obstruction: Status: Acute Code(s): K56.609 - Unspecified intestinal obstruction, unspecified as to partial versus complete obstruction Medications at Discharge Home Medications diclofenac sodium 50 mg tablet,delayed release 75 mg PO DAILY 04/11/15 lorazepam 1 mg tablet 1 tab PO PRN PRN Anxiety 11/07/17 amlodipine 5 mg tablet 20 mg PO DAILY 05/07/19 quetiapine 25 mg tablet (Seroquel) 50 mg PO QHS 05/26/21 losartan 50 mg tablet 50 mg PO DAILY 05/14/22 quetiapine 25 mg tablet (Seroquel) 25 mg PO DAILY 05/14/22 Hospital Course Operations None Procedures None Summary of Care Provided Minutes Spent on Discharge: 40 Hospital Course: Patient is a 46-year-old male with an extensive past medical history as outlined was admitted through the ED on 05/14/2022 with a complaint of abdominal pain with associated nausea and vomiting. Patient had been seen in February 2021 with similar symptoms and was found to have bowel obstruction and was treated conservatively. Patient does have intermittent constipation for which she takes mag citrate. He also follows up with gastroenterology. On the day of admission, he started having cramping diffuse abdominal pain and vomiting and came into the ED where imaging of the abdomen and pelvis done was concerning for recurrent small bowel obstruction. NG tube was placed and patient was admitted to be managed for recurrent small bowel obstruction. General surgery was consulted who advised conservative management for now. Abdominal pain resolved and patient subsequently started having bowel movements. NG tube was removed and patient tolerated a clear liquid diet which was advanced to a low residue diet which she also tolerated. Patient expressed desire to go home and general surgery concurred. Patient remained stable and was discharged on 05/15/2022. He is to follow-up with his primary care doctor and to follow-up with general surgery on outpatient basis as well. Patient was seen and examined prior to discharge. He had no active complaints and had an uneventful night. Review of systems otherwise negative. Labs and vitals reviewed. Home medication reviewed and reconciled. Physical Exam Const alert, oriented x3 and no apparent distress General Appearance: cooperative, comfortable and well kempt Orientation / Consciousness: awake Exam Limitations: no limitations HEENT normocephalic, head/scalp atraumatic, hearing grossly normal bilaterally and moist oral mucous membranes Mouth: oral and palatal mucosa normal Eyes PERRL, EOMs intact bilaterally and conjunctivae normal Resp normal respiratory effort, no retractions, no use of accessory muscles and clear to auscultation bilaterally Cardio regular rate, regular rhythm, S1 normal heart sound, S2 normal heart sound and no murmurs GI normal to inspection, nondistended, normoactive bowel sounds, soft to palpation, non-tender and non-distended Extremity normal to inspection and full ROM General Extremity: edema Skin no rashes or lesions noted and no wounds Neuro oriented x3, CN's II-XII intact bilaterally, moves all extremities and no focal motor deficits Sensorium / Orientation: awake and alert Motor Exam: strength 5/5 throughout Psych affect normal Weight / BMI Weight Weight: 270 lb 14.4 oz Body Mass Index (BMI) 38.8 ABG / Lab / Microbiology Data Result Diagrams: 05/14/22 06:10 05/14/22 06:10 Radiography Diagnostic Testing: Radiology Impression KUB X-Ray 05/14/22 08:15 IMPRESSION: Small bowel ileus versus obstruction Electronically Signed: Pa Andrade MD at 14:54 EST , Small Bowel X-Ray 05/14/22 10:30 IMPRESSION: Partial small bowel obstruction. Electronically Signed: Pa Andrade MD at 17:00 EST , KUB X-Ray 05/15/22 05:55 IMPRESSION: Oral contrast is seen throughout the colon. Mildly dilated residual small bowel loops in the left midabdomen suggestive of a partial small bowel obstruction. Electronically Signed: Ambrose Pena MD at 11:24 EST , D/C Instructions Discharge Diet: Low fat / Low cholesterol Discharge Activity: Return to Normal Activity Weight Bearing Status: Weight bearing as tolerated Call your doctor if you observe: Fever of 101 or Higher, Shortness of breath, Dizziness, Swelling in the ankles, Chest pain and Increased palpitations (ir regular heartbeat) Meaningful Use Info Meaningful Use Diagnoses (Choose all that apply): None applicable Discharge Plan Admission Admit Date/Time: 05/14/22 02:42 Primary Reason for Your Visit: partial small bowel obstruction Attending Provider: Bozena Garcia Primary Care Provider: Ellen Lindsay Consulting Providers: Albina Dobbins ; Sunita Arenas ; Miles Polo Instructions Patient Instructions: Small Bowel Obstruction Discharge Orders/Prescriptions Prescriptions: Continued diclofenac sodium 50 MG tablet 75 mg PO DAILY Label Comments: pain lorazepam 1 MG tablet 1 tab PO PRN PRN (Reason: Anxiety) Label Comments: amlodipine 5 mg tablet 20 mg PO DAILY Label Comments: quetiapine [Seroquel] 25 mg tablet 50 mg PO QHS Label Comments: TAKE 1 TABLET BY MOUTH ONCE DAILY AT BEDTIME losartan 50 mg tablet 50 mg PO DAILY Label Comments: TAKE 1 TABLET BY MOUTH ONCE DAILY quetiapine [Seroquel] 25 mg Tablet 25 mg PO DAILY Referrals / Follow Up: Ellen Lindsay DO [Primary Care Provider] - Within 2 Weeks Albina Dobbins MD [Med Staff - Active Staff] - Within 1 Week Disposition Disposition (needs filled in before D/C Order can be placed): Home, Self Care Charges/Coding Visit Charges Inpatient E&M: 08687 Disch Hosp >30min
--- NOTE | 2022-05-15 14:53 | DCINST_ITS ---
Discharge Instructions Diet Discharge Diet: Low fat / Low cholesterol Activity Discharge Activity: Return to Normal Activity Weight Bearing Status: Weight bearing as tolerated Dressing / Incision Call your doctor if you observe: Fever of 101 or Higher, Shortness of breath, Dizziness, Swelling in the ankles, Chest pain and Increased palpitations (irregular heartbeat) Follow Up Care Test Results: Test results from this visit will be discussed in further detail at your follow- up appointment, if applicable. Discharge Plan Admission Admit Date/Time: 05/14/22 02:42 Primary Reason for Your Visit: partial small bowel obstruction Attending Provider: Bozena Garcia Primary Care Provider: Ellen Lindsay Consulting Providers: Albina Dobbins ; Sunita Arenas ; Miles Polo Instructions Patient Instructions: Small Bowel Obstruction Discharge Orders/Prescriptions Prescriptions: Continued diclofenac sodium 50 MG tablet 75 mg PO DAILY Label Comments: pain lorazepam 1 MG tablet 1 tab PO PRN PRN (Reason: Anxiety) Label Comments: amlodipine 5 mg tablet 20 mg PO DAILY Label Comments: quetiapine [Seroquel] 25 mg tablet 50 mg PO QHS Label Comments: TAKE 1 TABLET BY MOUTH ONCE DAILY AT BEDTIME losartan 50 mg tablet 50 mg PO DAILY Label Comments: TAKE 1 TABLET BY MOUTH ONCE DAILY quetiapine [Seroquel] 25 mg Tablet 25 mg PO DAILY Referrals / Follow Up: Ellen Lindsay DO [Primary Care Provider] - Within 2 Weeks Albina Dobbins MD [Med Staff - Active Staff] - Within 1 Week Disposition Disposition (needs filled in before D/C Order can be placed): Home, Self Care
[2022-05-15 15:50] VITALS: BP 110/63; PULSE 59; RESP 18; TEMP 36.7; O2SAT 98
== END 2022-05-15 15:53 | disposition home or self-care (01) | DRG 390 ==
LOC: ED 05-14 01:30 → MS3 05-14 07:08
PROVIDERS: Admitting Provider Internal Medicine; Emergency Provider Emergency Medicine; PCP Family Medicine; Visit Provider Student in an Organized Health Care Education/Training Program
DX: K56.600 Partial intestinal obstruction, unspecified as to cause (principal); E66.9 Obesity, unspecified; F31.9 Bipolar disorder, unspecified; I10 Essential (primary) hypertension; E78.5 Hyperlipidemia, unspecified; Z68.39 Body mass index [BMI] 39.0-39.9, adult; G89.29 Other chronic pain; Z79.899 Other long term (current) drug therapy
CPT/HCPCS: 36415; 74018; 74176; 74250; 80048; 80053; 80076; 83690; 85025; 85610; 97802; 99252; 99285; J7030; A4216; G0463; J2405

== ENCOUNTER → 2022-05-24 | Outpatient (CLI) | payer BC, SELFPAY ==
[2022-05-24 13:13] LABS: T4 Free Direct 0.92 ng/dL (0.76-1.46); Thyroid Stim Hormone (TSH) 3.54 uIU/mL (0.358-3.74)
== END | disposition home or self-care (01) ==
LOC: BFHLAB 09:41
PROVIDERS: PCP Family Medicine; Visit Provider Family Medicine
DX: E03.9 Hypothyroidism, unspecified (principal)
CPT/HCPCS: 36415; 84439; 84443

== ENCOUNTER 2022-06-04 17:37 | Inpatient (IN) | payer BC, SELFPAY ==
[2022-06-04] VITALS (9 sets, daily range): BP systolic 166–211; BP diastolic 107–125; PULSE 54–76; RESP 18; TEMP 36.6–36.9; O2SAT 95–98; BMI 39.2; BMI 39.6
--- NOTE | 2022-06-04 18:24 | CT_ITS ---
We are attempting to reach an attending provider to discuss findings. An addendum with communication details will be sent when the communication is complete. EXAM: CT ABDOMEN AND PELVIS WITHOUT INTRAVENOUS CONTRAST CLINICAL INDICATION: Pain TECHNIQUE: Helically acquired images were obtained of the abdomen and pelvis without intravenous contrast. This CT exam was performed using one or more of the following dose reduction techniques: automated exposure control, adjustment of the mA and/or kV according to patient size, and/or use of iterative reconstruction technique. This report was created using [employer] report [employer] technology. RADIATION DOSE: Total DLP: 1132.25 mGy-cm. COMPARISON: Abdominal pelvic CT of 05/13/2022. Abdominal radiograph of 05/15/2022. FINDINGS: LOWER THORAX: No acute basilar pulmonary infiltrates or pleural effusions. Calcified granuloma in the right lower lobe laterally. No coronary artery calcification is visualized. No significant pericardial effusion. ABDOMEN: LIVER: Unremarkable. Homogeneous. GALLBLADDER AND BILE DUCTS: Unremarkable. No calcified gallstones. No gallbladder distention or wall edema. No intra- or extrahepatic biliary ductal dilation. PANCREAS: Unremarkable. No focal cystic mass. SPLEEN: Unremarkable. Normal size without focal cystic or solid mass. ADRENALS: Unremarkable. No nodules. KIDNEYS AND URETERS: Unremarkable. Normal renal size and position. No hydronephrosis. STOMACH AND BOWEL: Multiple loops of distended small bowel with air-fluid levels and fecalized material are seen within the lower abdomen and upper pelvis, with these distended small bowel loops measuring up to 4.6 cm in transverse diameter. Mild hazy mesenteric edema noted adjacent to the distended small bowel loops. The distal small bowel loops are decompressed, with a zone of transition within the right lower quadrant. Minimal colonic diverticulosis is present without evidence for acute diverticulitis. No gastric mural thickening or periduodenal inflammatory changes. PELVIS: APPENDIX: Normal. No evidence of acute appendicitis. BLADDER: Unremarkable. REPRODUCTIVE: Unremarkable as visualized. No mass. ABDOMEN and PELVIS: INTRAPERITONEAL SPACE: Unremarkable. No ascites or other fluid collection. No free air. BONES/JOINTS: No acute osseous abnormality. Stable findings of lumbar degenerative disc disease, most severe at L4/5 where there is severe disc space narrowing, associated with marginal osteophytes and vacuum disc phenomenon. As on the prior study, there is asymmetric left-sided neural foraminal encroachment due to posterior-lateral osteophytes and facet arthritis. Facet arthritis and annular bulging causes bilateral neural foraminal encroachment at L5/S1, greater on the right. These findings have not significantly changed. No suspicious lytic or blastic abnormality. SOFT TISSUES: Small fat-filled inguinal hernias are present. VASCULATURE: Unremarkable. Abdominal aorta is non-dilated. LYMPH NODES: Small lymph nodes with surrounding bianca mesentery again noted within the central abdomen, unchanged. Normal size aortocaval lymph nodes are present. No para-aortic adenopathy. CT/Abdomen/Pelvis without Cont IMPRESSION: Findings of a recurrent mid to distal small bowel obstruction, with the zone of transition within the right lower quadrant. Nonstandard communication protocol initiated. Electronically Signed: Shmuel Flynn MD at 19:21 EDT ,
[2022-06-04] MEDS: Ondansetron 4 MG/2 ML Vial IV (18:36)
[2022-06-04 18:38] LABS: Absolute Lymphocyte Count 1.12 X10^3/uL (0.83-4.51); Absolute Neutrophil Count 7.4 X10^3/uL (2.0-7.7); Basophil# 0.03 X10^3/uL; Basophil% 0.3 % (0-1); Eosinophils% 2.2 % (0-5); Hematocrit 45.9 % (40-54); Hemoglobin 15.4 g/dL (13.0-16.5); Lymphocyte # 1.12 X10^3/ul (0.83-4.51); Lymphocyte % 12.1 % (19-41); Mean Corp Hgb Conc 33.6 g/dL (32-36); Mean Corpuscular Hgb 29.8 pg (27.0-32.0); Mean Corpuscular Volume 88.8 fL (80-94); Monocyte# 0.46 X10^3/uL; NRBC Flagged by Analyzer 0 % (0-5); Neutrophil # 7.38 X10^3/uL (2.7-7.7); Neutrophil % 80.1 % (47-70); Platelet Count 222 K/mm3 (150-450); RBC Distribution Width CV 12.9 % (11.6-14.6); RBC Distribution Width SD 41.6 fl (35.1-43.9); Red Blood Count 5.17 M/mm3 (4.6-6.2); White Blood Count 9.2 K/mm3 (4.4-11.0)
[2022-06-04] MEDS: morphine 8 MG/ML Syringe IV (18:38)
[2022-06-04] MEDS: 0.9% Normal Saline 1,000 ML 125 ML IV ×2 (18:39→23:14)
--- NOTE | 2022-06-04 18:39 | EDS_ITS ---
HPI <ASUNDRA Dill - Last Filed: 06/04/22 20:56> History of Present Illness Chief Complaint: Abd Pain Narrative Narrative: Patient presenting today with generalized abdominal pain, nausea, and vomiting that started earlier this afternoon. Patient states that he has had a bowel obstructions 3 times, the most recent time being around a month ago. Patient states that he did see Dr. Ruvalcaba for this issue in the past. He no longer sees Dr. Ruvalcaba as he was discharged from his care in the fall due to improvement. He states that he did have a small bowel movement this morning and had 3 bouts of loose stool yesterday. However, patient was hospitalized Sunday through due to his bipolar disorder and only had one bowel movement while being there. He states that usually he takes magnesium citrate when he begins to have abdominal pain and thinks he might be forming a bowel obstruction and that usually takes care of his issue but he has been unable to find it. He denies any fever, hematemesis, blood in the stool, history of abdominal surgery, and urinary symptoms. [facility] <SAUNDRA Dill - Last Filed: 06/04/22 20:56> [facility] Medical History (Updated 06/04/22 @ 21:[address] Monty Ray MD) Anxiety Arthritis Bipolar disorder Chronic pain DVT (deep venous thrombosis) GERD (gastroesophageal reflux disease) History of small bowel obstruction HLD (hyperlipidemia) Hypertension Hypothyroidism Non-smoker Obesity Sleep apnea Wears glasses Home Medications diclofenac sodium 50 mg tablet,delayed release 75 mg PO DAILY ARTHRITIS 04/11/15 [History Last Taken 04/10/15 08:00] lorazepam 1 mg tablet 1 tab PO PRN PRN Anxiety 11/07/17 [History Last Taken Unknown] quetiapine 25 mg tablet (Seroquel) 50 mg PO QHS BIPOLAR 05/26/21 [History Last Taken Unknown] losartan 50 mg tablet 50 mg PO DAILY BLOOD PRESSURE 05/14/22 [History Last Taken Unknown] quetiapine 25 mg tablet (Seroquel) 25 mg PO DAILY BIPOLAR 05/14/22 [History Last Taken Unknown] hydroxyzine pamoate 50 mg capsule 50 mg PO PRN PRN Anxiety 06/04/22 [History Last Taken Unknown] mirtazapine 15 mg tablet 15 mg PO DAILY DEPRESSION 06/04/22 [History Last Taken Unknown] Allergy/AdvReac Type Severity Reaction Status Date / Time Iodinated Contrast Media Allergy Itching Verified 06/04/22 17:39 propoxyphene napsylate Allergy Other Verified 06/04/22 17:39 [From [facility]-N 100] Family History Father Heart disease Hypertension Hyperlipidemia Seizures Depression Mother Heart disease Hyperlipidemia Hypertension Anxiety Arthritis defect Depression Myocardial infarction Grandfather Heart disease Myocardial infarction Unknown Alcoholism Surgical History History of back surgery History of knee surgery Social History Smoking Status: Never smoker alcohol intake: current substance use type: does not use what type of physical activity do you participate in: other frequency: 5-6 times per week ROS <SAUNDRA Dill - Last Filed: 06/04/22 20:56> ROS ED Constitutional Constitutional ED: Denies chills, fever(s) or sweats Eyes Eyes: Denies blurry vision or diplopia Cardiovascular Cardiovascular: Denies chest pain or palpitations Respiratory/Chest Respiratory/Chest: Denies cough, dyspnea, tachypnea or wheezing Gastrointestinal Gastrointestinal: Reports abdominal pain, diarrhea, nausea and vomiting; Denies constipation Genitourinary Genitourinary ED: Denies dysuria, hematuria or urinary urgency Musculoskeletal Musculoskeletal: Denies arthralgias, back pain, myalgias or neck pain Integumentary Denies abscess, Abrasions or rash Neurologic Neurologic: Denies confusion, dizziness or paresthesias EXAM <SAUNDRA Dill - Last Filed: 06/04/22 20:56> Physical Exam Const Vital Signs: 06/04/22 17:37 06/04/22 19:30 06/04/22 20:29 Temperature 97.9 F 98.5 F Temperature Source Temporal Oral Pulse Rate 54 L 73 65 Respiratory Rate 18 18 18 Blood Pressure 194/125 H 201/114 H 211/116 H Blood Pressure Mean 148 143 147 Pulse Ox 97 98 98 Oxygen Delivery Method Room Air Room Air Room Air Positive well nourished, well developed and no apparent distress General Appearance ED: well developed HEENT Reports normocephalic and head/scalp atraumatic Mouth ED: Yes moist mucous membranes normal Eyes PERRL and EOMs intact bilaterally Neck full ROM and supple Chest Wall inspection of chest normal Resp normal respiratory effort and clear to auscultation bilaterally Cardio regular rate and regular rhythm GI soft to palpation, non-distended and no masses GI Narrative: Generalized tenderness to palpation in patient's abdomen. Back/Spine normal ROM and normal to inspection Extremity normal to inspection and full ROM Neuro oriented x3, CN's II-XII intact bilaterally, moves all extremities, no focal motor deficits and no sensory deficits noted Sensorium / Orientation: awake and alert Psych mental status grossly normal and thought process normal Skin no rashes or lesions noted and no wounds <Dr. Monty Ray MD - Last Filed: 06/04/22 21:26> Physical Exam Const Vital Signs: 06/04/22 17:37 06/04/22 19:30 06/04/22 20:29 Temperature 97.9 F 98.5 F Temperature Source Temporal Oral Pulse Rate 54 L 73 65 Respiratory Rate 18 18 18 Blood Pressure 194/125 H 201/114 H 211/116 H Blood Pressure Mean 148 143 147 Pulse Ox 97 98 98 Oxygen Delivery Method Room Air Room Air Room Air [facility] <SAUNDRA Dill - Last Filed: 06/04/22 20:56> [facility] Narrative Medical decision making narrative: Patient presenting with generalized abdominal pain, nausea, and vomiting. He has concerns that he has a small bowel obstruction as he has had them 3 times, the most recent being 1 month ago. He has been given IV fluids, Zofran, and morphine. CT scan of the abdomen and pelvis will be obtained to rule out SBO, colitis, pancreatitis, diverticulitis, biliary colic, appendicitis, and other abdominal etiologies. Patient has been given additional pain control. He states that he was supposed to follow-up with Dr. Arora after his last SBO but never did follow-up. NG tube will be placed. per Dr. Ruvalcaba's note, Colonoscopy performed 05.31.21 finding congested mucosa of the sigmoid colon and terminal ileum. Patient has a history of pseudoobstruction. Patient was discussed with hospitalist who agrees that patient would benefit for admission. He has been given hydralazine for his blood pressure. He will be admitted in stable condition and is comfortable with plan. I have personally performed a face to face assessment of the patient and have reviewed the [facility] Note. I performed a substantive portion of the visit including all aspects of the following. My aguilar findings include: History is remarkable for obstruction and admission in April. 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 Most recent GI report was October 2021. Patient states he has not flagellated today. He has not had a bowel movement since yesterday. He has vomited several times. He feels bloated and distended. He complains of generalized abdominal pain. He has no other complaints. Exam is markable patient appearing uncomfortable. Abdomen is distended tympanitic. Bowel sounds are diminished. There is no tinkling bowel sounds. Heart lung exams unremarkable Medical Decision Making with history of bowel obstruction and history of pseudoobstruction, Ethel syndrome we will obtain CT without contrast as he has allergy to contrast. Blood work was obtained as well to assess electrolytes, renal function, white count. Other additions or changes: [None] Lab Data Labs: Laboratory Results - last 24 hr 06/04/22 06/04/22 18:15 18:15 WBC 9.2 RBC 5.17 Hgb 15.4 Hct 45.9 MCV 88.8 MCH 29.8 MCHC 33.6 RDW Std Deviation 41.6 RDW Coeff of Bianka 12.9 Plt Count 222 MPV 10.0 Immature Gran % (Auto) 0.300 Neut % (Auto) 80.1 H Lymph % (Auto) 12.1 L Henderson % (Auto) 5.0 Eos % (Auto) 2.2 Baso % (Auto) 0.3 Absolute Neuts (auto) 7.4 Absolute Lymphs (auto) 1.12 Nucleated RBC % 0 Sodium 142 Potassium 3.9 Chloride 109 H Carbon Dioxide 26.0 Anion Gap 7 BUN 14 Creatinine 0.93 Estim Creat Clear Calc 101.39 Est GFR (MDRD) Af Amer 112 Est GFR (MDRD) Non-Af 92 BUN/Creatinine Ratio 15.0 Glucose 101 Calcium 8.7 Radiography Diagnostic Testing: Clinical Impression(s) from Imaging Studies Abdomen/Pelvis CT 06/04/22 18:24 IMPRESSION: Findings of a recurrent mid to distal small bowel obstruction, with the zone of transition within the right lower quadrant. Nonstandard communication protocol initiated. Electronically Signed: Shmuel Flynn MD at 19:21 EDT , ADDENDUM: 06/04/221950 IMPRESSION: Findings of a recurrent mid to distal small bowel obstruction, with the zone of transition within the right lower quadrant. Nonstandard communication protocol initiated. N.B. : The above Results were Read Back by Shmuel Flynn MD to SAUNDRA Becker, and understanding confirmed on 06/04/2022 19:44:13 (ET). Electronically Signed: Shmuel Flynn MD at 19:21 EDT , Imaging also reviewed and interpreted by attending ED physician. <Dr. Monty Ray MD - Last Filed: 06/04/22 21:26> [facility] MDM Narrative Medical decision making narrative: Patient presenting with generalized abdominal pain, nausea, and vomiting. He has concerns that he has a small bowel obstruction as he has had them 3 times, the most recent being 1 month ago. He has been given IV fluids, Zofran, and morphine. CT scan of the abdomen and pelvis will be obtained to rule out SBO, colitis, pancreatitis, diverticulitis, biliary colic, appendicitis, and other abdominal etiologies. I have personally performed a face to face assessment of the patient and have reviewed the [facility] Note. I performed a substantive portion of the visit including all aspects of the following. My aguilar findings include: History is remarkable for obstruction and admission in April. 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 Most recent GI report was October 2021. Patient states he has not flagellated today. He has not had a bowel movement since yesterday. He has vomited several times. He feels bloated and distended. He complains of generalized abdominal pain. He has no other complaints. Exam is markable patient appearing uncomfortable. Abdomen is distended tympanitic. Bowel sounds are diminished. There is no tinkling bowel sounds. Heart lung exams unremarkable Medical Decision Making with history of bowel obstruction and history of pseudoobstruction, Ethel syndrome we will obtain CT without contrast as he has allergy to contrast. Blood work was obtained as well to assess electrolytes, renal function, white count. Other additions or changes: [None] Lab Data Attestation: I reviewed the patient's lab results. Lab results narrative: CBC is unremarkable. Basic metabolic panel is unremarkable. Labs: Laboratory Results - last 24 hr 06/04/22 06/04/22 18:15 18:15 WBC 9.2 RBC 5.17 Hgb 15.4 Hct 45.9 MCV 88.8 MCH 29.8 MCHC 33.6 RDW Std Deviation 41.6 RDW Coeff of Bianka 12.9 Plt Count 222 MPV 10.0 Immature Gran % (Auto) 0.300 Neut % (Auto) 80.1 H Lymph % (Auto) 12.1 L Henderson % (Auto) 5.0 Eos % (Auto) 2.2 Baso % (Auto) 0.3 Absolute Neuts (auto) 7.4 Absolute Lymphs (auto) 1.12 Nucleated RBC % 0 Sodium 142 Potassium 3.9 Chloride 109 H Carbon Dioxide 26.0 Anion Gap 7 BUN 14 Creatinine 0.93 Estim Creat Clear Calc 101.39 Est GFR (MDRD) Af Amer 112 Est GFR (MDRD) Non-Af 92 BUN/Creatinine Ratio 15.0 Glucose 101 Calcium 8.7 Radiography Diagnostic Testing: Clinical Impression(s) from Imaging Studies Abdomen/Pelvis CT 06/04/22 18:24 IMPRESSION: Findings of a recurrent mid to distal small bowel obstruction, with the zone of transition within the right lower quadrant. Nonstandard communication protocol initiated. Electronically Signed: Shmuel Flynn MD at 19:21 EDT , ADDENDUM: 06/04/221950 IMPRESSION: Findings of a recurrent mid to distal small bowel obstruction, with the zone of transition within the right lower quadrant. Nonstandard communication protocol initiated. N.B. : The above Results were Read Back by Shmuel Flynn MD to SAUNDRA Becker, and understanding confirmed on 06/04/2022 19:44:13 (ET). Electronically Signed: Shmuel Flynn MD at 19:21 EDT , Treatment and Re-Evaluation :: CT confirms obstruction. NG was ordered. Hospitalist was paged for admission. Patient's blood pressure is elevated. This may be due to pain. Hospitalist requested to administer Apresoline 10 mg IV push. Discharge Plan Dx/Rx/DC Orders Clinical Impression: SBO (small bowel obstruction), Hypertension, HLD (hyperlipidemia), Bipolar disorder, Obesity Disposition Disposition: Acute Care Hospital [facility]
[2022-06-04 18:50] LABS: Anion Gap 7 (5-15); BUN 14 mg/dL (7-18); Calcium,Total 8.7 mg/dL (8.5-10.1); Chloride 109 mmol/L (98-107); Creatinine, Serum 0.93 mg/dL (0.70-1.30); EST Glomerular Filtration Rate 92 mL/min (>60); Est Glom Filt Rate - Afr Amer 112 mL/min (>60); Estimated Creatinine Clearance 101.39 ml/min; Glucose 101 mg/dL (74-106); Potassium 3.9 mmol/L (3.5-5.1); Sodium Level 142 mmol/L (136-145)
--- NOTE | 2022-06-04 20:25 | RAD_ITS ---
EXAM: XR ABDOMEN, 1 VIEW CLINICAL INDICATION: NG Insertion TECHNIQUE: Frontal supine view of the abdomen/pelvis. This report was created using oboxo report generation technology. COMPARISON: Small bowel series of 05/15/2022 FINDINGS: LOWER THORAX: Visualized lung bases are clear. GASTROINTESTINAL TRACT: The stomach is decompressed. ORGANS: Unremarkable as visualized. No organomegaly. No abnormal calcifications. BONES/JOINTS: No acute pathology. SOFT TISSUES: No acute pathology. TUBES, LINES AND DEVICES: NG tube has been inserted; the tip of the tube extends into the gastric lumen, in the region of the gastric mid-body. Sidehole of tube is not well defined on the submitted image. RAD/Abdomen Single View (Portable) IMPRESSION: Satisfactory NG tube positioning with the tube extending into the gastric body. Electronically Signed: Shmuel Flynn MD at 21:33 EDT ,
[2022-06-04] MEDS: HYDROmorphone 0.5 MG/0.5 ML SYRINGE IV (20:35)
--- NOTE | 2022-06-04 20:45 | HP.PCM_ITS ---
HPI - General General Date of Admission: 06/04/22 Date of Service: 06/04/22 Chief Complaint: Abdominal pain, nausea, emesis HPI Narrative The patient is a 46 y/o M w/ PMHx: Morbid obesity, Anxiety and Depression/Bipolar disorder, HTN, HLD, GERD, HARLEY, Hypothyroidism, Chronic pain syndrome (OA related), recent discharge 05/15/22 following admission and treatment for SBO with conservative management evaluated by general surgeon Dr. Dobbins who now re-presents to the [facility] ED on 06/04/22 with history of recurrent generalized abdominal discomfort with associated nausea and emesis starting in the early afternoon similar to his prior presentation with bowel obstruction reporting that he did follow-up with Dr. Ruvalcaba who reported narrowing and scar tissue in the small intestine demonstrated on colonoscopy. Patient reports that he did have a bowel movement this AM and ~ 3 looser bowel movements the day prior. Patient was also recently hospitalized the week prior Sunday through secondary to uncontrolled bipolar disorder with reported 1 bowel movement during his administration at that time. He normally states he takes magnesium citrate when he has onset of any of these types of symptoms but did not do at this time. Patient does report that the day prior he was at his normal baseline state of health but did have sudden onset of the loose stools with cramping. He reports that earlier in the day on day of presentation while he was in confucianism he started to have some generalized abdominal discomfort and at that time pain was 4 out of 10 in severity and more aching/cramping. He does note when it worsened he would have waves of worsening discomfort rated 8 out of 10 in severity. He currently rates his pain 5 out of 10 in severity. He notes the last time he passed any flatus was the day prior. He does state that with his recent psychiatric admission he did have medication changes and requested that the update us on these specific medication updates. Work-up in the ED included T97.9, heart rate 54, BP 194/125, respiratory rate 18, 97% on room air with most recent vital signs with heart rate 65, BP 211/116, respiratory rate 18, 98% on room air, CBC with WC 9.2, hemoglobin 15.4, platelet 222 without jamarcus ed shift, BMP not marked appearing aside chloride 109, CT abdomen and pelvis with findings of recurrent mid to distal small bowel obstruction with possible zone of transition within the right lower quadrant. In ED patient administered Zofran 4 mg IV x1, morphine 8 mg IV x1 and morphine 0.5 mg x 1 as well as normal saline maintenance IV fluid at 125 mils per hour. Patient also with NG tube placement in the ED with pending KUB for placement Verification upon requested evaluation of patient. [facility] Medical History (Updated 06/04/22 @ 21:[address] Monty Ray MD) Anxiety Arthritis Bipolar disorder Chronic pain DVT (deep venous thrombosis) GERD (gastroesophageal reflux disease) History of small bowel obstruction HLD (hyperlipidemia) Hypertension Hypothyroidism Non-smoker Obesity Sleep apnea Wears glasses Home Medications diclofenac sodium 50 mg tablet,delayed release 75 mg PO DAILY ARTHRITIS 04/11/15 [History Last Taken 04/10/15 08:00] lorazepam 1 mg tablet 1 tab PO PRN PRN Anxiety 11/07/17 [History Last Taken Unknown] quetiapine 25 mg tablet (Seroquel) 50 mg PO QHS BIPOLAR 05/26/21 [History Last Taken Unknown] losartan 50 mg tablet 50 mg PO DAILY BLOOD PRESSURE 05/14/22 [History Last Taken Unknown] quetiapine 25 mg tablet (Seroquel) 25 mg PO DAILY BIPOLAR 05/14/22 [History Last Taken Unknown] hydroxyzine pamoate 50 mg capsule 50 mg PO PRN PRN Anxiety 06/04/22 [History Last Taken Unknown] mirtazapine 15 mg tablet 15 mg PO DAILY DEPRESSION 06/04/22 [History Last Taken Unknown] Allergy/AdvReac Type Severity Reaction Status Date / Time Iodinated Contrast Media Allergy Itching Verified 06/04/22 17:39 propoxyphene napsylate Allergy Other Verified 06/04/22 17:39 [From Darcet-N 100] Family History Father Heart disease Hypertension Hyperlipidemia Seizures Depression Mother Heart disease Hyperlipidemia Hypertension Anxiety Arthritis defect Depression Myocardial infarction Grandfather Heart disease Myocardial infarction Unknown Alcoholism Surgical History History of back surgery History of knee surgery Social History Smoking Status: Never smoker alcohol intake: current substance use type: does not use what type of physical activity do you participate in: other frequency: 5-6 times per week ROS ROS Narrative Admission Review of Systems: CONSTITUTIONAL: No weight loss, fever, chills, + weakness or fatigue. HEENT: Eyes: No visual loss, blurred vision, double vision or yellow sclerae. Ears, Nose, Throat: No hearing loss, sneezing, congestion, runny nose or sore throat. SKIN: No rash or itching, lesions, wounds. CARDIOVASCULAR: No chest pain, chest pressure or chest discomfort, palpitations, edema, orthopnea, syncopal events. RESPIRATORY: No shortness of breath, cough or sputum, wheezing, hemoptysis. GASTROINTESTINAL: + anorexia, nausea, vomiting, diarrhea, abdominal pain, No melena, BRBPR. GENITOURINARY: No dysuria, frequency, urgency or retention. NEUROLOGICAL: No headache, dizziness, syncope, paralysis, ataxia, numbness or tingling in the extremities, focal weakness, change in bowel or bladder control, seizure. MUSCULOSKELETAL: + muscle, back pain, joint pain or stiffness. HEMATOLOGIC: No anemia, bleeding or bruising. LYMPHATICS: No enlarged nodes. No history of splenectomy. PSYCHIATRIC: + history of depression or anxiety. ENDOCRINOLOGIC: No reports of sweating, cold or heat intolerance. No polyuria or polydipsia. ALLERGIES: No history of asthma, hives, eczema or rhinitis. Vital Signs Vital Signs Vital Signs: 06/04/22 17:37 06/04/22 19:30 06/04/22 20:29 Temperature 97.9 F 98.5 F Temperature Source Temporal Oral Pulse Rate 54 L 73 65 Respiratory Rate 18 18 18 Blood Pressure 194/125 H 201/114 H 211/116 H Blood Pressure Mean 148 143 147 Pulse Ox 97 98 98 Oxygen Delivery Method Room Air Room Air Room Air Weight Weight: 273 lb Body Mass Index (BMI) 39.2 Physical Exam Narrative Physical Examination: General: Awake, alert, oriented x 3 and cooperative, seated upright in the ED bed, fatigued, NG tube recently placed, notes pain 5 out of 10 in severity. Skin: Normal color, normal turgor, no icterus, no cyanosis. HEENT: AT/NC, EOMI, PERRLA, dry MM, NG tube in place, no carotid bruits or JVD noted; however, thickened neck makes evaluation. Lungs: Mildly diminished, greater bases, proper effort, no rales, ronchi or wheezing. Heart: Currently regular rate and rhythm; no gallop, rub audible. Abdomen: Soft, obese, focal discomfort just proximal of the umbilicus with no guarding or specific rebound, appears mildly distended, absent bowel sounds diffusely, no obvious HSM although pain makes evaluation difficult. Extremities: No cyanosis, clubbing, or edema. Neurological: Patient awake, alert, oriented as noted, cognitive function intact; pupils equally reactive to light and accommodation, cranial nerves II- XII grossly normal, moving all 4 extremities, no focal deficits, strength moderately global decreased secondary to acute presentation. Psychiatric: Affect appears flat, fatigued, recent psychiatric admission per discussion with patient/ with medication changes with underlying anxiety and depression/bipolar disorder. Results Lab / Micro Data Result Diagrams: 06/04/22 18:15 06/04/22 18:15 Labs: Laboratory Results - last 24 hr 06/04/22 18:15: WBC 9.2, RBC 5.17, Hgb 15.4, Hct 45.9, MCV 88.8, MCH 29.8, MCHC 33.6, RDW Std Deviation 41.6, RDW Coeff of Bianka 12.9, Plt Count 222, MPV 10.0, Immature Gran % (Auto) 0.300, Neut % (Auto) 80.1 H, Lymph % (Auto) 12.1 L, Winkler % (Auto) 5.0, Eos % (Auto) 2.2, Baso % (Auto) 0.3, Absolute Neuts (auto) 7.4, Absolute Lymphs (auto) 1.12, Nucleated RBC % 0 06/04/22 18:15: Sodium 142, Potassium 3.9, Chloride 109 H, Carbon Dioxide 26.0, Anion Gap 7, BUN 14, Creatinine 0.93, Estim Creat Clear Calc 101.39, Est GFR (MDRD) Af Amer 112, Est GFR (MDRD) Non-Af 92, BUN/Creatinine Ratio 15.0, Glucose 101, Calcium 8.7 Radiology Impression Abdomen/Pelvis CT 06/04/22 18:24 IMPRESSION: Findings of a recurrent mid to distal small bowel obstruction, with the zone of transition within the right lower quadrant. Nonstandard communication protocol initiated. Electronically Signed: Shmuel Flynn MD at 19:21 EDT , ADDENDUM: 06/04/221950 IMPRESSION: Findings of a recurrent mid to distal small bowel obstruction, with the zone of transition within the right lower quadrant. Nonstandard communication protocol initiated. N.B. : The above Results were Read Back by Shmuel Flynn MD to SAUNDRA Becker, and understanding confirmed on 06/04/2022 19:44:13 (ET). Electronically Signed: Shmuel Flynn MD at 19:21 EDT , Assessment & Plan Assessment/Plan (1) SBO (small bowel obstruction): PLAN: Plan The patient is a 46 y/o M w/ PMHx: Obesity, Anxiety and Depression/Bipolar disorder, HTN, HLD, GERD, HARLEY, Hypothyroidism, Chronic pain syndrome (OA related), recent discharge 05/15/22 following admission and treatment for SBO with conservative management evaluated by general surgeon Dr. Dobbins who now re-presents to the [facility] ED on 06/04/22 with history of recurrent generalized abdominal discomfort with associated nausea and emesis starting in the early afternoon similar to his prior presentation with bowel obstruction reporting that he did follow-up with Dr. Ruvalcaba who reported narrowing and scar tissue in the small intestine demonstrated on colonoscopy. #1. Abdominal pain, nausea, emesis w/ SBO, recurrent with history of reported narrowing and scar tissue of the small intestine demonstrated on prior colonoscopy per gastroenterology: Will admit to PCU given significant hypertension and potential necessity for agents unable to be utilized on medical surgical floor, will maintain on IVFs, continue NGT to suction, strict I&Os, IV pain/anti-emetics PRN, serial KUB as needed to monitor bowel function, Famotidine IV, maintain NPO on bowel rest. General surgery consulted and pending. #2. Hypertension, Uncontrolled, possibly primarily pain related given acute presentation #1: Holding all oral medications given presentation with NG tube as noted, as needed IV hydralazine and will schedule IV Vasotec, deferring any beta-sweetie given bradycardia. #3. Hyperlipidemia: Per current list not on regimen, defer to outpatient. #4. Bipolar disorder with recent psychiatric hospitalization: Patient with recent psychiatric hospitalization Sunday through the week prior, at this time unfortunately given his presentation holding psychiatric regimen, will need aggressive early follow-up and counseling as well as reinitiation of his medication regimen immediately once appropriate, awaiting clarification of these new medication updates per spouse. We will have IV as needed Ativan for sign ificant anxiety. #5. Obesity: Weight loss and lifestyle changes encouraged. #6. HARLEY: Given NG tube placement will defer CPAP usage at this time. #7. Hypothyroidism: Noted in the history however per current list patient is not on any regimen, will clarify, TSH and free T4 requested. #8. DVT prophylaxis: Lovenox. Admission Evaluation Time spent evaluating chart, patient history, patient evaluation, care planning and discussion with specialists: 60 minutes. Charges/Coding Visit Charges Inpatient E&M: 13682 Init Hosp L2
[2022-06-04] MEDS: hydrALAZINE 20 MG/ML Vial 10 MG IV (21:35)
[2022-06-04] MEDS: 0.9% Saline Lock 10 ML Syringe IV (23:14)
[2022-06-04] MEDS: Enalaprilat 1.25 MG/ML Vial 0.625 MG IV (23:15)
[2022-06-05] VITALS (9 sets, daily range): BP systolic 137–176; BP diastolic 72–111; PULSE 59–72; RESP 14–18; TEMP 36.4–36.9; O2SAT 95–98; BMI 39.6
[2022-06-05] MEDS: HYDROmorphone 1 MG/ML Syringe IV (00:11)
[2022-06-05] MEDS: Enalaprilat 1.25 MG/ML Vial 0.625 MG IV ×3 (05:44→17:33)
[2022-06-05] MEDS: 0.9% Normal Saline 1,000 ML 125 ML IV ×2 (05:44→14:38)
--- NOTE | 2022-06-05 05:55 | RAD_ITS ---
INDICATION: Small bowel obstruction EXAMINATION/TECHNIQUE: X-RAY - portable supine AP XR Abdomen 1 View COMPARISON: Abdominal radiograph from approximately 10 hours prior. FINDINGS: Enteric tube tip within gastric lumen. No significant bowel dilatation demonstrated. Vasectomy clips and small calcified pelvic phleboliths noted. Imaged lung bases are unremarkable. Slightly elevated right hemidiaphragm. Lower lumbar degenerative disc space narrowing noted. RAD/Abdomen Single View (Portable) IMPRESSION: Non-obstructive bowel gas pattern. Electronically Signed: Miles Higginbotham MD at 7:19 EDT ,
[2022-06-05 06:41] LABS: Absolute Lymphocyte Count 1.16 X10^3/uL (0.83-4.51); Absolute Neutrophil Count 5.6 X10^3/uL (2.0-7.7); Basophil# 0.01 X10^3/uL; Basophil% 0.1 % (0-1); Eosinophil# 0.17 X10^3/uL; Eosinophils% 2.3 % (0-5); Hematocrit 43.7 % (40-54); Hemoglobin 14.6 g/dL (13.0-16.5); Lymphocyte # 1.16 X10^3/ul (0.83-4.51); Lymphocyte % 15.6 % (19-41); Mean Corp Hgb Conc 33.4 g/dL (32-36); Mean Corpuscular Hgb 29.9 pg (27.0-32.0); Mean Corpuscular Volume 89.5 fL (80-94); Mean Platelet Vol. 9.7 fl (6.2-12.0); Monocyte# 0.43 X10^3/uL; Monocyte% 5.8 % (0-10); NRBC Flagged by Analyzer 0 % (0-5); Neutrophil # 5.64 X10^3/uL (2.7-7.7); Neutrophil % 75.9 % (47-70); Platelet Count 222 K/mm3 (150-450); RBC Distribution Width CV 13.1 % (11.6-14.6); RBC Distribution Width SD 42.6 fl (35.1-43.9); Red Blood Count 4.88 M/mm3 (4.6-6.2); White Blood Count 7.4 K/mm3 (4.4-11.0)
[2022-06-05 07:07] LABS: ALB/GLOB Ratio 1.1 RATIO (0.9-2.4); AST(SGOT) 13 U/L (15-37); Alanine Aminotransfer ALT/SGPT 21 U/L (16-61); Albumin, Serum 3.3 g/dL (3.2-5.0); Alkaline Phosphatase 62 U/L (45-117); Anion Gap 6 (5-15); BUN 10 mg/dL (7-18); BUN/Creat Ratio 11.8 RATIO (10-20); Calcium,Total 8.4 mg/dL (8.5-10.1); Chloride 108 mmol/L (98-107); Creatinine, Serum 0.85 mg/dL (0.70-1.30); EST Glomerular Filtration Rate 103 mL/min (>60); Est Glom Filt Rate - Afr Amer 124 mL/min (>60); Estimated Creatinine Clearance 110.93 ml/min; Globulin 2.9 g/dL (2.2-4.2); Glucose 109 mg/dL (74-106); Potassium 3.7 mmol/L (3.5-5.1); Protein, Total 6.2 g/dL (6.4-8.2); Sodium Level 140 mmol/L (136-145)
--- NOTE | 2022-06-05 10:03 | EX.PCM.CON.S ---
Assessment & Plan Assessment/Plan (1) SBO (small bowel obstruction): PLAN: Is a 46-year-old male who is admitted for his third time with suspected recurrent small bowel obstructions. He has no prior surgical history and, although he has a hernia showing on CT imaging, this does not involve his small bowel. Further, I do not see any evidence of a small bowel mass. Patient's plain films this morning were encouraging that this likely represents a partial small bowel obstruction given the presence of air within the colon. I have also introduced to Mr. Marinelli that this may not be a mechanical obstruction of any sort, but rather a physiologic response to his psychiatric medications and his poor water intake. When exploring this possibility with Mr. Marinelli, he does admit to having his Seroquel dosage increased just prior to his last admission and then states that he had mirtazapine added within the last week. His chimes in that she was surprised when he started develop symptoms as she noted that he had been committed to the dietary restrictions imposed by gastroenterology to limit any fibrous foods. I have ordered a small bowel series to try to identify any areas of concern, but if patient passes this trial without hold-up of contrast, I believe it would be reasonable to assess whether he would be a candidate for any other antipsychotic medications with less anticholinergic effect. ? Continue n.p.o. with NG tube to low intermittent wall suction ? Follow-up small bowel follow-through ? Trend abdominal exams HPI Consult Data Date of Consult: 06/05/22 HPI Narrative Reason for Consultation: Small bowel obstruction HPI Narrative: FABIÁN MARINELLI, is a 46 M who presents to [facility] with less than 24 hours of acute onset abdominal discomfort, nausea, vomiting, and chills. He reports this is his third admission for this indication. He states once he started to feel the symptoms he presented right away to him. His ER work-up was notable for CT imaging that demonstrated small bowel dilatation greater than 4 cm with apparent transition point in the right lower quadrant. Nasogastric tube was placed in the emergency department and surgery was consulted for assistance with management. This morning patient denies any return of bowel function with either flatus or bowel movement. He states, however, that he feels as though he may be getting ready to have one. He reports decreased abdominal discomfort. Patient denies any prior surgical intervention. He confirms that he was evaluated by gastroenterology for this issue, but was not told anything more than that he had thickening of the small bowel. He carries a diagnosis of bipolar disorder and reports that his Seroquel dosage was increased approximately a month ago and mirtazapine was added in the last couple of weeks. He admits to poor water intake in general. [facility] Medical History (Updated 06/04/22 @ 21:[address] Monty Ray MD) Anxiety Arthritis Bipolar disorder Chronic pain DVT (deep venous thrombosis) GERD (gastroesophageal reflux disease) History of small bowel obstruction HLD (hyperlipidemia) Hypertension Hypothyroidism Non-smoker Obesity Sleep apnea Wears glasses Home Medications diclofenac sodium 50 mg tablet,delayed release 75 mg PO DAILY ARTHRITIS 04/11/15 [History Last Taken 04/10/15 08:00] lorazepam 1 mg tablet 1 tab PO PRN PRN Anxiety 11/07/17 [History Last Taken Unknown] quetiapine 25 mg tablet (Seroquel) 50 mg PO QHS BIPOLAR 05/26/21 [History Last Taken Unknown] losartan 50 mg tablet 50 mg PO DAILY BLOOD PRESSURE 05/14/22 [History Last Taken Unknown] quetiapine 25 mg tablet (Seroquel) 25 mg PO DAILY BIPOLAR 05/14/22 [History Last Taken Unknown] hydroxyzine pamoate 50 mg capsule 50 mg PO PRN PRN Anxiety 06/04/22 [History Last Taken Unknown] mirtazapine 15 mg tablet 15 mg PO DAILY DEPRESSION 06/04/22 [History Last Taken Unknown] Allergy/AdvReac Type Severity Reaction Status Date / Time Iodinated Contrast Media Allergy Itching Verified 06/04/22 17:39 propoxyphene napsylate Allergy Other Verified 06/04/22 17:39 [From [facility]-N 100] Family History Father Heart disease Hypertension Hyperlipidemia Seizures Depression Mother Heart disease Hyperlipidemia Hypertension Anxiety Arthritis defect Depression Myocardial infarction Grandfather Heart disease Myocardial infarction Unknown Alcoholism Surgical History History of back surgery History of knee surgery Social History Smoking Status: Never smoker alcohol intake: current substance use type: does not use what type of physical activity do you participate in: other frequency: 5-6 times per week Physical Exam Const alert, oriented x3 and no apparent distress Resp normal respiratory effort GI GI Narrative: Mildly distended, no scars, soft, nontender to palpation. Nasogastric tube in place with watery/bilious output approximately 300 mL Lab / Micro Data Result Diagrams: 06/05/22 05:47 06/05/22 05:47 Labs: Laboratory Results - last 24 hr 06/04/22 18:15: WBC 9.2, RBC 5.17, Hgb 15.4, Hct 45.9, MCV 88.8, MCH 29.8, MCHC 33.6, RDW Std Deviation 41.6, RDW Coeff of Bianka 12.9, Plt Count 222, MPV 10.0, Immature Gran % (Auto) 0.300, Neut % (Auto) 80.1 H, Lymph % (Auto) 12.1 L, Sutton % (Auto) 5.0, Eos % (Auto) 2.2, Baso % (Auto) 0.3, Absolute Neuts (auto) 7.4, Absolute Lymphs (auto) 1.12, Nucleated RBC % 0 06/04/22 18:15: Sodium 142, Potassium 3.9, Chloride 109 H, Carbon Dioxide 26.0, Anion Gap 7, BUN 14, Creatinine 0.93, Estim Creat Clear Calc 101.39, Est GFR (MDRD) Af Amer 112, Est GFR (MDRD) Non-Af 92, BUN/Creatinine Ratio 15.0, Glucose 101, Calcium 8.7 06/05/22 05:47: WBC 7.4, RBC 4.88, Hgb 14.6, Hct 43.7, MCV 89.5, MCH 29.9, MCHC 33.4, RDW Std Deviation 42.6, RDW Coeff of Bianka 13.1, Plt Count 222, MPV 9.7, Immature Gran % (Auto) 0.300, Neut % (Auto) 75.9 H, Lymph % (Auto) 15.6 L, Sutton % (Auto) 5.8, Eos % (Auto) 2.3, Baso % (Auto) 0.1, Absolute Neuts (auto) 5.6, Absolute Lymphs (auto) 1.16, Nucleated RBC % 0 06/05/22 05:47: Sodium 140, Potassium 3.7, Chloride 108 H, Carbon Dioxide 26.0, Anion Gap 6, BUN 10, Creatinine 0.85, Estim Creat Clear Calc 110.93, Est GFR (MDRD) Af Amer 124, Est GFR (MDRD) Non-Af 103, BUN/Creatinine Ratio 11.8, Glucose 109 H, Calcium 8.4 L, Total Bilirubin 1.30 H, AST 13 L, ALT 21, Alkaline Phosphatase 62, Total Protein 6.2 L, Albumin 3.3, Globulin 2.9, Albumin/Globulin Ratio 1.1 Radiology Impression Abdomen/Pelvis CT 06/04/22 18:24 IMPRESSION: Findings of a recurrent mid to distal small bowel obstruction, with the zone of transition within the right lower quadrant. Nonstandard communication protocol initiated. Electronically Signed: Shmuel Flynn MD at 19:21 EDT , ADDENDUM: 06/04/221950 IMPRESSION: Findings of a recurrent mid to distal small bowel obstruction, with the zone of transition within the right lower quadrant. Nonstandard communication protocol initiated. N.B. : The above Results were Read Back by Shmuel Flynn MD to SAUNDRA Becker, and understanding confirmed on 06/04/2022 19:44:13 (ET). Electronically Signed: Shmuel Flynn MD at 19:21 EDT , KUB X-Ray 06/04/22 20:25 IMPRESSION: Satisfactory NG tube positioning with the tube extending into the gastric body. Electronically Signed: Shmuel Flynn MD at 21:33 EDT , KUB X-Ray 06/05/22 05:55 IMPRESSION: Non-obstructive bowel gas pattern. Electronically Signed: Miles Higginbotham MD at 7:19 EDT , Charges/Coding Visit Charges Inpatient E&M: 34319 Init Hosp L2
--- NOTE | 2022-06-05 10:10 | PN.HOSP_ITS ---
Subjective Subjective Feeling a little bit better with the NG tube in place, no issues overnight Objective Data Objective Data Vital Signs: Vital Signs Temp Pulse Resp BP Pulse Ox O2 Del Method 98.1 F 72 16 158/72 H 95 Room Air 06/05/22 08:25 06/05/22 08:25 06/05/22 08:25 06/05/22 08:25 06/05/22 09:14 06/05/22 09:14 Oxygen Delivery Method Room Air Weight: 276 lb 0.3 oz Body Mass Index (BMI) 39.6 Intake & Output: Intake and Output for Last 24 Hours 06/04/22 06/05/22 06/06/22 03:59 03:59 03:59 Intake Total 1360 / 1360 1654.17 / 1654.17 Output Total 600 / 600 500 / 500 Balance 760 / 760 1154.17 / 1154.17 Lab / Micro Data Result Diagrams: 06/05/22 05:47 06/05/22 05:47 Labs: Laboratory Results - last 24 hr 06/04/22 18:15: WBC 9.2, RBC 5.17, Hgb 15.4, Hct 45.9, MCV 88.8, MCH 29.8, MCHC 33.6, RDW Std Deviation 41.6, RDW Coeff of Bianka 12.9, Plt Count 222, MPV 10.0, Immature Gran % (Auto) 0.300, Neut % (Auto) 80.1 H, Lymph % (Auto) 12.1 L, [place] % (Auto) 5.0, Eos % (Auto) 2.2, Baso % (Auto) 0.3, Absolute Neuts (auto) 7.4, Absolute Lymphs (auto) 1.12, Nucleated RBC % 0 06/04/22 18:15: Sodium 142, Potassium 3.9, Chloride 109 H, Carbon Dioxide 26.0, Anion Gap 7, BUN 14, Creatinine 0.93, Estim Creat Clear Calc 101.39, Est GFR (MDRD) Af Amer 112, Est GFR (MDRD) Non-Af 92, BUN/Creatinine Ratio 15.0, Glucose 101, Calcium 8.7 06/05/22 05:47: WBC 7.4, RBC 4.88, Hgb 14.6, Hct 43.7, MCV 89.5, MCH 29.9, MCHC 33.4, RDW Std Deviation 42.6, RDW Coeff of Bianka 13.1, Plt Count 222, MPV 9.7, Immature Gran % (Auto) 0.300, Neut % (Auto) 75.9 H, Lymph % (Auto) 15.6 L, [place]inger % (Auto) 5.8, Eos % (Auto) 2.3, Baso % (Auto) 0.1, Absolute Neuts (auto) 5.6, Absolute Lymphs (auto) 1.16, Nucleated RBC % 0 06/05/22 05:47: Sodium 140, Potassium 3.7, Chloride 108 H, Carbon Dioxide 26.0, Anion Gap 6, BUN 10, Creatinine 0.85, Estim Creat Clear Calc 110.93, Est GFR (MDRD) Af Amer 124, Est GFR (MDRD) Non-Af 103, BUN/Creatinine Ratio 11.8, Glucose 109 H, Calcium 8.4 L, Total Bilirubin 1.30 H, AST 13 L, ALT 21, Alkaline Phosphatase 62, Total Protein 6.2 L, Albumin 3.3, Globulin 2.9, Albumin/Globulin Ratio 1.1 Radiography Diagnostic Testing: Radiology Impression Abdomen/Pelvis CT 06/04/22 18:24 IMPRESSION: Findings of a recurrent mid to distal small bowel obstruction, with the zone of transition within the right lower quadrant. Nonstandard communication protocol initiated. Electronically Signed: Shmuel Flynn MD at 19:21 EDT Reading Location ID and State: [facility] / [place] Tel , Service support , ADDENDUM: 06/04/221950 IMPRESSION: Findings of a recurrent mid to distal small bowel obstruction, with the zone of transition within the right lower quadrant. Nonstandard communication protocol initiated. N.B. : The above Results were Read Back by Shmuel Flynn MD to SAUNDRA Becker, and understanding confirmed on 06/04/2022 19:44:13 (ET). Electronically Signed: Shmuel Flynn MD at 19:21 EDT , KUB X-Ray 06/04/22 20:25 IMPRESSION: Satisfactory NG tube positioning with the tube extending into the gastric body. Electronically Signed: Shmuel Flynn MD at 21:33 EDT , KUB X-Ray 06/05/22 05:55 IMPRESSION: Non-obstructive bowel gas pattern. Electronically Signed: Miles Higginbotham MD at 7:19 EDT , Physical Exam Narrative General: Alert, Oriented x3, Cooperative, No apparent distress HEENT: Atraumatic, PERRLA, EOMI, Normocephalic Oral: Moist Mucosa Neck: Supple, No JVD Lungs: Diminished, Normal air movement, No rhonchi, No wheeze, No rales Cardiovascular: Regular rate, Regular Rhythm, Normal S1, Normal S2, No murmurs Abdomen: Soft, Non Tender, Non-Distended, No Hepato-splenomegaly Extremities: No edema, Capillary Refill Less than 3 Seconds Skin: No rashes, No breakdown Musculoskeletal: No Tenderness to Palpation of Joints or Extremities Neurological: Cranial nerves II-XII grossly intact, Motor Exam 5/5 strength throughout, Sensory exam intact to light touch and pain Psych/Mental Status: Flat, Appropriate Assessment & Plan Assessment/Plan (1) SBO (small bowel obstruction): PLAN: Plan 1. SBO versus partial SBO ? We will consult general surgery ? NG tube to low intermittent wall suction ? We will make him n.p.o. however given his recent psychiatric admission will discuss with surgery about potentially clamping his tube and providing him his mental health medications 2. HTN/HLD ? Blood pressures are currently stable, will place him on IV medications given his n.p.o. status ? We will continue to monitor 3. Bipolar disorder ? Recent psychiatric admission with medication changes ? We will hopefully be able to restart these and just clamp his NG tube 4. Obesity/HARLEY ? Will defer CPAP secondary to his NG tube ? Discussed lifestyle modifications and weight loss DVT: Lovenox Charges/Coding Visit Charges Inpatient E&M: 15562 Subs Hosp L2
--- NOTE | 2022-06-05 10:30 | RAD_ITS ---
CLINICAL HISTORY: Male, 46 years old. Small bowel obstruction PROCEDURE: Small bowel series FLUOROSCOPY TIME (if supplied): (0) minutes/seconds TECHNIQUE Limited study was performed consisting of the scalp film, mediastinum imaging following administration of Gastrografin, and 6 hour films FINDINGS:) Preliminary film demonstrates nonspecific bowel gas pattern. Nasogastric tube is seen with tip in the proximal stomach. Image obtained immediately after administering Gastrografin through nasogastric tube demonstrates collapsed stomach containing contrast with contrast being present in the duodenum and proximal jejunum all of which are not dilated. At 6 hours, contrast is noted throughout the colon without small bowel residual RAD/Small Bowel Series Only IMPRESSION: Limited visualization of small bowel but no evidence for small bowel obstruction Electronically Signed: Shayne Jaramillo MD at 17:32 EDT ,
[2022-06-05] MEDS: 0.9% Saline Lock 10 ML Syringe IV (12:35)
--- NOTE | 2022-06-05 12:53 | NURSING ---
Patient independent in room/up ad lázaro due to being off NG suction. Patient stable on own and tolerates activities well. Will continue to monitor.
--- NOTE | 2022-06-05 13:18 | CASEMGMT ---
RN CM chart review: Patient was admitted 05/14-05/15/22 for SBO. See RN CM assessment from 05/15/22. Patient was discharged to home with PCP and surgery follow-up. Patient was recently admitted to psychiatric facility from 05/29-06/01/22. Patient returned to [facility] ED on 06/04/22 for abdominal pain. Patient currently has NG tube. Patient states he was taking his meds as prescribed. Patient states he did follow-up with PCP but did not follow-up with surgery. Patient states [facility]. Patient denies needs at discharge. CM will continue to follow this patient and plan for safe discharge and assist with follow-up as needed.
[2022-06-06] MEDS: Enalaprilat 1.25 MG/ML Vial 0.625 MG IV ×3 (00:35→12:07)
[2022-06-06] MEDS: 0.9% Normal Saline 1,000 ML 125 ML IV ×2 (00:39→06:23)
[2022-06-06 02:20] VITALS: BP 148/96; PULSE 67; RESP 18; TEMP 36.6; O2SAT 98
[2022-06-06 04:00] VITALS: BP 148/96; PULSE 65; RESP 15; TEMP 36.7; O2SAT 98
[2022-06-06 06:00] VITALS: BMI 38.8
[2022-06-06 06:08] LABS: Absolute Lymphocyte Count 1.57 X10^3/uL (0.83-4.51); Basophil# 0.03 X10^3/uL; Basophil% 0.5 % (0-1); Eosinophil# 0.43 X10^3/uL; Eosinophils% 7.8 % (0-5); Hematocrit 41.3 % (40-54); Hemoglobin 13.8 g/dL (13.0-16.5); Lymphocyte # 1.57 X10^3/ul (0.83-4.51); Lymphocyte % 28.5 % (19-41); Mean Corp Hgb Conc 33.4 g/dL (32-36); Mean Corpuscular Hgb 30.1 pg (27.0-32.0); Mean Corpuscular Volume 90.2 fL (80-94); Mean Platelet Vol. 9.9 fl (6.2-12.0); Monocyte# 0.45 X10^3/uL; Monocyte% 8.2 % (0-10); NRBC Flagged by Analyzer 0 % (0-5); Neutrophil # 3.01 X10^3/uL (2.7-7.7); Neutrophil % 54.8 % (47-70); Platelet Count 194 K/mm3 (150-450); RBC Distribution Width SD 42.5 fl (35.1-43.9); Red Blood Count 4.58 M/mm3 (4.6-6.2); White Blood Count 5.5 K/mm3 (4.4-11.0)
[2022-06-06 06:27] LABS: Anion Gap 4 (5-15); BUN 9 mg/dL (7-18); BUN/Creat Ratio 8.7 RATIO (10-20); Calcium,Total 8.5 mg/dL (8.5-10.1); Chloride 109 mmol/L (98-107); Creatinine, Serum 1.03 mg/dL (0.70-1.30); EST Glomerular Filtration Rate 82 mL/min (>60); Est Glom Filt Rate - Afr Amer 99 mL/min (>60); Estimated Creatinine Clearance 91.55 ml/min; Glucose 89 mg/dL (74-106); Potassium 3.7 mmol/L (3.5-5.1); Sodium Level 141 mmol/L (136-145)
[2022-06-06 08:07] VITALS: BP 122/87; PULSE 75; RESP 15; TEMP 36.6; O2SAT 100
--- NOTE | 2022-06-06 08:33 | PCM.PN.SRG ---
Subjective Subjective Patient seen and examined during AM rounds. He reports significant improvement in his abdominal discomfort and complains of no pain. He confirms that he does have an appetite this morning and is tired of the broth already. Objective Data Objective Data Vital Signs: Vital Signs Temp Pulse Resp BP Pulse Ox O2 Del Method 97.8 F 75 15 122/87 H 100 Room Air 06/06/22 08:07 06/06/22 08:07 06/06/22 08:07 06/06/22 08:07 06/06/22 08:07 06/06/22 08:07 Oxygen Delivery Method Room Air Weight: 270 lb 11.642 oz Body Mass Index (BMI) 38.8 Intake & Output: Intake and Output for Last 24 Hours 06/04/22 06/05/22 06/06/22 23:59 23:59 23:59 Intake Total 3497.50 / 3497.50 2072.92 / 2072.92 Output Total 1400 / 1700 300 / 300 Balance 2097.50 / 1797.50 1772.92 / 1772.92 Lab / Micro Data Result Diagrams: 06/06/22 05:14 06/06/22 05:14 Labs: Laboratory Results - last 24 hr 06/06/22 05:14: WBC 5.5, RBC 4.58 L, Hgb 13.8, Hct 41.3, MCV 90.2, MCH 30.1, MCHC 33.4, RDW Std Deviation 42.5, RDW Coeff of Bianka 13.0, Plt Count 194, MPV 9.9, Immature Gran % (Auto) 0.200, Neut % (Auto) 54.8, Lymph % (Auto) 28.5, [place] % (Auto) 8.2, Eos % (Auto) 7.8 H, Baso % (Auto) 0.5, Absolute Neuts (auto) 3.0, Absolute Lymphs (auto) 1.57, Nucleated RBC % 0 06/06/22 05:14: Sodium 141, Potassium 3.7, Chloride 109 H, Carbon Dioxide 28.0, Anion Gap 4 L, BUN 9, Creatinine 1.03, Estim Creat Clear Calc 91.55, Est GFR (MDRD) Af Amer 99, Est GFR (MDRD) Non-Af 82, BUN/Creatinine Ratio 8.7 L, Glucose 89, Calcium 8.5 Radiography Diagnostic Testing: Radiology Impression Small Bowel X-Ray 06/05/22 10:30 IMPRESSION: Limited visualization of small bowel but no evidence for small bowel obstruction Electronically Signed: Shayne Jaramillo MD at 17:32 EDT Reading Location ID and State: [facility] / [place] , Service support , Physical Exam Const oriented x3 and no apparent distress Resp normal respiratory effort GI GI Narrative: Nondistended, soft, nontender to palpation x4 quadrants Assessment & Plan Assessment/Plan (1) SBO (small bowel obstruction): PLAN: Is a 46-year-old male who is admitted for his third time with suspected recurrent small bowel obstructions. He has no prior surgical history and, although he has a hernia showing on CT imaging, this does not involve his small bowel. Further, I do not see any evidence of a small bowel mass. Patient completed small bowel follow-through yesterday without signs of obstruction and normal transit time demonstrated. I discussed with hospitalist service my suspicion for possible anticholinergic effects from patient's psychiatric medications. It is currently their opinion that the dosage is insufficient to cause the anticholinergic effects that would lead to patient's admission. I do also understand that options would be limited for treatment of the patient's bipolar diagnosis if considering alternatives. We therefore resolved to try patient on a regular bowel regimen. This was discussed with patient at bedside and he states he is committed to trialing it. We also discussed follow-up with gastroenterology since he has previously established care there and allow them to weigh in based on his current admission. ? Advance to soft, low fiber diet; if patient tolerates he would be cleared to discharge from a surgical standpoint ? Small bowel follow-through did not demonstrate a mechanical obstruction ? Upon hospital discharge recommend soft, low fiber diet for at least 2 weeks post discharge and daily MiraLAX. Would also agree with follow-up with gastroenterology Charges/Coding Visit Charges Inpatient E&M: 41052 Subs Hosp L2
[2022-06-06 08:36] VITALS: O2SAT 96
[2022-06-06] MEDS: Polyethylene Glycol 3350 17 GM PACKET PO (09:43)
[2022-06-06] MEDS: Senna/Docusate Sodium 1 Tablet PO (09:43)
[2022-06-06] MEDS: QUEtiapine 25 MG Tablet PO (09:43)
[2022-06-06] MEDS: 0.9% Saline Lock 10 ML Syringe IV (12:08)
--- NOTE | 2022-06-06 13:35 | DCINST_ITS ---
Discharge Instructions Diet Discharge Diet: Low fat / Low cholesterol Activity Discharge Activity: Return to Normal Activity Dressing / Incision Call your doctor if you observe: Fever of 101 or Higher, Shortness of breath, Dizziness, Fainting spells, Swelling in the ankles, Chest pain and Increased palpitations (irregular heartbeat) Follow Up Care Test Results: Test results from this visit will be discussed in further detail at your follow- up appointment, if applicable. Discharge Plan Admission Admit Date/Time: 06/04/22 20:46 Attending Provider: Petr Ro Primary Care Provider: Ellen Lindsay Consulting Providers: Akhil Sorto ; Tamara Del Cid Discharge Orders/Prescriptions Prescriptions: New polyethylene glycol 3350 17 gram Powder In Packet 17 g PO DAILY 30 Days Qty: 30 0RF sennosides-docusate sodium [Stool Softener-Stimulant Laxat] 8.6-50 mg Tablet 1 tab PO DAILY 30 Days Qty: 30 0RF Continued diclofenac sodium 50 MG tablet 75 mg PO DAILY Label Comments: pain lorazepam 1 MG tablet 1 tab PO PRN PRN (Reason: Anxiety) Label Comments: quetiapine [Seroquel] 25 mg tablet 50 mg PO QHS Label Comments: TAKE 1 TABLET BY MOUTH ONCE DAILY AT BEDTIME losartan 50 mg tablet 50 mg PO DAILY Label Comments: TAKE 1 TABLET BY MOUTH ONCE DAILY quetiapine [Seroquel] 25 mg Tablet 25 mg PO DAILY hydroxyzine pamoate 50 mg capsule 50 mg PO PRN PRN (Reason: Anxiety) Label Comments: TAKE 1 CAPSULE BY MOUTH EVERY 6 HOURS NEEDED FOR ANXIETY mirtazapine 15 mg tablet 15 mg PO DAILY Label Comments: TAKE 1 TABLET BY MOUTH NIGHTLY Referrals / Follow Up: Ellen Lindsay DO [Primary Care Provider] - Within 1 Week Akhil Sorto MD [Med Staff - Active Staff] - Within 3 Months Disposition Disposition (needs filled in before D/C Order can be placed): Home, Self Care
--- NOTE | 2022-06-06 13:40 | PCM.DC.SUM ---
Providers Date of Admission: 06/04/22 Primary Care Physician: Dr. Ellen Lindsay DO Consultations 06/04/22 22:06 Consult: General Surgery Routine Consulting Provider: Akhil Sorto Reason for Consult: Recurrent SBO EMERGENT Consult: No MD Notified: Yes Date Notified: 06/04/22 Time Notified: 20:49 Method of Notification: Text Reason For Visit: SBO, UNCONTROLLED HTN Diagnosis Discharge Diagnosis (1) SBO (small bowel obstruction): Status: Acute Code(s): K56.609 - Unspecified intestinal obstruction, unspecified as to partial versus complete obstruction Medications at Discharge Home Medications diclofenac sodium 50 mg tablet,delayed release 75 mg PO DAILY ARTHRITIS 04/11/15 lorazepam 1 mg tablet 1 tab PO PRN PRN Anxiety 11/07/17 quetiapine 25 mg tablet (Seroquel) 50 mg PO QHS BIPOLAR 05/26/21 losartan 50 mg tablet 50 mg PO DAILY BLOOD PRESSURE 05/14/22 quetiapine 25 mg tablet (Seroquel) 25 mg PO DAILY BIPOLAR 05/14/22 hydroxyzine pamoate 50 mg capsule 50 mg PO PRN PRN Anxiety 06/04/22 mirtazapine 15 mg tablet 15 mg PO DAILY DEPRESSION 06/04/22 polyethylene glycol 3350 17 gram oral powder packet 17 g PO DAILY 30 days #30 ea 06/06/22 sennosides 8.6 mg-docusate sodium 50 mg tablet (Stool Softener-Stimulant Laxative) 1 tab PO DAILY 30 days #30 tabs 06/06/22 Hospital Course Operations None Procedures None Summary of Care Provided Minutes Spent on Discharge: 38 Hospital Course: Per HPI: The patient is a 46 y/o M w/ PMHx: Morbid obesity, Anxiety and Depression/Bipolar disorder, HTN, HLD, GERD, HARLEY, Hypothyroidism, Chronic pain syndrome (OA related), recent discharge 05/15/22 following admission and treatment for SBO with conservative management evaluated by general surgeon Dr. Dobbins who now re-presents to the [facility] ED on 06/04/22 with history of recurrent generalized abdominal discomfort with associated nausea and emesis starting in the early afternoon similar to his prior presentation with bowel obstruction reporting that he did follow-up with Dr. Ruvalcaba who reported narrowing and scar tissue in the small intestine demonstrated on colonoscopy.? Patient reports that he did have a bowel movement this AM and ~ 3 looser bowel movements the day prior.? Patient was also recently hospitalized the week prior Sunday through secondary to uncontrolled bipolar disorder with reported 1 bowel movement during his administration at that time.? He normally states he takes magnesium citrate when he has onset of any of these types of symptoms but did not do at this time.? Patient does report that the day prior he was at his normal baseline state of health but did have sudden onset of the loose stools with cramping.? He reports that earlier in the day on day of presentation while he was in [facility] he started to have some generalized abdominal discomfort and at that time pain was 4 out of 10 in severity and more aching/cramping.? He does note when it worsened he would have waves of worsening discomfort rated 8 out of 10 in severity.? He currently rates his pain 5 out of 10 in severity.? He notes the last time he passed any flatus was the day prior.? He does state that with his recent psychiatric admission he did have medication changes and requested that the update us on these specific medication updates.? Work-up in the ED included T97.9, heart rate 54, BP 194/125, respiratory rate 18, 97% on room air with most recent vital signs with heart rate 65, BP 211/116, respiratory rate 18, 98% on room air, CBC with WC 9.2, hemoglobin 15.4, platelet 222 without marked shift, BMP not marked appearing aside chloride 109, CT abdomen and pelvis with findings of recurrent mid to distal small bowel obstruction with possible zone of transition within the right lower quadrant.? In ED patient administered Zofran 4 mg IV x1, morphine 8 mg IV x1 and morphine 0.5 mg x 1 as well as normal saline maintenance IV fluid at 125 mils per hour.? Patient also with NG tube placement in the ED with pending KUB for placement Verification upon requested evaluation of patient. Hospital Course: 1. Functional small bowel obstruction?46-year-old male with a history of mental health issues presented to the hospital after being hospitalized in a psychiatric unit where his Seroquel was increased. He was having abdominal pain and had what appeared to be a small bowel obstruction. In discussion with general surgery they felt this was more of a functional obstruction as he has never had abdominal surgery or hernia and in each case that he has had this issue its been in a different location so they do not feel like there is a cancer risk. Initially there was some concern for anticholinergic effect from his medication however his Seroquel is at a very low dose and at this point I do put priority on his mental health versus his GI tract. Therefore we maintained his dosing on his Seroquel, yesterday his NG tube was removed and today he was passing flatus and had some bowel movements. He was started on daily MiraLAX as well as a daily Senokot as a bowel regimen. I discussed with him the plan for possible discharge today he expressed understanding of the risk benefits going home and wanted to go home today. I do recommend he continue with the bowel regimen and follow-up with the PCP in 3 to 5 days and follow-up with general surgery in the next couple of months. 2. Hypertension, hyperlipidemia, bipolar disorder, obesity, HARLEY are all chronic medical conditions which complicate his care. His home medications were continued where appropriate Physical Exam Narrative General: Alert, Oriented x3, Cooperative, No apparent distress HEENT: Atraumatic, PERRLA, EOMI, Normocephalic Oral: Moist Mucosa Neck: Supple, No JVD Lungs: Diminished, Normal air movement, No rhonchi, No wheeze, No rales Cardiovascular: Regular rate, Regular Rhythm, Normal S1, Normal S2, No murmurs Abdomen: Soft, Non Tender, Non-Distended, No Hepato-splenomegaly Extremities: No edema, Capillary Refill Less than 3 Seconds Skin: No rashes, No breakdown Musculoskeletal: No Tenderness to Palpation of Joints or Extremities Neurological: Cranial nerves II-XII grossly intact, Motor Exam 5/5 strength throughout, Sensory exam intact to light touch and pain Psych/Mental Status: Normal affect, Appropriate Weight / BMI Weight Weight: 270 lb 11.642 oz Body Mass Index (BMI) 38.8 ABG / Lab / Microbiology Data Result Diagrams: 06/06/22 05:14 06/06/22 05:14 Laboratory: Laboratory Results - last 24 hr 06/06/22 05:14: WBC 5.5, RBC 4.58 L, Hgb 13.8, Hct 41.3, MCV 90.2, MCH 30.1, MCHC 33.4, RDW Std Deviation 42.5, RDW Coeff of Bianka 13.0, Plt Count 194, MPV 9.9, Immature Gran % (Auto) 0.200, Neut % (Auto) 54.8, Lymph % (Auto) 28.5, [place] % (Auto) 8.2, Eos % (Auto) 7.8 H, Baso % (Auto) 0.5, Absolute Neuts (auto) 3.0, Absolute Lymphs (auto) 1.57, Nucleated RBC % 0 06/06/22 05:14: Sodium 141, Potassium 3.7, Chloride 109 H, Carbon Dioxide 28.0, Anion Gap 4 L, BUN 9, Creatinine 1.03, Estim Creat Clear Calc 91.55, Est GFR (MDRD) Af Amer 99, Est GFR (MDRD) Non-Af 82, BUN/Creatinine Ratio 8.7 L, Glucose 89, Calcium 8.5 Radiography Diagnostic Testing: Radiology Impression Small Bowel X-Ray 06/05/22 10:30 IMPRESSION: Limited visualization of small bowel but no evidence for small bowel obstruction Electronically Signed: Shayne Jaramillo MD at 17:32 EDT Reading Location ID and State: [address] [place] [address] , Service support , D/C Instructions Discharge Diet: Low fat / Low cholesterol Call your doctor if you observe: Fever of 101 or Higher, Shortness of breath, Dizziness, Fainting spells, Swelling in the ankles, Chest pain and Increased palpitations (irregular heartbeat) Meaningful Use Info Meaningful Use Diagnoses (Choose all that apply): None applicable Discharge Plan Admission Admit Date/Time: 06/04/22 20:46 Attending Provider: Petr Ro Primary Care Provider: Ellen Lindsay Consulting Providers: Akhil Sorto ; Tamara Del Cid Discharge Orders/Prescriptions Prescriptions: New polyethylene glycol 3350 17 gram Powder In Packet 17 g PO DAILY 30 Days Qty: 30 0RF sennosides-docusate sodium [Stool Softener-Stimulant Laxat] 8.6-50 mg Tablet 1 tab PO DAILY 30 Days Qty: 30 0RF Continued diclofenac sodium 50 MG tablet 75 mg PO DAILY Label Comments: pain lorazepam 1 MG tablet 1 tab PO PRN PRN (Reason: Anxiety) Label Comments: quetiapine [Seroquel] 25 mg tablet 50 mg PO QHS Label Comments: TAKE 1 TABLET BY MOUTH ONCE DAILY AT BEDTIME losartan 50 mg tablet 50 mg PO DAILY Label Comments: TAKE 1 TABLET BY MOUTH ONCE DAILY quetiapine [Seroquel] 25 mg Tablet 25 mg PO DAILY hydroxyzine pamoate 50 mg capsule 50 mg PO PRN PRN (Reason: Anxiety) Label Comments: TAKE 1 CAPSULE BY MOUTH EVERY 6 HOURS NEEDED FOR ANXIETY mirtazapine 15 mg tablet 15 mg PO DAILY Label Comments: TAKE 1 TABLET BY MOUTH NIGHTLY Referrals / Follow Up: Ellen Lindsay DO [Primary Care Provider] - Within 1 Week Akhil Sorto MD [Med Staff - Active Staff] - Within 3 Months Disposition Disposition (needs filled in before D/C Order can be placed): Home, Self Care Charges/Coding Visit Charges Inpatient E&M: 24497 Disch Hosp >30min
[2022-06-06 14:15] VITALS: BP 136/87; PULSE 70; RESP 16; TEMP 36.6; O2SAT 98
[2022-06-06 14:23] VITALS: BP 136/87; PULSE 70; RESP 16; TEMP 36.6; O2SAT 98
--- NOTE | 2022-06-06 16:05 | PHA.DC.MR ---
Pharmacy Service has performed discharge medication reconciliation for this patient. The patient's discharge medication list was reviewed for discrepancies and discrepancies were resolved. Attempted to direct selling counselor, patient unavailable. Home Medications diclofenac sodium 50 mg tablet,delayed release 75 mg PO DAILY ARTHRITIS 04/11/15 lorazepam 1 mg tablet 1 tab PO PRN PRN Anxiety 11/07/17 quetiapine 25 mg tablet (Seroquel) 50 mg PO QHS BIPOLAR 05/26/21 losartan 50 mg tablet 50 mg PO DAILY BLOOD PRESSURE 05/14/22 quetiapine 25 mg tablet (Seroquel) 25 mg PO DAILY BIPOLAR 05/14/22 hydroxyzine pamoate 50 mg capsule 50 mg PO PRN PRN Anxiety 06/04/22 mirtazapine 15 mg tablet 15 mg PO DAILY DEPRESSION 06/04/22 polyethylene glycol 3350 17 gram oral powder packet 17 g PO DAILY 30 days #30 ea 06/06/22 sennosides 8.6 mg-docusate sodium 50 mg tablet (Stool Softener-Stimulant Laxative) 1 tab PO DAILY 30 days #30 tabs 06/06/22
== END 2022-06-06 16:19 | disposition home or self-care (01) | DRG 390 ==
LOC: ED 20:56 → PCU 21:00
PROVIDERS: Admitting Provider Family Medicine; Emergency Provider Emergency Medicine; PCP Family Medicine; Visit Provider Family Medicine
DX: K56.609 Unspecified intestinal obstruction, unspecified as to partial versus complete obstruction (principal); E03.9 Hypothyroidism, unspecified; F31.9 Bipolar disorder, unspecified; G47.33 Obstructive sleep apnea (adult) (pediatric); I10 Essential (primary) hypertension; E78.5 Hyperlipidemia, unspecified; F41.9 Anxiety disorder, unspecified; K21.9 Gastro-esophageal reflux disease without esophagitis; G89.4 Chronic pain syndrome; E66.9 Obesity, unspecified; Z68.39 Body mass index [BMI] 39.0-39.9, adult; Z91.041 Radiographic dye allergy status; Z79.899 Other long term (current) drug therapy
CPT/HCPCS: 36415; 74018; 74176; 74250; 80048; 80053; 85025; 94668; 99285; J7030; A4216; J2405

== ENCOUNTER → 2022-07-08 | Outpatient (CLI) | payer BC, SELFPAY ==
[2022-07-08 08:53] LABS: Cholesterol 280 mg/dL (200); High Density Lipoprotein 57 mg/dL; Triglycerides 111 mg/dL; Very Low Density Lipoprotein 22 mg/dL (5-40)
[2022-07-08 10:50] LABS: Chlamydia Trachomatis by PCR POSITIVE (Negative); Neisserai gonorrhoeae by PCR Negative (Negative); Probe Check PASS; Sample Adequacy Control PASS; Specimen Processing Control PASS
[2022-07-10 09:40] LABS: HIV - WCH Non-Reactive (Nonreactive); Hepatitis B Surface Antibody Non-Reactive; Hepatitis B Surface Antigen Non-Reactive (Nonreactive); Hepatitis C Antibody Non-Reactive (Nonreactive); Syphilis Antibodies Non-reactive
== END | disposition home or self-care (01) ==
LOC: LAB 07:43
PROVIDERS: PCP Family Medicine; Referring Provider Family Medicine; Visit Provider Family Medicine
DX: E78.5 Hyperlipidemia, unspecified (principal); Z20.9 Contact with and (suspected) exposure to unspecified communicable disease
CPT/HCPCS: 36415; 80061; 86703; 86706; 86780; 86803; 87340; 87491; 87591

== ENCOUNTER → 2022-08-04 | Outpatient (CLI) | payer BC, SELFPAY ==
--- NOTE | 2022-08-04 13:37 | RAD_ITS ---
HISTORY: PAIN IN FOOT/LEG. TECHNIQUE: XR Foot Min 3 Views. COMPARISON: None. FINDINGS: BONES : No acute fracture identified. Mineralization unremarkable. Small calcaneal spur at the Achilles tendon insertion. JOINTS: No dislocation. Mild degenerative osteophytes of the first metatarsophalangeal joint. RAD/Foot min 3 Views IMPRESSION: No acute fracture or dislocation identified in the right foot. Electronically Signed: Winsome Clemens MD at 14:15 EDT ,
== END | disposition home or self-care (01) ==
LOC: MTRAD 13:36
PROVIDERS: PCP Family Medicine; Referring Provider Podiatrist; Visit Provider Podiatrist
DX: M76.61 Achilles tendinitis, right leg (principal)
CPT/HCPCS: 73630

== ENCOUNTER 2023-02-15 16:49 | Emergency (ER) | payer BC, SELFPAY ==
[2023-02-15 16:50] VITALS: BP 175/115; PULSE 88; RESP 18; TEMP 36.4; O2SAT 100; BMI 42.5
--- NOTE | 2023-02-15 16:56 | EX.ED.DYSGE1 ---
HPI History of Present Illness Chief Complaint: Allergic Reaction [facility] Medical History (Updated 06/14/22 @ 00:04 by Background Luzma) Anxiety Arthritis Bipolar disorder Chronic pain DVT (deep venous thrombosis) GERD (gastroesophageal reflux disease) History of small bowel obstruction HLD (hyperlipidemia) Hypertension Hypothyroidism Non-smoker Obesity Sleep apnea Wears glasses Home Medications diclofenac sodium 50 mg tablet,delayed release 75 mg PO DAILY ARTHRITIS 04/11/15 [History Last Taken 04/10/15 08:00] lorazepam 1 mg tablet 1 tab PO PRN PRN Anxiety 11/07/17 [History Last Taken Unknown] quetiapine 25 mg tablet (Seroquel) 50 mg PO QHS BIPOLAR 05/26/21 [History Last Taken Unknown] losartan 50 mg tablet 50 mg PO DAILY BLOOD PRESSURE 05/14/22 [History Last Taken Unknown] quetiapine 25 mg tablet (Seroquel) 25 mg PO DAILY BIPOLAR 05/14/22 [History Last Taken Unknown] hydroxyzine pamoate 50 mg capsule 50 mg PO PRN PRN Anxiety 06/04/22 [History Last Taken Unknown] mirtazapine 15 mg tablet 15 mg PO DAILY DEPRESSION 06/04/22 [History Last Taken Unknown] polyethylene glycol 3350 17 gram oral powder packet 17 g PO DAILY 30 days #30 ea 06/06/22 [Rx Last Taken Unknown] sennosides 8.6 mg-docusate sodium 50 mg tablet (Stool Softener-Stimulant Laxative) 1 tab PO DAILY 30 days #30 tabs 06/06/22 [Rx Last Taken Unknown] Allergy/AdvReac Type Severity Reaction Status Date / Time Iodinated Contrast Media Allergy Itching Verified 06/04/22 17:39 lamotrigine Allergy Swelling Verified 02/15/23 16:50 propoxyphene napsylate Allergy Other Verified 06/04/22 17:39 [From Darvocet-N 100] Family History Father Heart disease Hypertension Hyperlipidemia Seizures Depression Mother Heart disease Hyperlipidemia Hypertension Anxiety Arthritis defect Depression Myocardial infarction Grandfather Heart disease Myocardial infarction Unknown Alcoholism Surgical History History of back surgery History of knee surgery Social History Smoking Status: Never smoker alcohol intake: current substance use type: does not use what type of physical activity do you participate in: other frequency: 5-6 times per week EXAM Physical Exam Const Vital Signs: 02/15/23 16:50 Temperature 97.5 F L Temperature Source Temporal Pulse Rate 88 Respiratory Rate 18 Blood Pressure 175/115 H Blood Pressure Mean 135 Pulse Ox 100 Oxygen Delivery Method Room Air [facility] MDM Narrative Medical decision making narrative: HISTORY OF PRESENT ILLNESS: 47-year-old male here with concern for allergic reaction. Notes he started lamotrigine approximate 9 days ago. Notes that his tongue felt funny approximately 2 days ago. States he stopped taking the lamotrigine yesterday. States he noted a white spot on his tongue today. He spoke to his prescribing physician assistant project manager she was specifically concerned about Oleary-Misael syndrome so sent him to the ED for further evaluation REVIEW OF SYSTEMS: Pertinent positives: Tongue swelling Pertinent negatives: Rash PHYSICAL EXAM: Nursing triage notes reviewed, Vital signs reviewed Constitutional: please see mdm HENT: MMM, oral mucosa moist and pink, tongue is not swollen, there is no posterior oropharyngeal swelling, uvula midline, no tonsillar edema or exudates. No submandibular edema. Patient was controlling secretions. There is a singular small shallow abnormality to the underside of the tongue that resembles an aphthous ulcer Eyes: Pupils equal round and reactive to light, Extraocular muscles intact, no conjunctival injection Neck: No stridor, no JVD, full neck ROM Lungs: Clear to auscultation, No wheezing or rales. No increased work of breathing, no conversational dyspnea, no accessory muscle use, no nasal flaring. No respiratory distress noted Heart: Regular rate and rhythm, No murmurs, No rubs and No gallops, 2+ distal pulses (radial, femoral, posterior tibial) in all extremities Abdomen: Soft, there is no tenderness, rigidity, rebound or guarding, no obvious peritoneal signs, no palpable pulsatile abdominal masses, no auscultated abdominal bruit : No CVAT Extremities: No edema Neuro: No focal neurological deficits, alert, oriented x 3 Skin: No rash or lesions noted MEDICAL DECISION MAKING: Chief Complaint: tongue swelling External records reviewed: Prior records reviewed Factors affecting care: Hypertension, Bipolar disorder Social determinants of health: none History obtained from others: none Consults: none [facility] Narrative: Patient was hemodynamically stable, afebrile, nontoxic-appearing. I considered the following differential diagnosis: Allergic reaction, pharyngitis, Jamin's angina, aphthous ulcer The patient's history, clinical exam, vital signs suggest likely aphthous ulcer. No signs of airway, eyes, stridor, neck stiffness, drooling, difficulty controlling secretions. There is no fever, headache, burning rash, no dysuria ocular involvement or other signs of Oleary-Misael syndrome including headache malaise arthralgia. Patient was given empiric therapy including prednisone, Benadryl and Pepcid for inflammatory control to decrease swelling. He was given strict return precautions and follow-up with his prescribing physician for further outpatient evaluation and treatment. The patient and/or family, caregivers express understanding. The patient and/or family, caregivers agrees with the plan. Shared decision making: I will have a discussion with the patient and or visitors regarding risk/benefits of further testing or admission. They will be made aware of of the risk/benefits inherent in this decision they will be given the opportunity to voice understanding. Total critical care time today provided was at least 0 minutes. This excludes separately billable procedures. Critical care time (if documented) is secondary to the patient having high probability of clinically significant/life threatening deterioration in the patient's condition which required my urgent intervention. Impression: 1. Aphthous stomatitis 2. Tongue swelling Dispo: Discharge Discharge Plan Triage Chief Complaint: Allergic Reaction ED Provider: John Martines Dx/Rx/DC Orders Prescriptions: No Action diclofenac sodium 50 MG tablet 75 mg PO DAILY Patient Comments: pain lorazepam 1 MG tablet 1 tab PO PRN PRN (Reason: Anxiety) Patient Comments: quetiapine [Seroquel] 25 mg tablet 50 mg PO QHS Patient Comments: TAKE 1 TABLET BY MOUTH ONCE DAILY AT BEDTIME losartan 50 mg tablet 50 mg PO DAILY Patient Comments: TAKE 1 TABLET BY MOUTH ONCE DAILY quetiapine [Seroquel] 25 mg Tablet 25 mg PO DAILY hydroxyzine pamoate 50 mg capsule 50 mg PO PRN PRN (Reason: Anxiety) Patient Comments: TAKE 1 CAPSULE BY MOUTH EVERY 6 HOURS NEEDED FOR ANXIETY mirtazapine 15 mg tablet 15 mg PO DAILY Patient Comments: TAKE 1 TABLET BY MOUTH NIGHTLY polyethylene glycol 3350 17 gram Powder In Packet 17 g PO DAILY 30 Days Qty: 30 0RF sennosides-docusate sodium [Stool Softener-Stimulant Laxat] 8.6-50 mg Tablet 1 tab PO DAILY 30 Days Qty: 30 0RF Primary Care Provider: Ellen Lindsay Referrals: Ellen Lindsay DO [Primary Care Provider] -
[2023-02-15 17:02] VITALS: PULSE 89; RESP 16; O2SAT 98
[2023-02-15] MEDS: Famotidine 20 MG Tablet PO (17:35)
[2023-02-15] MEDS: predniSONE 20 MG Tablet 40 MG PO (17:35)
[2023-02-15] MEDS: DiphenhydrAMINE 25 MG Capsule PO (17:35)
[2023-02-15 17:37] VITALS: PULSE 79; RESP 16; O2SAT 97
== END 2023-02-15 17:38 | disposition home or self-care (01) ==
PROVIDERS: Emergency Provider Emergency Medicine; PCP Family Medicine; Visit Provider Emergency Medicine
DX: K12.0 Recurrent oral aphthae (principal); F31.9 Bipolar disorder, unspecified; K14.8 Other diseases of tongue; E78.5 Hyperlipidemia, unspecified; I10 Essential (primary) hypertension; Z79.899 Other long term (current) drug therapy
CPT/HCPCS: 99284; A4216

== ENCOUNTER → 2023-03-14 | Outpatient (CLI) | payer BC, SELFPAY | END | disposition home or self-care (01) | LOC: LABSPEC 14:44 | PROVIDERS: PCP Family Medicine; Visit Provider Family Medicine | DX: N39.0 Urinary tract infection, site not specified (principal) | CPT/HCPCS: 87077; 87086; 87088; 87186 ==

== ENCOUNTER 2023-04-11 17:06 | Emergency (ER) | payer BC, SELFPAY ==
[2023-04-11 17:08] VITALS: BP 212/132; PULSE 103; RESP 16; TEMP 36.1; O2SAT 98; BMI 42.6
[2023-04-11 17:26] LABS: Absolute Lymphocyte Count 1.16 X10^3/uL (0.83-4.51); Absolute Neutrophil Count 9.6 X10^3/uL (2.0-7.7); Basophil# 0.04 X10^3/uL; Basophil% 0.4 % (0-1); Eosinophil# 0.04 X10^3/uL; Eosinophils% 0.4 % (0-5); Hematocrit 49.6 % (40-54); Hemoglobin 16.8 g/dL (13.0-16.5); Lymphocyte # 1.16 X10^3/ul (0.83-4.51); Lymphocyte % 10.3 % (19-41); Mean Corp Hgb Conc 33.9 g/dL (32-36); Mean Corpuscular Hgb 28.8 pg (27.0-32.0); Mean Corpuscular Volume 85.1 fL (80-94); Mean Platelet Vol. 9.3 fl (6.2-12.0); Monocyte# 0.39 X10^3/uL; Monocyte% 3.5 % (0-10); NRBC Flagged by Analyzer 0 % (0-5); Neutrophil # 9.58 X10^3/uL (2.7-7.7); Neutrophil % 85.2 % (47-70); Platelet Count 258 K/mm3 (150-450); RBC Distribution Width CV 13.1 % (11.6-14.6); RBC Distribution Width SD 39.8 fl (35.1-43.9); Red Blood Count 5.83 M/mm3 (4.6-6.2); White Blood Count 11.2 K/mm3 (4.4-11.0)
[2023-04-11 17:43] LABS: ALB/GLOB Ratio 1.1 RATIO (0.9-2.4); AST(SGOT) 20 U/L (15-37); Alanine Aminotransfer ALT/SGPT 40 U/L (16-61); Albumin, Serum 3.9 g/dL (3.2-5.0); Alkaline Phosphatase 67 U/L (45-117); Anion Gap 6 (5-15); BUN 15 mg/dL (7-18); BUN/Creat Ratio 13.3 RATIO (10-20); Calcium,Total 9.1 mg/dL (8.5-10.1); Chloride 109 mmol/L (98-107); Creatinine, Serum 1.13 mg/dL (0.70-1.30); EST Glomerular Filtration Rate 73 mL/min (>60); Est Glom Filt Rate - Afr Amer 89 mL/min (>60); Estimated Creatinine Clearance 110.46 ml/min; Globulin 3.4 g/dL (2.2-4.2); Glucose 144 mg/dL (74-106); Potassium 4.1 mmol/L (3.5-5.1); Protein, Total 7.3 g/dL (6.4-8.2); Sodium Level 140 mmol/L (136-145)
[2023-04-11 17:52] LABS: Mucous, Urine 0 SEEN /hpf (<or=2+); Red Blood Cells-Urine 0 SEEN /hpf (0-5); White Blood Cells 0 SEEN /hpf (0-5)
[2023-04-11 18:09] LABS: Color, Urine Yellow (Yellow); Glucose, Dipstick Normal (Normal); Ketone-Dipstick Negative (Negative); Leukocyte Esterase-Dipstick Negative /ul (Negative); Nitrite-Dipstick Negative (Negative); Occult Blood-Urine Negative /ul (Negative); Protein-Dipstick 15 mg/dl (Negative); Specific Gravity, Urine 1.015 (1.002-1.030); Urine Bilirubin Dipstick Negative (Negative); Urine Clarity Clear (Clear); Urine Urobilinogen Normal (Normal)
[2023-04-11 18:20] LABS: Amorphous Sediment 1+; Squamous Epithelial Cells - UA 0-5 SEEN /hpf (0-5)
[2023-04-11 18:21] LABS: Bacteria RARE /hpf (None Seen)
--- OUTSIDE RECORDS SUMMARY | 2023-04-11 18:28 | XMS RPT_ITS | CCD ---
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 Name Role Phone RGDARWIN Primary Care Unavailable BONIFACIO REGALADO Admitting Unavailable AIDAN COCHRAN Attending Unavailable Problems Problem Classification Problem Date Documented Da te Episodic/Chronic Suicide and intentional self-inflicted injury (2 sources) Suicidal ideations; Translations: [Suicidal ideations] Onset: 05-29-2022 Episodic Results Test Name Value Interpretation Reference Range Facil ity Encounters Encounter Date Encounter Type Care Provider Facility Start: 05-29-2022 End: 06-01-2022 Evaluation and management of inpatient DARWIN DIEZ [facility] Payers Date Payer Category Payer Unknown [id number] Discharge summary note 06-01-2022 Note Date & Type Note Facility 06-01-2022 Note DISCHARGE SUMMARY Patient ID: Fabián Marinelli [id number] y.o. 1975 Admit date: 05/29/2022 Discharge date: 06/01/2021 Admitting Physician: Bonifacio Regalado MD Discharge Diagnoses: MDD, recurrent, severe without psychosis Discharge Physician: Aidan Cochran DO Admission Diagnoses: Suicidal ideation [R45.851] Admission Condition: poor Discharged Condition: good Admission Circumstance: Pt was seen in the ED and admitted for suicidal ideation with a plan to crash his car. Examination: BP (!) 137/92 Pulse 83 Temp 36.8 ?C (98.2 ?F) (Temporal) Resp 20 Wt 122 kg (268 lb) SpO2 100% Hospital Course: Pt was admitted to [facility] for safety and stabilization. They were treated with Remeron and Seroquel. Mood improved, affect brightened. Pt was compliant with medications and maintained safety on the unit. They did not require restraints, seclusion, or prn sedation during their admission. They were social on the unit. Pt consistently denied suicidal or homicidal ideation. On the day of discharge, the pt denied suicidal or homicidal ideation, AVH, or delusional beliefs. They were future oriented. Pt was willing to follow-up on an outpatient basis and continue taking medications. Pt was future oriented, discussing vacation plans in [place]. Pt will follow-up with his PCP for HTN. On the day of discharge, I spoke with pt's , Keanu, , with pt's permission. She denied safety concerns about the pt being discharged and felt he was back to baseline. Keanu denied that the pt had access to firearms. Patient has been feeling better. Significant progress in the symptoms since admission. Mood better No AVH or paranoid thoughts No Hopeless or worthless feeling No active SI/HI Appetite: Normal Sleep: Normal Energy: Normal SI: No HI: No Aggression: No Patient is able to CONTRACT FOR SAFETY Medication side effects(SE): No Access to Firearms: Pt denied Mental Status Examination on discharge: Level of consciousness: within normal limits Appearance: well-appearing Behavior/Motor: no abnormalities noted Attitude toward examiner: attentive and good eye contact Speech: spontaneous, normal rate and normal volume Gait: Normal Mood: euthymic Affect: mood congruent Thought processes: linear Thought content: No evidence of suicidal or homicidal ideation, AVH, or delusions Cognition: oriented to person, place, and time Concentration intact Memory intact Insight good Judgement fair Fund of Knowledge adequate Assessment: Patient symptoms are: Well controlled Was pt discharged on more than 1 antipsychotic: No Diet: Regular Activity: As tolerated Suicide Risk Assessment Chronic Factors: history of psychiatric illness and physical illness Protective Factors: desire to improve condition, external support, treatment compliance, access to outpatient treatment, and coping skills displayed Risk Assessment: Low Modifiable Factors: no access to firearms, access removed, or removal was refused, psychiatric medication: pt received/was offered, psychiatric disorder/symptoms: address with counseling/medication during admission, outpatient treatment access: pt set-up with outpatient follow-up for psychiatric outpatient/addiction treatment, stressors: discussed in-depth, including potential solutions/coping skills, and external support: family/friends contact for collateral information and discharge planning Labs: Recent Labs 05/29/22 1857 WBC 6.9 HGB 15.1 PLT 234 Recent Labs 05/29/22 1857 NA 140 K 3.6 CL 105 CO2 24 BUN 16 CREATININE 0.99 GLUCOSE 87 Recent Labs 05/29/22 1857 BILITOT 0.7 ALKPHOS 83 AST 22 ALT 22 Lab Results Component Value Date COCAINESCRN Negative 05/29/2022 ETOH <0.010 05/29/2022 No results found for: TSH, FREET4 No results found for: LITHIUM No results found for: VALPROATE, CBMZ RISK ASSESSMENT AT DISCHARGE: Low risk for suicide and homicide. They deny SI/HI/AVH/delusions. Pt is forward thinking. Pt is able to contract for safety. Safety plan was discussed with the pt, about pt calling 911 or reporting to the ED if they felt like a risk to themselves or others. Pt expressed agreement and understanding of treatment plan. Consults: Social Work, IMS Treatment Plan: Reviewed current Medications with the patient. Education provided on the complaince with treatment. Risks, benefits, side effects, [id number] interactions and alternatives to treatment were discussed. Continue medications per medical reconciliation Encourage patient to attend outpatient follow up appointment and therapy. Discharge planning discussed with the patient and treatment team. Follow-up with [facility] per discharge instructions Proper PPE was worn during the entirety of the encounter. I saw and evaluated the patient. I spent 35 minutes, over 51% in direct patient care and counseling, mental s (more content not included)... [facility] Clinical Note 06-01-2022 Note Date & Type Note Facility 06-01-2022 Note Individual Therapy P rogress Note [facility] met with pt to discuss counseling options while in the hospital of group therapy daily and meeting individually. Pt refused counseling services at this time. [facility] Clinical Note 05-31-2022 Note Date & Type Note Facility 05-31-2022 Note Psychiatric Progress Note 06/01/2022 Chief Complaint Patient presents with Suicidal Pt here for suicidal thoughts that have been on-going for several weeks, pt stated that he recently had adjustments to his psych medications and has had continued thoughts of harming himself but no plan. Subjective: Pt is being seen in follow-up for depression. Pt has been compliant with Seroquel. Endorsed elevated anxiety. Stated he does not like being the hospital, signed a 3 day notice. Pt feels like he is doing better overall. [x] Patient was seen and examined in person [x] Chart reviewed [x] Labs reviewed [x] Patient's case discussed with staff/team Suicidal Ideation: [x] No [] Yes Homicidal Ideation: [x] No [] Yes Auditory Hallucinations: [x] No [] Yes Visual Hallucinations: [x] No [] Yes Delusions: [x] No [] Yes Medication side effects(SE): [x] No [] Yes Mental Status Examination Vitals : BP (!) 137/92 Pulse 83 Temp 36.8 ?C (98.2 ?F) (Temporal) Resp 20 Wt 122 kg (268 lb) SpO2 100% Appearance: [x] Casually groomed [] Unkempt [] Disheveled Level of Consciousness: [x] Alert [] Drowsy [] Tired [] Lethargic [] Distractible [] Asleep [] Could not be assessed Gait and Station: [x] Stable [] Sitting [] Lying down [] Unstable [] In wheel chair or other support Muscle Tone and Strength: [x] Normal [] Increased [] Decreased Manner: [x] Cooperative [] Guarded [] Suspicious [] Irritable [] Hostile [] Withdrawn Motor Activity: [x] Normal [] Agitation [] Psychomotor retardation [] Tremor [] Abnormal involuntary movements [] Extrapyramidal side effects Speech: [x] Normal [] Soft [] Loud [] Rapid [] Pressured [] Dysarthria [] Incoherent Mood: [] Euthymic [x] Depressed [] Irritable [] Angry [] Anxious [] Fearful [] Apathetic [] Euphoric [] Other [] Could not be assessed Affect: [] Normally variable [x] Restricted [] Flat [] Irritable [] Angry [] Anxious [] Labile [] Expansive [] Exaggerated Thought Process/Association: [x] Normal [] Tangential [] Circumstantial [] Poverty of Thought [] Disorganized [] Racing Thoughts [] Flight of Ideas [] Organized and logical [] Could not be assessed Thought Content: [] Hopelessness [] Worthlessness [] Hypochondriasis [] Anxious [] Depressed [x] Ruminations [] Obsessions/Compulsions [] Hopeful [] Motivated [] Future Oriented [] Could not be assessed Delusions: [x] No noted delusions [] Delusions [] Persecutory [] Bizarre [] Pentecostalism [] Grandiose [] Somatic [] Could not be assessed Thoughts of Harm: [x] No SI/HI [] Passive wish [] No suicidal ideation [] Suicidal ideation with plan [] Suicidal ideation without plan [] No homicidal ideation [] Homicidal ideation with plan [] Homicidal ideation without plan [] Could not be assessed Hallucinations: [x] No hallucinations [] Hallucinations [] Auditory [] Visual [] Olfactory [] Tactile [] Could not be assessed Attention/Concentration: [x] Intact [] Poor [] Distractible Cognition: [x] Intact [] Impaired Memory: [x] Intact [] Impaired [] Poor [] Could not be assessed Insight: [] Intact [x] Fair [] Limited [] Improved Judgement: [] Intact [] Fair [x] Limited [] Improved MEDICATIONS: Current Facility-Administered Medications: acetaminophen (Tylenol) tablet 650 mg, 650 mg, Oral, q6h PRN OR acetaminophen (Tylenol) suppository 650 mg, 650 mg, Rectal, q6h PRN, Ara Louie DO hydrOXYzine pamoate (Vistaril) capsule 50 mg, 50 mg, Oral, q6h PRN, Karrie Birmingham MD, 50 mg at 05/31/222005 influenza vac subunit quadrivalent (Flucelvax) injection 0.5 mL, 0.5 mL, IntraMUSCular, Once, Ara Louie DO LORazepam (Ativan) tablet 1 mg, 1 mg, Oral, q6h PRN, Aidan Cochran DO LORazepam (Ativan) tablet 1 mg, 1 mg, Oral, Nightly, Karrie Birmingham MD, 1 mg at 05/31/222005 losartan (Cozaar) tablet 50 mg, 50 mg, Oral, Daily, Aidan Cochran DO, 50 mg at 06/01/22 0805 mirtazapine (Remeron) tablet 15 mg, 15 mg, Oral, Nightly, Karrie Birmingham MD, 15 mg at 05/31/222005 OLANZapine (ZyPREXA) tablet 5 mg, 5 mg, Oral, q6h PRN, 5 mg at 05/30/22 0043 OR OLANZapine (ZyPREXA) injection 5 mg, 5 mg, IntraMUSCular, q6h PRN, Ara Louie DO ondansetron ODT (Zofran-ODT) disintegrating tablet 4 mg, 4 mg, Oral, q8h PRN OR ondansetron (Zofran) injection 4 mg, 4 mg, IntraVENous, q6h PRN, Ara Louie DO polyethylene glycol (PEG) 3350 (Miralax) packet 17 g, 17 g, Oral, Daily PRN, Ara Louie DO QUEtiapine (SEROquel) tablet 25 mg, 25 mg, Oral, Daily, Karrie Birmingham MD, 25 mg at 06/01/22 0805 QUEtiapine (SEROquel) tablet 50 mg, 50 mg, Oral, Nightly, Aidan Cochran DO, 50 mg at 05/31/222005 traZODone (Desyrel) tablet 50 mg, 50 mg, Oral, Nightly PRN, Ara Louie DO ASSESSMENT: MDD, recurrent, severe without psychosis MDM Complexity [] Low [x] Moderate: Acute exacerbation of a chronic condition, medication management [] High [x] Patient fito (more content not included)... [facility] Clinical Note 05-30-2022 Note Date & Type Note Facility 05-30-2022 Note Left vm for [facility] regarding referral. [facility] Clinical Note 05-30-2022 Note Date & Type Note Facility 05-30-2022 Note Department of Psychi atry Resident History and Physical - Adult IDENTIFYING INFORMATION Name: Fabián Marinelli : 1975 CHIEF COMPLAINT: Fabián Marinelli is a 46 y.o. male who presents with a chief complaint of suicidal ideation. History obtained from: this patient and chart review HISTORY OF PRESENT ILLNESS: The patient presented to the ED voluntarily via private transportation provided by his for suicidal ideation with a plan to crash his car into a tree in the setting of depression and anxiety. Patient was evaluated by psychiatry in the ED after being medically cleared for inpatient admission by the ED physician. Laboratory work up was largely non-contributory. UDS negative. Of note, patient's was present in the ED during psychiatric evaluation. Due to patient's acute distress she had provided much of the history obtained during that assessment. Patient's reported that the patient's mental health had been deteriorating over the past month or so and that they had attempted to get set up with outpatient psychiatric care in [place] but found that the waiting list was too long. Upon evaluation, patient was found during morning rounds resting in his room. He was pleasant and cooperative and confirmed the information as above. He added that he has been ruminating about over the past few weeks after having a significant health scare where he was hospitalized for a SBO. Since that time he has been under increased stress. He endorses having panic attacks at work that make it difficult for him to focus. He also notes decreased energy, increased sleep, decreased appetite, and feelings of helplessness. He is worried how his depression might affect his and children. He is motivated to seek treatment and reports that he is already engaged in outpatient counseling near [place], though he cannot recall the provider's name. REVIEW OF SYSTEMS: PSYCHIATRIC REVIEW OF SYSTEMS: MOOD: endorses change in sleep, anhedonia, guilt, change in energy, decrease in concentration, change in appetite, suicidal thoughts NILAY: distractibility, impulsivity, grandiosity, flight of ideas, activity increase, decreased need for sleep deficit, talkativeness ANXIETY: endorses anxiety about the future, to the point where patient unable to calm down PANIC: Episodes of palpitations, diaphoresis, sense of doom, shortness of breath OCD: checking, cleaning, obsessive thoughts, counting, rituals PSYCHOSIS: auditory or visual hallucinations, paranoia, delusions, disorganized thought PTSD: nightmares, flashbacks, hypervigilance, avoidance MEDICAL REVIEW OF SYSTEMS: Constitutional: Negative. HENT: Negative. Eyes: Negative. Respiratory: Negative for cough, shortness of breath and wheezing. Cardiovascular: Negative for chest pain and palpitations. Gastrointestinal: Negative for constipation, diarrhea and nausea. Endocrine: Negative. Genitourinary: Negative. Musculoskeletal: Negative for arthralgias, back pain, gait problem and myalgias. Skin: Negative for rash. Neurological: Negative for dizziness, tremors, seizures, weakness, numbness and headaches. Hematological: Negative. PSYCHIATRIC AND MEDICAL HISTORY: PSYCHIATRIC HISTORY: Past Diagnoses: bipolar disorder per patient's PCP Outpatient psychiatrist: none - family had attempted to set up outpatient care in [place] at [address] [address] but the wait list was too long to be seen Agency: None rehabilitation center manager: none Therapist: currently seeing a therapist located in the [facility], cannot recall her name Hospitalizations: denies Self harm: denies Suicide attempts: denies Medications: Seroquel previously. Currently on lorazepam 1mg BID per patient from his PCP - [facility] confirms this, last refilled on 04/10/2022 MEDICAL HISTORY: History reviewed. No pertinent past medical history. PAST SURGICAL HISTORY: History reviewed. No pertinent surgical history. 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 PHYSICAL EXAM: VITALS: BP (!) 144/92 Pulse 59 Temp 36.5 ?C (97.7 ?F) Resp 16 Wt 122 kg (268 lb) SpO2 98% PHYSICAL (more content not included)... [facility] Clinical Note 05-29-2022 Note Date & Type Note Facility 05-29-2022 Note Department of Psychi atry Resident History and Physical - Adult IDENTIFYING INFORMATION Name: Fabián Marinelli : 1975 CHIEF COMPLAINT: Fabián Marinelli is a 46 y.o. male who presents with a chief complaint of suicidal ideation. History obtained from: this patient and chart review HISTORY OF PRESENT ILLNESS: Per ED report, patient was brought into ED by his after endorsing suicidal ideation for the past several weeks. Laboratory work was unremarkable. Patient seen in room with at bedside. Patient is in acute distress, sobbing and unable to speak, so majority of information is obtained from . He is unable to calm down and is triggered by thinking about his mental health. endorses that patient has been distressed for the past month or so and had a mental breakdown at work today which was why he had to come into the hospital. Patient is actively suicidal and has a plan to run his car into a tree. does not think it is safe for the patient to go home in such a state of distress. believes that stressors are patient's fear of , as he has had SBO recently requiring admission to the hospital. Patient is living in a state of fear that is causing him such distress. Patient has been sleeping more, decreased appetite, feelings of hopelessness and helplessness. had recently tried to get patient set up with psychiatric care in [place], but the waiting list was too long. REVIEW OF SYSTEMS: Psychiatric Review Of Systems: MOOD: endorses change in sleep, anhedonia, guilt, change in energy, decrease in concentration, change in appetite, suicidal thoughts NILAY: distractibility, impulsivity, grandiosity, flight of ideas, activity increase, decreased need for sleep deficit, talkativeness ANXIETY: endorses anxiety about the future, to the point where patient unable to calm down PANIC: Episodes of palpitations, diaphoresis, sense of doom, shortness of breath OCD: checking, cleaning, obsessive thoughts, counting, rituals PSYCHOSIS: auditory or visual hallucinations, paranoia, delusions, disorganized thought PTSD: nightmares, flashbacks, hypervigilance, avoidance Medical Review Of Systems: Constitutional: Negative. HENT: Negative. Eyes: Negative. Respiratory: Negative for cough, shortness of breath and wheezing. Cardiovascular: Negative for chest pain and palpitations. Gastrointestinal: Negative for constipation, diarrhea and nausea. Endocrine: Negative. Genitourinary: Negative. Musculoskeletal: Negative for arthralgias, back pain, gait problem and myalgias. Skin: Negative for rash. Neurological: Negative for dizziness, tremors, seizures, weakness, numbness and headaches. Hematological: Negative. PSYCHIATRIC AND MEDICAL HISTORY: PSYCHIATRIC HISTORY: Past Diagnoses: Patient has a diagnosis of Bipolar disorder from a PCP. Never seen psychiatrist Outpatient psychiatrist: tried to get patient set up with [facility] in [place] but wait list too long Agency: none current Therapist: none current Hospitalizations: none lifetime Self harm: none lifetime Suicide attempts: none lifetime Medications: Seroquel, unsure of the amount. Also endorses he is on lorazepam from his pCP MEDICAL HISTORY: History reviewed. No pertinent past medical history. Past Surgical History: History reviewed. No pertinent surgical history. Medications Prior to Admission: Medication Documentation Review Audit Reviewed by Nany Marques LPN (Registered Nurse) on 05/29/22 at 1831 Medication Order Taking? 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 PHYSICAL EXAM: Vitals: BP (!) 191/132 Pulse 78 Temp 36.3 ?C (97.3 ?F) (Temporal) Wt 122 kg (268 lb) SpO2 95% Mental Status Examination: Level of consciousness: Awake and within normal limits Appearance: Appears stated age. Well-appearing and wearing hospital attire. Seen sitting in hospital bed. Fair grooming and fair hygiene. No physical abnormalities. Behavior/Motor: In acute distress. No eye contact. Not responding to internal stimuli. Attitude toward examiner: unable to cooperate due to level of distress Speech: incoherent Mood: depressed Affect: mood congruent, labile, distressed Thought processes: overall logical and linear Thought content: No (more content not included)... [facility] Progress note 03-14-2021 Note Date & Type Note Facility 03-14-2021 Note HNO ID: [id number] Author: Fatmata Goldberg MD Service: ? Author Type: Physician Type: Progress Notes Filed: 03/15/2021 9:16 AM Note Text: Freddie Marinelli 1975 REFERRING PHYSICIAN: Fatmata Goldberg MD CHIEF COMPLAINT: Established Patient HPI: The patient is a 45 year old male presents status post admission to hospital for partial small bowel obstruction. This was his first hospital admission for such. He denies previous abdominal surgeries. He was treated with NG tube decompression and IV hydration and the pSBO resolved within 48 hours. Patient is here for follow up. He states that he is passing flatus and having normal bowel movements and tolerating a regular diet. He denies abdominal pain. PAST MEDICAL HISTORY Diagnosis Date - Depression - Essential hypertension - Hypothyroidism - Unspecified intestinal obstruction, unspecified as to partial versus complete obstruction (HCC) 02/2021 PAST SURGICAL HISTORY Procedure Laterality Date - COLONOSCOP W/ OR W/O [facility] SPEC 2018 - EGD W/O OR W/BRUSH/WASH 2018 - PAST SURGICAL HISTORY OF Right 2000 ACL repair and meniscal repair - PAST SURGICAL HISTORY OF discectomy L4 2007,2012 Current Outpatient Medications Medication Sig - levothyroxine (SYNTHROID) 75 mcg tablet Take 75 mcg by mouth. - amLODIPine (NORVASC) 5 mg tablet Take 10 mg by mouth once daily. - LORazepam (ATIVAN) 1 mg tablet Take 1 mg by mouth as needed. - diclofenac XR (VOLTAREN-XR) 100 mg Tb24 Take 100 mg by mouth once daily. - ergocalciferol 50,000 unit capsule (VITAMIN D2, DRISDOL) Take 50,000 Units by mouth every 2 weeks. - omeprazole (PRILOSEC) 20 mg capsule Take 20 mg by mouth once daily. - Mirtazapine (REMERON) 7.5 mg tablet Take 7.5 mg by mouth once daily. ALLERGIES: Darvocet A500 [Propoxyphene N-Acetaminophen] PERSONAL HISTORY: Social History Tobacco Use - Smoking status: Never Smoker - Smokeless tobacco: Never Used Substance Use Topics - Alcohol use: Not Currently - Drug use: Never FAMILY HISTORY Problem Relation Age of Onset - other (vascular disease/carotid endarterectomy) Mother - other (high cholesterol) Mother - Hypertension Mother - Heart Attack Maternal Grandfather REVIEW OF SYSTEMS: General - denies fevers, denies anorexia, denies weight loss Cardiovascular - denies chest pain, denies history of MA Pulmonary - denies shortness of breath, denies coughing up blood Gastrointestinal - see HPI Neurological - denies seizures Genitourinary - denies burning with urination, denies blood in urine Hematological - denies spontaneous/prolonged bleeding Skin - denies nonhealing skin wounds Endocrine - denies diabetes, has hypothryoidism Psychological ? denies hallucinations PHYSICAL EXAMINATION: General: The patient is 45 year old male, well nourished, well hydrated in no acute distress. The patient is oriented to time, place, and person. VITALS: Blood pressure 162/104, pulse 96, temperature 36.7 ?C (98.1 ?F), temperature source Temporal Artery, weight (!) 137 kg (302 lb), SpO2 97 %. Head: Normal cephalic, atraumatic Eyes: pupils are equally round, sclera are clear/anicteric Neck is supple with no tracheal deviation Respiratory: Normal respiratory excursion and pattern. Abdominal exam: Benign, obese Extremities: no clubbing, cyanosis or edema. Neuro: non focal Psych: normal mood Assessment IMPRESSION: episode of SBO - resolved PLAN: I have discussed the above with the patient and his who is present with him. Patient has had no previous abdominal surgery, therefore need to rule out small bowel lesion causing partial SBO. Will proceed with UGI and small bowel series. Patient wants to have this scheduled prior to end of year for insurance reasons. I have personally called [facility] and obtained an appointment for March 23 at 8:00. (left message on patient's voice mail) I will contact patient with results. The patient acknowledges above. I have answered all questions to the patient?s satisfaction and the patient has no further questions. I have confirmed and edited as necessary, the PFSH and ROS obtained by others. . Diagnoses: (Z87.19) History of small bowel obstruction (primary encounter diagnosis) Return to Clinic: The patient is instructed to follow-up with me as above. I spent a total of 21 minutes on the date of the service which included preparing to see the patient with review of any pertinent laboratory studies/radiological imaging/medical records from other medical facilities such as [facility], [id number] patient care, obtaining oral medical history from the patient in this encounter, performing a medically appropriate examination, counseling and educating the patient/family/caregiver, and ordering and/or scheduling of medications/tests/procedures, and completing appropriate medical documentation. Fatmata Goldberg MD [facility] Summary Purpose Family History No Family History Records FoundNo Family History Records Found Advance Directives No Advanced Directives Records FoundNo Advanced Directives Records Found Additional Source Comments (unrecognized sect ion and content) No Status Records FoundNo Status Records Found INFORMATION SOURCE (unrecogn ized section and content) DATE CREATED AUTHOR AUTHOR'S ORGANIZ ATION 07/30/2022 [facility] FOR RECORDS PERTAINING TO PATIENTS WHO ARE OR HAVE BEEN ENROLLED IN A CHEMICAL DEPENDENCY/SUBSTANCEABUSE PROGRAM, SOME INFORMATION MAY BE OMITTED. This clinical summary was aggregated from multiple sources. Caution should be exercised in using it in the provision of clinical care. This summary normalizes information from multiple sources, and as a consequence, information in this document may materially change the coding, format and clinical context of patient data. In addition, data may be omitted in some cases. CLINICAL DECISIONS SHOULD BE BASED ON THE PRIMARY CLINICAL RECORDS. [facility]. provides no warranty or guarantee of the accuracy or completeness of information in this document.
--- NOTE | 2023-04-11 18:38 | CT_ITS ---
EXAM: CT ABDOMEN AND PELVIS WITHOUT INTRAVENOUS CONTRAST CLINICAL INDICATION: abdominal pain, hx sbo in past TECHNIQUE: Helically acquired images were obtained of the abdomen and pelvis without intravenous contrast. This CT exam was performed using one or more of the following dose reduction techniques: automated exposure control, adjustment of the mA and/or kV according to patient size, and/or use of iterative reconstruction technique. COMPARISON: 06/04/2022 FINDINGS: LOWER THORAX: Unremarkable. Lung bases are clear. No cardiomegaly. No significant pericardial effusion. ABDOMEN: LIVER: Unremarkable. Homogeneous. GALLBLADDER AND BILE DUCTS: Unremarkable. No calcified gallstones. No gallbladder distention or wall edema. No intra- or extrahepatic biliary ductal dilation. PANCREAS: Unremarkable. No focal cystic mass. SPLEEN: Unremarkable. Normal size without focal cystic or solid mass. ADRENALS: Unremarkable. No nodules. KIDNEYS AND URETERS: Unremarkable. Normal renal size and position. No hydronephrosis. STOMACH AND BOWEL: Unremarkable. No stomach or bowel distention. No focal inflammatory change. PELVIS: APPENDIX: No evidence of acute appendicitis. BLADDER: Unremarkable. REPRODUCTIVE: Unremarkable as visualized. No mass. ABDOMEN and PELVIS: INTRAPERITONEAL SPACE: Unremarkable. No ascites or other fluid collection. No free air. BONES/JOINTS: Unremarkable. No suspicious lytic or blastic abnormality. SOFT TISSUES: Unremarkable. No discrete abdominal or pelvic wall hernia. VASCULATURE: Unremarkable. Abdominal aorta is non-dilated. LYMPH NODES: Unremarkable. No enlarged lymph nodes. CT/Abdomen/Pelvis without Cont IMPRESSION: Negative CT of the abdomen and pelvis without intravenous contrast. Electronically Signed: Hitesh Levin MD at 19:16 EST ,
--- NOTE | 2023-04-11 19:14 | EDS_ITS ---
HPI HPI - GI History of Present Illness Chief Complaint: Abd Pain Narrative Narrative: 47-year-old male with history of bowel obstruction presenting with abdominal pain. He states this started on Sunday. He had decreased stool output and decreased flatus. Patient states his abdomen feels crampy. Today he took some magnesium citrate and vomited up. He states his nausea is now better. Patient states he has a history of narrow bowel and bowel obstruction because of this. He has been seen by surgery here at the hospital and also by Dr. Ruvalcaba who did upper lower endoscopy. That is the only source they can find for it. Patient has not had any abdominal surgeries in the past. [facility] Medical History Anxiety Arthritis Bipolar disorder Chronic pain DVT (deep venous thrombosis) GERD (gastroesophageal reflux disease) History of small bowel obstruction HLD (hyperlipidemia) Hypertension Hypothyroidism Non-smoker Obesity Sleep apnea Wears glasses Home Medications diclofenac sodium 50 mg tablet,delayed release 75 mg PO DAILY ARTHRITIS 04/11/15 [History Last Taken 04/10/15 08:00] lorazepam 1 mg tablet 1 tab PO PRN PRN Anxiety 11/07/17 [History Last Taken Unknown] quetiapine 25 mg tablet (Seroquel) 50 mg PO QHS BIPOLAR 05/26/21 [History Last Taken Unknown] losartan 50 mg tablet 50 mg PO DAILY BLOOD PRESSURE 05/14/22 [History Last Taken Unknown] quetiapine 25 mg tablet (Seroquel) 25 mg PO DAILY BIPOLAR 05/14/22 [History Last Taken Unknown] hydroxyzine pamoate 50 mg capsule 50 mg PO PRN PRN Anxiety 06/04/22 [History Last Taken Unknown] mirtazapine 15 mg tablet 15 mg PO DAILY DEPRESSION 06/04/22 [History Last Taken Unknown] polyethylene glycol 3350 17 gram oral powder packet 17 g PO DAILY 30 days #30 ea 06/06/22 [Rx Last Taken Unknown] sennosides 8.6 mg-docusate sodium 50 mg tablet (Stool Softener-Stimulant Laxative) 1 tab PO DAILY 30 days #30 tabs 06/06/22 [Rx Last Taken Unknown] prednisone 20 mg tablet 40 mg (2 x 20 mg) PO DAILY 5 days #10 tabs 02/15/23 [Rx Last Taken Unknown] ondansetron 4 mg disintegrating tablet 4 mg PO Q8H PRN PRN Nausea #14 tabs 03/26 10/16 [Rx Last Taken Unknown] Allergy/AdvReac Type Severity Reaction Status Date / Time Iodinated Contrast Media Allergy Itching Verified 06/04/22 17:39 lamotrigine Allergy Swelling Verified 02/15/23 16:50 propoxyphene napsylate Allergy Other Verified 06/04/22 17:39 [From Darvocet-N 100] Family History Father Heart disease Hypertension Hyperlipidemia Seizures Depression Mother Heart disease Hyperlipidemia Hypertension Anxiety Arthritis defect Depression Myocardial infarction Grandfather Heart disease Myocardial infarction Unknown Alcoholism Surgical History History of back surgery History of knee surgery Social History Smoking Status: Never smoker alcohol intake: current substance use type: does not use what type of physical activity do you participate in: other frequency: 5-6 times per week ROS ROS ED Constitutional Constitutional ED: Denies chills, fever(s) or sweats Eyes Eyes: Denies blurry vision or change in vision ENT ENT ED: Denies ear pain or sore throat Cardiovascular Cardiovascular: Denies chest pain, palpitations or racing heartbeat Respiratory/Chest Respiratory/Chest: Denies cough, dyspnea or sputum Gastrointestinal Gastrointestinal: Reports abdominal pain, nausea and vomiting; Denies constipation or diarrhea Genitourinary Genitourinary ED: Denies dysuria, hematuria or urinary frequency Musculoskeletal Musculoskeletal: Denies arthralgias, myalgias or neck pain Integumentary Denies abscess, Abrasions or rash Neurologic Neurologic: Denies headache(s), paresthesias or weakness Psychiatric Psychiatric: Denies anxiety, depression, suicidal ideation or suicidal thoughts Endocrine Endocrinology: Denies polydipsia or polyuria EXAM Physical Exam Const Vital Signs: 04/11/23 17:08 04/11/23 20:27 Temperature 97.0 F L Temperature Source Temporal Pulse Rate 103 H 85 Respiratory Rate 16 16 Blood Pressure 212/132 H 155/99 H Blood Pressure Mean 158 117 Pulse Ox 98 97 Oxygen Delivery Method Room Air Positive well nourished General Appearance ED: NAD; Negative for pallor HEENT Reports moist mucous membranes normocephalic and atraumatic Eyes PERRL and EOMs intact bilaterally General Eye ED: Negative for pale conjunctiva Resp normal respiratory effort GI non-distended and no masses Auscultation: hyperactive bowel sounds Back/Spine no CVA tenderness Neuro CN's II-XII intact bilaterally Sensorium / Orientation: alert Psych mental status grossly normal and thought process normal Skin General Skin Exam: Negative for jaundice or pallor MDM MDM MDM Narrative Medical decision making narrative: Patient presenting with abdominal pain, nausea, vomiting. Differential includes colitis, gastritis, GERD, UTI, pyelonephritis, dehydration, anemia, electrolyte abnormalities. CBC was obtained to assess white blood cell count, hemoglobin, platelets. CMP to assess liver function, renal function, electrolytes, glucose. Urinalysis to assess for UTI. Patient declined analgesia as his pain is currently controllable. Will obtain a CT of the abdomen pelvis to rule out obstruction. CBC and CMP unremarkable. Urinalysis negative for infection or occult blood. Patient CT of the abdomen pelvis shows no acute process. Patient counseled on findings. I did send him prescription for Zofran for home to help with nausea. He is to take his regular adjuncts for for pain and for constipation. Return precautions discussed. Impression: 1. Abdominal pain 2. Nausea/vomiting Lab Data Attestation: I reviewed the patient's lab results. Labs: Laboratory Results - last 24 hr 04/11/23 04/11/23 17:17 17:46 WBC 11.2 H RBC 5.83 Hgb 16.8 H Hct 49.6 MCV 85.1 MCH 28.8 MCHC 33.9 RDW Std Deviation 39.8 RDW Coeff of Bianka 13.1 Plt Count 258 MPV 9.3 Immature Gran % (Auto) 0.200 Neut % (Auto) 85.2 H Lymph % (Auto) 10.3 L Eagle % (Auto) 3.5 Eos % (Auto) 0.4 Baso % (Auto) 0.4 Absolute Neuts (auto) 9.6 H Absolute Lymphs (auto) 1.16 Nucleated RBC % 0 Sodium 140 Potassium 4.1 Chloride 109 H Carbon Dioxide 25.0 Anion Gap 6 BUN 15 Creatinine 1.13 Estim Creat Clear Calc 110.46 Est GFR (MDRD) Af Amer 89 Est GFR (MDRD) Non-Af 73 BUN/Creatinine Ratio 13.3 Glucose 144 H Calcium 9.1 Total Bilirubin 1.20 H AST 20 ALT 40 Alkaline Phosphatase 67 Total Protein 7.3 Albumin 3.9 Globulin 3.4 Albumin/Globulin Ratio 1.1 Urine Color Yellow Urine Clarity Clear Urine pH 7.0 Ur Specific [place] 1.015 Urine Protein 15 H Urine Glucose (UA) Normal Urine Ketones Negative Urine Occult Blood Negative Urine Nitrite Negative Urine Bilirubin Negative Urine Urobilinogen Normal Ur Leukocyte Esterase Negative Urine RBC 0 SEEN Urine WBC 0 SEEN Ur Squamous Epith Cells 0-5 SEEN Amorphous Sediment 1+ Urine Bacteria RARE Urine Mucus 0 SEEN Radiography Diagnostic Testing: Clinical Impression(s) from Imaging Studies Abdomen/Pelvis CT 04/11/23 18:38 IMPRESSION: Negative CT of the abdomen and pelvis without intravenous contrast. Electronically Signed: Hitesh Levin MD at 19:16 EST , Discharge Plan Triage Chief Complaint: Abd Pain ED Provider: Lele Almaguer Dx/Rx/DC Orders Instructions: ED Abdominal Pain Unkn Cause Male... Prescriptions: New ondansetron 4 mg tablet,disintegrating 4 mg PO Q8H PRN PRN (Reason: Nausea) Qty: 14 0RF No Action diclofenac sodium 50 MG tablet 75 mg PO DAILY Patient Comments: pain lorazepam 1 MG tablet 1 tab PO PRN PRN (Reason: Anxiety) Patient Comments: quetiapine [Seroquel] 25 mg tablet 50 mg PO QHS Patient Comments: TAKE 1 TABLET BY MOUTH ONCE DAILY AT BEDTIME losartan 50 mg tablet 50 mg PO DAILY Patient Comments: TAKE 1 TABLET BY MOUTH ONCE DAILY quetiapine [Seroquel] 25 mg Tablet 25 mg PO DAILY hydroxyzine pamoate 50 mg capsule 50 mg PO PRN PRN (Reason: Anxiety) Patient Comments: TAKE 1 CAPSULE BY MOUTH EVERY 6 HOURS NEEDED FOR ANXIETY mirtazapine 15 mg tablet 15 mg PO DAILY Patient Comments: TAKE 1 TABLET BY MOUTH NIGHTLY polyethylene glycol 3350 17 gram Powder In Packet 17 g PO DAILY 30 Days Qty: 30 0RF sennosides-docusate sodium [Stool Softener-Stimulant Laxat] 8.6-50 mg Tablet 1 tab PO DAILY 30 Days Qty: 30 0RF prednisone 20 mg tablet 40 mg PO DAILY 5 Days Qty: 10 0RF Primary Care Provider: Ellen Lindsay Referrals: Ellen Lindsay DO [Primary Care Provider] - Akhil Sorto MD [Med Staff - Active Staff] - 3-5 Days Disposition Disposition: Home, Self Care Discharge Date/Time: 04/11/23 20:28 Capacity Legal Tool Straightener Reflex Medical hold order details:: IF a medical hold is selected below, a suggested order for a MEDICAL HOLD will reflex upon signing the document. Next of kin: [place] law dictates a PRIORITY LIST for identifying legal decision-maker/legal nex t of kin in the following order (LNOK): 1st: The patient?s legal guardian, if any 2nd: The patient's spouse (if status is questionable, consult Risk Management) 3rd: The patient?s adult child(danna) (majority, if multiple children) 4th: The patient?s parents 5th: The patient?s adult siblings (majority, if multiple children siblings)
[2023-04-11 20:27] VITALS: BP 155/99; PULSE 85; RESP 16; O2SAT 97
== END 2023-04-11 20:28 | disposition home or self-care (01) ==
PROVIDERS: Emergency Provider Student in an Organized Health Care Education/Training Program; PCP Family Medicine; Visit Provider Student in an Organized Health Care Education/Training Program
DX: R10.9 Unspecified abdominal pain (principal); R11.2 Nausea with vomiting, unspecified; E78.5 Hyperlipidemia, unspecified; I10 Essential (primary) hypertension; E66.9 Obesity, unspecified; G47.30 Sleep apnea, unspecified; Z79.899 Other long term (current) drug therapy
CPT/HCPCS: 74176; 80053; 81001; 85025; 99283

== ENCOUNTER → 2023-05-05 | Outpatient (CLI) | payer BC, SELFPAY ==
--- OUTSIDE RECORDS SUMMARY | 2023-05-05 08:06 | XMS RPT_ITS | CCD ---
Author Name Unknown Address [address] [place] [address] Organization [facility] Care Team Providers Care Kiln Operator Name Role Phone RGDARWIN Primary Care Unavailable BONFIACIO REGALADO Admitting Unavailable AIDAN COCHRAN Attending Unavailable Problems Problem Classification Problem Date Documented Da te Episodic/Chronic Suicide and intentional self-inflicted injury (2 sources) Suicidal ideations; Translations: [Suicidal ideations] Onset: 05-29-2022 Episodic Results Test Name Value Interpretation Reference Range Facil ity Encounters Encounter Date Encounter Type Care Provider Facility Start: 05-29-2022 End: 06-01-2022 Evaluation and management of inpatient DARWIN DIEZ [facility] Payers Date Payer Category Payer Unknown [id number] Discharge summary note 06-01-2022 Note Date & Type Note Facility 06-01-2022 Note DISCHARGE SUMMARY Patient ID: Fabián Marinelli [id number] y.o. 1975 Admit date: 05/29/2022 Discharge [...] 100% Hospital Course: Pt [facility] for safety and stabilization. They were treated [...] was future oriented, discussing vacation plans in [place]. Pt will follow-up with his PCP for [...] complaince with treatment. Risks, benefits, side effects, [id number] interactions and alternatives to treatment were discussed. Continue medications per medical reconciliation Encourage patient to attend outpatient follow up appointment and therapy. Discharge planning discussed with the patient and treatment team. Follow-up with [facility] per discharge instructions Proper PPE was worn during the entirety of the encounter. I saw and evaluated the patient. I spent 35 minutes, over 51% in direct patient care and counseling, mental s (more content not included)... [facility] Clinical Note 06-01-2022 Note Date & Type Note Facility 06-01-2022 Note Individual Therapy P rogress Note [facility] met with pt to discuss counseling options while in the hospital of group therapy daily and meeting individually. Pt refused counseling services at this time. [facility] Clinical Note 05-31-2022 Note Date & [...] [] Delusions [] Persecutory [] Bizarre [] Church [] [place]iose [] Somatic [] Could not [...] [x] Patient fito (more content not included)... [facility] Clinical Note 05-30-2022 Note Date & Type Note Facility 05-30-2022 Note Left vm for [facility] regarding referral. [facility] Clinical Note 05-30-2022 Note Date & [...] set up with outpatient psychiatric care in [place] but found that the waiting list was [...] is already engaged in outpatient counseling near [place], though he cannot recall the provider's name. 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 PHYSICAL EXAM: VITALS: BP (!) 144/92 Pulse 59 Temp 36.5 ?C (97.7 ?F) Resp 16 Wt 122 kg (268 lb) SpO2 98% PHYSICAL (more content not included)... [facility] Clinical Note 05-29-2022 Note Date & [...] patient set up with psychiatric care in [place], but the waiting list was too long. 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 [facility] Progress note 03-14-2021 Note Date & Type Note Facility 03-14-2021 Note HNO ID: [id number] Author: Fatmata Goldberg MD Service: ? Author [...] Laterality Date - COLONOSCOP W/ OR W/O [facility] SPEC 2018 - EGD W/O OR W/BRUSH/WASH [...] - denies chest pain, denies history of CT Pulmonary - denies shortness of breath, denies [...] for insurance reasons. I have personally called [facility] and obtained an appointment for March 23 [...] records from other medical facilities such as [facility], [id number] patient care, obtaining oral medical history from the patient in this encounter, performing a medically appropriate examination, counseling and educating the patient/family/caregiver, and ordering and/or scheduling of medications/tests/procedures, and completing appropriate medical documentation. Fatmata Goldberg MD [facility] Summary Purpose Family History No Family History Records FoundNo Family History Records Found Advance Directives No Advanced Directives Records FoundNo Advanced Directives Records Found Additional Source Comments (unrecognized sect ion and content) No Status Records FoundNo Status Records Found INFORMATION SOURCE (unrecogn ized section and content) DATE CREATED AUTHOR AUTHOR'S ORGANIZ ATION 07/30/2022 [facility] FOR RECORDS PERTAINING TO PATIENTS WHO ARE [...] BE BASED ON THE PRIMARY CLINICAL RECORDS. [facility]. provides no warranty or guarantee of the accuracy or completeness of information in this document.
[2023-05-05 08:31] LABS: Absolute Neutrophil Count 4.1 X10^3/uL (2.0-7.7); Basophil# 0.04 X10^3/uL; Basophil% 0.6 % (0-1); Eosinophil# 0.17 X10^3/uL; Eosinophils% 2.7 % (0-5); Hematocrit 43.8 % (40-54); Hemoglobin 14.8 g/dL (13.0-16.5); Mean Corp Hgb Conc 33.8 g/dL (32-36); Mean Corpuscular Volume 85.7 fL (80-94); Mean Platelet Vol. 9.7 fl (6.2-12.0); Monocyte# 0.46 X10^3/uL; Monocyte% 7.3 % (0-10); NRBC Flagged by Analyzer 0 % (0-5); Neutrophil # 4.07 X10^3/uL (2.7-7.7); Neutrophil % 65.1 % (47-70); Platelet Count 193 K/mm3 (150-450); RBC Distribution Width CV 13.1 % (11.6-14.6); RBC Distribution Width SD 40.5 fl (35.1-43.9); Red Blood Count 5.11 M/mm3 (4.6-6.2); White Blood Count 6.3 K/mm3 (4.4-11.0)
[2023-05-05 09:14] LABS: ALB/GLOB Ratio 1.1 RATIO (0.9-2.4); AST(SGOT) 18 U/L (15-37); Alanine Aminotransfer ALT/SGPT 34 U/L (16-61); Albumin, Serum 3.5 g/dL (3.2-5.0); Alkaline Phosphatase 61 U/L (45-117); Anion Gap 2 (5-15); BUN 17 mg/dL (7-18); BUN/Creat Ratio 17.1 RATIO (10-20); Calcium,Total 8.3 mg/dL (8.5-10.1); Chloride 112 mmol/L (98-107); Cholesterol 177 mg/dL (200); EST Glomerular Filtration Rate 85 mL/min (>60); Est Glom Filt Rate - Afr Amer 103 mL/min (>60); Free T3 2.6 pg/mL (2.18-3.98); Globulin 3.2 g/dL (2.2-4.2); Glucose 108 mg/dL (74-106); High Density Lipoprotein 60 mg/dL; PSA,Total - Annual Screen 0.46 ng/mL (0.00-4.00); Protein, Total 6.7 g/dL (6.4-8.2); Sodium Level 140 mmol/L (136-145); T4 Free Direct 0.74 ng/dL (0.76-1.46); Thyroid Stim Hormone (TSH) 3.77 uIU/mL (0.358-3.74); Triglycerides 83 mg/dL; Very Low Density Lipoprotein 17 mg/dL (5-40)
== END | disposition home or self-care (01) ==
LOC: LAB 08:03
PROVIDERS: PCP Family Medicine; Referring Provider Family Medicine; Visit Provider Family Medicine
DX: E03.9 Hypothyroidism, unspecified (principal); E78.5 Hyperlipidemia, unspecified; Z51.81 Encounter for therapeutic drug level monitoring
CPT/HCPCS: 36415; 80053; 80061; 84153; 84439; 84443; 84481; 85025; G0103

== ENCOUNTER → 2023-07-09 | Outpatient (CLI) | payer BC, SELFPAY ==
[2023-07-09 17:47] LABS: Hematocrit 44.1 % (40-54); Mean Corpuscular Volume 85.3 fL (80-94); Platelet Count 256 K/mm3 (150-450); RBC Distribution Width SD 39.9 fl (35.1-43.9); Red Blood Count 5.17 M/mm3 (4.6-6.2); White Blood Count 6.4 K/mm3 (4.4-11.0)
[2023-07-09 18:05] LABS: Lithium < 0.20 mmol/L (0.60-1.20)
[2023-07-09 18:09] LABS: Hemoglobin A1c 5.5 % (3.8-5.6)
[2023-07-09 18:24] LABS: ALB/GLOB Ratio 1.3 RATIO (0.9-2.4); AST(SGOT) 20 U/L (15-37); Alanine Aminotransfer ALT/SGPT 33 U/L (16-61); Albumin, Serum 4.1 g/dL (3.2-5.0); Alkaline Phosphatase 63 U/L (45-117); Anion Gap 6 (5-15); BUN 18 mg/dL (7-18); BUN/Creat Ratio 17.3 RATIO (10-20); Calcium,Total 8.6 mg/dL (8.5-10.1); Chloride 110 mmol/L (98-107); Cholesterol 180 mg/dL (200); Creatinine, Serum 1.04 mg/dL (0.70-1.30); EST Glomerular Filtration Rate 81 mL/min (>60); Est Glom Filt Rate - Afr Amer 98 mL/min (>60); Globulin 3.2 g/dL (2.2-4.2); Glucose 81 mg/dL (74-106); High Density Lipoprotein 57 mg/dL; Potassium 3.6 mmol/L (3.5-5.1); Protein, Total 7.3 g/dL (6.4-8.2); Sodium Level 141 mmol/L (136-145); Thyroid Stim Hormone (TSH) 3.72 uIU/mL (0.358-3.74); Triglycerides 91 mg/dL; Very Low Density Lipoprotein 18 mg/dL (5-40)
== END | disposition home or self-care (01) ==
PROVIDERS: PCP Family Medicine; Referring Provider Physician Assistant; Visit Provider Physician Assistant
DX: Z51.81 Encounter for therapeutic drug level monitoring (principal); Z79.899 Other long term (current) drug therapy
CPT/HCPCS: 36415; 80053; 80061; 80178; 83036; 84443; 85027

== ENCOUNTER → 2023-08-14 | Outpatient (CLI) | payer BC, SELFPAY ==
[2023-08-14 17:44] LABS: Hematocrit 44.9 % (40-54); Hemoglobin 15.3 g/dL (13.0-16.5); Mean Corp Hgb Conc 34.1 g/dL (32-36); Mean Corpuscular Hgb 29.5 pg (27.0-32.0); Mean Corpuscular Volume 86.7 fL (80-94); Mean Platelet Vol. 9.7 fl (6.2-12.0); Platelet Count 228 K/mm3 (150-450); RBC Distribution Width CV 13.2 % (11.6-14.6); RBC Distribution Width SD 41.4 fl (35.1-43.9); Red Blood Count 5.18 M/mm3 (4.6-6.2); White Blood Count 6.6 K/mm3 (4.4-11.0)
[2023-08-14 18:06] LABS: Lithium < 0.20 mmol/L (0.60-1.20)
== END | disposition home or self-care (01) ==
LOC: MTLAB 15:56
PROVIDERS: PCP Family Medicine; Referring Provider Physician Assistant; Visit Provider Physician Assistant
DX: Z51.81 Encounter for therapeutic drug level monitoring (principal); Z79.899 Other long term (current) drug therapy
CPT/HCPCS: 36415; 80178; 85027

== ENCOUNTER → 2023-10-19 | Outpatient (CLI) | payer BC, SELFPAY ==
--- NOTE | 2023-10-19 15:21 | RAD_ITS ---
HISTORY: PAIN. TECHNIQUE: XR Spine Lumbar Comp W/ Bending Min 6 Views. COMPARISON: 03/16/2013. FINDINGS: VERTEBRAE: Vertebral body heights preserved. Posterior elements appear intact. ALIGNMENT: No significant anterior or posterior subluxation. INTERVERTEBRAL DISCS: Degenerative endplate changes with increased intervertebral disc space narrowing of L4-5.. RAD/L/S Spine w Bend Min 6 Vw IMPRESSION: No acute fracture or dislocation identified in the lumbar spine. Increased L4-5 degenerative change. Electronically Signed: Winsome Clemens MD at 9:05 EDT ,
== END | disposition home or self-care (01) ==
LOC: MTLAB 15:17
PROVIDERS: Physician Assistant; PCP Family Medicine; Referring Provider Clinical Nurse Specialist Adult Health; Visit Provider Clinical Nurse Specialist Adult Health
DX: Z51.81 Encounter for therapeutic drug level monitoring (principal); Z79.899 Other long term (current) drug therapy; M51.26 Other intervertebral disc displacement, lumbar region; M12.9 Arthropathy, unspecified; M54.17 Radiculopathy, lumbosacral region
CPT/HCPCS: 36415; 72114; 80178

== ENCOUNTER → 2023-11-14 | Outpatient (CLI) | payer BC, SELFPAY | END | disposition home or self-care (01) | LOC: MTLAB 15:37 | PROVIDERS: PCP Family Medicine; Referring Provider Physician Assistant; Visit Provider Physician Assistant | DX: Z79.899 Other long term (current) drug therapy (principal) | CPT/HCPCS: 36415; 80178 ==

== ENCOUNTER → 2023-12-29 | Outpatient (CLI) | payer BC, SELFPAY ==
[2023-12-29 09:55] LABS: Hematocrit 44.1 % (40-54); Hemoglobin 14.7 g/dL (13.0-16.5); Mean Corp Hgb Conc 33.3 g/dL (32-36); Mean Corpuscular Hgb 30.2 pg (27.0-32.0); Mean Corpuscular Volume 90.7 fL (80-94); Mean Platelet Vol. 9.6 fl (6.2-12.0); Platelet Count 212 K/mm3 (150-450); RBC Distribution Width CV 13.6 % (11.6-14.6); RBC Distribution Width SD 45.2 fl (35.1-43.9); Red Blood Count 4.86 M/mm3 (4.6-6.2); White Blood Count 5.4 K/mm3 (4.4-11.0)
[2023-12-29 10:26] LABS: Anion Gap 3 (5-15); BUN 13 mg/dL (7-18); BUN/Creat Ratio 12.5 RATIO (10-20); Calcium,Total 8.7 mg/dL (8.5-10.1); Chloride 110 mmol/L (98-107); Creatinine, Serum 1.04 mg/dL (0.70-1.30); EST Glomerular Filtration Rate 81 mL/min (>60); Est Glom Filt Rate - Afr Amer 98 mL/min (>60); Glucose 103 mg/dL (74-106); Potassium 4.4 mmol/L (3.5-5.1); Sodium Level 140 mmol/L (136-145)
== END | disposition home or self-care (01) ==
LOC: LAB 09:26
PROVIDERS: PCP Family Medicine; Referring Provider Physician Assistant; Visit Provider Physician Assistant
DX: Z79.899 Other long term (current) drug therapy (principal)
CPT/HCPCS: 36415; 80048; 80178; 84443; 85027

== ENCOUNTER → 2024-01-26 | Outpatient (CLI) | payer BC, SELFPAY | END | disposition home or self-care (01) | LOC: LAB 09:08 | PROVIDERS: PCP Family Medicine; Referring Provider Physician Assistant; Visit Provider Physician Assistant | DX: Z79.899 Other long term (current) drug therapy (principal) | CPT/HCPCS: 36415; 80178 ==

== ENCOUNTER → 2024-04-04 | Outpatient (CLI) | payer OTHER, SELFPAY ==
--- NOTE | 2024-04-04 15:55 | MRI_ITS ---
EXAM: MR LUMBAR SPINE WITHOUT INTRAVENOUS CONTRAST CLINICAL INDICATION: LUMBAR RADICULOPATHY, PAIN INTO R LEG TECHNIQUE: Multiplanar and multisequence MR images of the lumbar spine without intravenous contrast. COMPARISON: No relevant prior studies available. FINDINGS: VERTEBRAE: See below. SPINAL CORD: Normal. Normal position and signal intensity of the conus medullaris. SOFT TISSUES: Normal. DISCS/SPINAL CANAL/NEURAL FORAMINA: L1-L2: Normal disc height and morphology. Normal spinal canal and lateral recesses. Normal neuroforamina. L2-L3: Normal disc height and morphology. Normal spinal canal and lateral recesses. Normal neuroforamina. L3-L4: Mild disc space narrowing. Broad-based disc protrusion and ligamentous hypertrophy and facet arthropathy results in mild spinal stenosis and severe right and moderate left neural foraminal stenosis. L4-L5: Prominent disc space narrowing associated with Modic type II endplate changes. Left central disc protrusion and prominent facet arthropathy results in severe bilateral neural foraminal narrowing but no spinal stenosis. L5-S1: No significant disc space narrowing. No disc protrusion or spinal stenosis. Prominent bilateral neural foraminal narrowing related to facet arthropathy. MRI/Spine Lumbar (Routine) IMPRESSION: 1. Disc degeneration and multilevel facet arthropathy most prominent at the L4-5 level. 2. No spinal stenosis. 3. Prominent multilevel neural foraminal narrowing as described above. Electronically Signed: Pa Andrade MD at 10:31 EST ,
== END | disposition home or self-care (01) ==
LOC: MRI 15:53
PROVIDERS: PCP Family Medicine; Referring Provider Clinical Nurse Specialist Adult Health; Visit Provider Clinical Nurse Specialist Adult Health
DX: M51.26 Other intervertebral disc displacement, lumbar region (principal)
CPT/HCPCS: 72148

== ENCOUNTER → 2024-08-16 | Outpatient (CLI) | payer BC, SELFPAY ==
[2024-08-16 10:12] LABS: Hematocrit 45.5 % (40-54); Hemoglobin 15.3 g/dL (13.0-16.5); Mean Corp Hgb Conc 33.6 g/dL (32-36); Mean Corpuscular Hgb 29.9 pg (27.0-32.0); Mean Corpuscular Volume 88.9 fL (80-94); Mean Platelet Vol. 9.2 fl (6.2-12.0); Platelet Count 237 K/mm3 (150-450); RBC Distribution Width CV 13.3 % (11.6-14.6); RBC Distribution Width SD 43.6 fl (35.1-43.9); Red Blood Count 5.12 M/mm3 (4.6-6.2); White Blood Count 6.4 K/mm3 (4.4-11.0)
[2024-08-16 10:49] LABS: ALB/GLOB Ratio 1.9 RATIO (0.9-2.4); AST(SGOT) 17 U/L (<=37); Alanine Aminotransfer ALT/SGPT 16 U/L (<=46); Albumin, Serum 4.2 g/dL (3.5-5.0); Alkaline Phosphatase 67 U/L (40-129); Anion Gap 8 (5-15); BUN 15 mg/dL (4-19); BUN/Creat Ratio 13.8 RATIO (10-20); Calcium,Total 8.8 mg/dL (7.6-11.0); Carbon Dioxide 23.8 mmol/L (21.0-32.0); Chloride 108 mmol/L (98-108); Creatinine, Serum 1.08 mg/dL (0.70-1.20); EST Glomerular Filtration Rate 84 (>60); Globulin 2.2 g/dL (2.2-4.2); Glucose 104 mg/dL (70-99); Potassium 4.9 mmol/L (3.3-5.1); Protein, Total 6.5 g/dL (5.9-8.4); Sodium Level 140 mmol/L (133-145); Total Bilirubin 0.59 mg/dL (0.00-1.30)
[2024-08-16 12:36] LABS: Lithium 0.64 mmol/L (0.60-1.20)
== END | disposition home or self-care (01) ==
LOC: LAB 09:40
PROVIDERS: PCP Family Medicine; Referring Provider Physician Assistant; Visit Provider Physician Assistant
DX: Z79.899 Other long term (current) drug therapy (principal)
CPT/HCPCS: 36415; 80053; 80178; 84443; 85027

== ENCOUNTER 2024-11-28 13:31 | Outpatient (CLI) | payer BC, SELFPAY ==
[2024-11-28 18:29] LABS: Anion Gap 12 (5-15); BUN 14 mg/dL (4-19); BUN/Creat Ratio 11.3 RATIO (10-20); Calcium,Total 9.3 mg/dL (7.6-11.0); Carbon Dioxide 23.0 mmol/L (21.0-32.0); Chloride 104 mmol/L (98-108); Glucose 96 mg/dL (70-99); Potassium 4.1 mmol/L (3.3-5.1)
== END 2024-11-28 23:59 | disposition home or self-care (01) ==
PROVIDERS: PCP Family Medicine; Referring Provider Anesthesiology Pain Medicine; Visit Provider Anesthesiology Pain Medicine
DX: Z51.81 Encounter for therapeutic drug level monitoring (principal); Z79.1 Long term (current) use of non-steroidal anti-inflammatories (NSAID)
CPT/HCPCS: 36415; 80048

== ENCOUNTER → 2025-01-27 | Outpatient (CLI) | payer BC, SELFPAY ==
[2025-01-27 17:44] LABS: Hematocrit 42.0 % (40-54); Hemoglobin 14.4 g/dL (13.0-16.5); Mean Corp Hgb Conc 34.3 g/dL (32-36); Mean Corpuscular Volume 87.0 fL (80-94); Mean Platelet Vol. 9.4 fl (6.2-12.0); Platelet Count 262 K/mm3 (150-450); RBC Distribution Width CV 13.2 % (11.6-14.6); RBC Distribution Width SD 42.0 fl (35.1-43.9); Red Blood Count 4.83 M/mm3 (4.6-6.2); White Blood Count 7.5 K/mm3 (4.4-11.0)
[2025-01-27 18:06] LABS: Lithium 0.45 mmol/L (0.60-1.20)
[2025-01-27 18:21] LABS: AST(SGOT) 23 U/L (<=37); Alanine Aminotransfer ALT/SGPT 20 U/L (<=46); Albumin, Serum 4.5 g/dL (3.5-5.0); Alkaline Phosphatase 63 U/L (40-129); Anion Gap 12 (5-15); BUN 17 mg/dL (4-19); BUN/Creat Ratio 15.1 RATIO (10-20); Calcium,Total 9.1 mg/dL (7.6-11.0); Carbon Dioxide 24.3 mmol/L (21.0-32.0); Chloride 105 mmol/L (98-108); Globulin 2.4 g/dL (2.2-4.2); Glucose 103 mg/dL (70-99); Potassium 3.7 mmol/L (3.3-5.1)
[2025-01-27 18:30] LABS: CRP < 3.00 mg/L (0.0-3.0)
== END | disposition home or self-care (01) ==
LOC: MTLAB 15:59
PROVIDERS: PCP Family Medicine; Referring Provider Physician Assistant; Visit Provider Physician Assistant
DX: Z79.899 Other long term (current) drug therapy (principal)
CPT/HCPCS: 36415; 80053; 80178; 85027; 86140

== ENCOUNTER → 2025-03-13 | Outpatient (CLI) | payer BC, SELFPAY ==
[2025-03-13 16:30] LABS: Lithium 0.38 mmol/L (0.60-1.20)
[2025-03-13 16:32] LABS: AST(SGOT) 22 U/L (<=37); Alanine Aminotransfer ALT/SGPT 24 U/L (<=46); Albumin, Serum 4.6 g/dL (3.5-5.0); Alkaline Phosphatase 66 U/L (40-129); Anion Gap 14 (5-15); BUN 12 mg/dL (4-19); BUN/Creat Ratio 9.8 RATIO (10-20); Calcium,Total 9.2 mg/dL (7.6-11.0); Carbon Dioxide 22.4 mmol/L (21.0-32.0); Chloride 103 mmol/L (98-108); Globulin 2.4 g/dL (2.2-4.2); Glucose 125 mg/dL (70-99); Potassium 3.6 mmol/L (3.3-5.1)
== END | disposition home or self-care (01) ==
LOC: MTLAB 13:48
PROVIDERS: PCP Family Medicine; Referring Provider Physician Assistant; Visit Provider Physician Assistant
DX: Z79.899 Other long term (current) drug therapy (principal)
CPT/HCPCS: 36415; 80053; 80178